=== PATIENT | male | born 1965 | race Caucasian/White ===

== ENCOUNTER 2023-06-29 20:54 | Outpatient (OUT) | payer OTHER, SELFPAY | END 2023-06-29 20:55 | disposition home or self-care (01) | LOC: SLEEP 20:55 | PROVIDERS: PCP Internal Medicine; Visit Provider Internal Medicine | DX: G47.33 Obstructive sleep apnea (adult) (pediatric) (principal) | CPT/HCPCS: 95811 ==

== ENCOUNTER 2024-08-03 06:42 | Outpatient (OUT) | payer OTHER, SELFPAY ==
--- OUTSIDE RECORDS SUMMARY | 2024-08-03 06:44 | XMS_ITS | CCD ---
Author Organization [facility] Informformerly [facility], [facility] Partnership [facility] Care Team Providers Care Specialty Sales Consultant Name Role Phone DR RUDI VELEZ Attending Unavailable ROSIE, DR GRIJALVA Consulting Unavailable ROSIE, DR GRIJALVA Admitting Unavailable LISA SANTIAGO Attending Unavailable Ruid Velez DO Primary Care Provider RUDI VELEZ Attending RUDI Costa Referring Unavailable RUDI VELEZ Primary Care Unavailable RUDI VELEZ Attending Unavailable RUDI VELEZ Referring Unavailable RUDI VELEZ Primary Care Unavailable RUDI VELEZ Referring Unavailable RUDI VELEZ Primary Care Unavailable Medications Current Medications Medication Drug Class(es) Dates Sig (Normalized) Sig (Original) amLODIPine 10 mg oral tablet (19 sources) Dihydropyridine Calcium Channel Amanda Start: 01-11-2023 End: 07-08-2024 take 1 tablet by mouth once daily amLODIPine (NORVASC) 10 mg tablet Indications: Essential (primary) hypertension TAKE 1 TABLET BY MOUTH DAILY 90 tablet 1 07/08/2024 Active atorvastatin 20 mg oral tablet (20 sources) HMG-CoA Reductase Inhibitor Start: 02-09-2023 End: 07-08-2024 take 1 tablet by mouth once daily in the morning atorvastatin (LIPITOR) 20 mg tablet Indications: Hyperlipidemia, unspecified TAKE 1 TABLET BY MOUTH EVERY MORNING 90 tablet 1 07/08/2024 Active chlorthalidone 25 mg oral tablet (19 sources) Thiazide-like Diuretic Start: 01-11-2023 End: 07-08-2024 take 1 tablet by mouth once daily chlorthalidone (HYGROTON) 25 mg tablet Indications: Essential (primary) hypertension TAKE 1 TABLET BY MOUTH DAILY 90 tablet 1 07/08/2024 Active losartan potassium 100 mg oral tablet (20 sources) Angiotensin 2 Receptor Amanda Start: 07-08-2024 take 1 tablet by mouth once daily losartan (COZAAR) 100 mg tablet Indications: Essential (primary) hypertension TAKE 1 TABLET BY MOUTH DAILY 90 tablet 1 07/08/2024 Active Start: 01-11-2023 End: 07-08-2024 take 1 tablet by mouth once daily losartan (COZAAR) 100 mg tablet Indications: Essential (primary) hypertension TAKE 1 TABLET BY MOUTH DAILY 90 tablet 04/08/2024 Active potassium chloride 20 meq extended release oral tablet (17 sources) Start: 05-26-2023 End: 02-10-2024 potassium chloride (K-TAB,KLOR-CON) 20 mEq CR tablet Indications: Essential hypertension take 1 tablet by mouth every morning 90 tablet 1 02/10/2024 Active vardenafil 20 mg oral tablet (20 sources) Phosphodiesterase 5 Inhibitor Start: 12-12-2023 End: 04-12-2024 take 1 tablet by mouth once daily in the morning vardenafiL (LEVITRA) 20 MG tablet Indications: Other male erectile dysfunction TAKE 1 TABLET BY MOUTH EVERY MORNING 6 tablet 1 04/12/2024 Active Start: 09-04-2023 take 1 tablet by khurram th once daily as needed vardenafiL (LEVITRA) 20 MG tablet Indications: Other male erectile dysfunction take 1 tablet by mouth every day as needed 6 tablet 2 09/04/2023 Active Start: 05-08-2023 End: 12-12-2023 take 1 tablet by mouth once daily in the morning vardenafiL (LEVITRA) 20 MG tablet Indications: Other male erectile dysfunction take 1 tablet by mouth every morning 6 tablet 12/12/2023 Active Completed/Discontinued Medications Medication Drug Class(es) Dates Sig (Normalized) Sig (Original) amoxicillin 875 mg / clavulanate 125 mg oral tablet (1 source) Penicillin-class Antibacterial Start: 08-14-2022 End: 05-25-2023 amoxicillin-pot clavulanate (AUGMENTIN) 875-125 mg per tablet Problems Active Problems Problem Classification Problem Date Documented Da te Episodic/Chronic Disorders of lipid metabolism (20 sources) Hyperlipidemia, unspecified; Translations: [Hyperlipidemia] Onset: 2022 Chronic Diverticulosis and diverticulitis (20 sources) Diverticula of intestine; Translations: [Diverticulosis of intestine, part unspecified, without perforation or abscess without bleeding] Onset: 03-01-2018 03-01-2018 Chronic Essential hypertension (20 sources) Essential hypertension; Translations: [Essential (primary) hypertension] Onset: 01-16-2018 05-25-2023 Chronic Immunizations and screening for infectious disease (1 source) Encounter for immunization; Translations: [Encounter for immunization] Onset: 07-12-2024 Episodic Joint disorders and dislocations; trauma-related (4 sources) Tear of lateral meniscus of knee; Translations: [Other tear of lateral meniscus, current injury, left knee, initial encounter] Onset: 01-02-2024 01-02-2024 Episodic Other male genital disorders (6 sources) Other male erectile dysfunction; Translations: [Impotence of organic origin] 10-04-2023 Chronic Other nutritional; endocrine; and metabolic disorders (1 source) Severe obesity; Translations: [Class 3 severe obesity due to excess calories with serious comorbidity and body mass index (BMI) of 40.0 to 44.9 in adult ([facility])] 07-12-2024 Chronic Other nutritional; endocrine; and metabolic disorders (1 source) Morbid (severe) obesity due to excess calories; Translations: [Morbid (severe) obesity due to excess calories] Onset: 07-12-2024 Chronic Other nutritional; endocrine; and metabolic disorders (1 source) Body mass index (BMI) 40.0-44.9, adult; Translations: [Body mass index (BMI) 40.0-44.9, adult] Onset: 07-12-2024 Chronic Other screening for suspected conditions (not mental disorders or infectious disease) (18 sources) Patient encounter status; Translations: [Encounter for screening for malignant neoplasm of prostate] Onset: 02-10-2018 05-25-2023 Episodic Residual codes; unclassified (3 sources) Obstructive sleep apnea syndrome; Translations: [Obstructive sleep apnea (adult) (pediatric)] 05-25-2023 Chronic Residual codes; unclassified (1 source) Obstructive sleep apnea (adult) (pediatric); Translations: [Obstructive sleep apnea (adult) (pediatric)] Onset: 01-02-2024 Chronic Spondylosis; intervertebral disc disorders; other back problems (16 sources) Cervical disc disorder; Translations: [Cervical disc disorder, unspecified, unspecified cervical region] Onset: 05-23-2011 2022 Chronic Unclassified (1 source) Obesity, class 3; Translations: [Obesity, class 3] Onset: 07-12-2024 Unclassified (1 source) Annual Exam Onset: 07-12-2024 Past or Other Problems Problem Classification Problem Date Documented Da te Episodic/Chronic Hemorrhoids (16 sources) External hemorrhoids; Translations: [Residual hemorrhoidal skin tags] Onset: 2022 2022 Episodic Mood disorders (16 sources) Mood disorders Onset: 05-25-2023 Resolved: 07-12-2024 05-25-2023 Unclassified (1 source) Acute tear of medial meniscus of left knee 07-12-2024 Results Test Name Value Interpretation Reference Range Facility COMPREHENSIVE METABOLIC PANE Thiago 07-12-2024 Albumin [Mass/Vol] 4.3 g/dL Normal 3.2-5.3 [facility] Comment on above: Performed By: #### Joni RIVERA 20843-9 #### [facility] ([id number]) [address], [address] [place] [address] ALP [Catalytic activity/Vol] 62 U/L Normal 39-130 [facility] Comment on above: Performed By: #### Joni RIVERA 03106-9 #### [facility] ([id number]) [address], [address] [place] [address] ALT [Catalytic activity/Vol] 25 U/L Normal 0-40 [facility] Comment on above: Performed By: #### Joni RIVERA, 79794-6 #### [facility] ([id number]) [address], [address] [place] [address] Anion gap [Moles/Vol] 9 mmol/L Normal 5-15 [facility] Comment on above: Performed By: #### Joni RIVERA, 78632-6 #### [facility] ([id number]) [address], [address] [place] [address] AST [Catalytic activity/Vol] 24 U/L Normal 0-41 [facility] Comment on above: Performed By: #### Joni RIVERA, 00063-7 #### [facility] ([id number]) [address], [address] [place] [address] Bilirubin [Mass/Vol] 0.6 mg/dL Normal 0.3-1.2 [facility] Comment on above: Performed By: #### Joni RIVERA, 30717-6 #### [facility] ([id number]) [address], [address] [place] [address] Calcium [Mass/Vol] 9.3 mg/dL Normal 8.5-10.5 [facility] Comment on above: Performed By: #### Joni RIVERA, 96598-0 #### [facility] ([id number]) [address], [address] [place] [address] Chloride [Moles/Vol] 100 mmol/L Normal 98-109 [facility] Comment on above: Performed By: #### Joni RIVERA, 99925-8 #### [facility] ([id number]) [address], [address] [place] [address] CO2 [Moles/Vol] 29 mmol/L Normal 22-32 [facility] Comment on above: Performed By: #### Joni RIVERA, 47929-7 #### [facility] ([id number]) [address], [address] [place] [address] Creatinine [Mass/Vol] 0.96 mg/dL Normal 0.60-1.30 [facility] Comment on above: Result Comment: METH OD TRACEABLE TO IDMS STANDARD Performed By: #### Joni RIVERA, 17253-9 #### [facility] ([id number]) [address] [address] [place] [address] eGFR (CKD-EPI) NON-RACE DEPENDENT >90 Normal >59 [facility] Comment on above: Result Comment: Reported eGFR is based on the CKD-EPI 2020 equation that does not use a race coefficient. Performed By: #### Joni RIVERA, 43347-6 #### [facility] ([id number]) [address], [address] [place] [address] Glucose [Mass/Vol] 92 mg/dL Normal 65-99 [facility] Comment on above: Performed By: #### Joni RIVERA, 70446-9 #### [facility] ([id number]) [address], [address] [place] [address] Potassium [Moles/Vol] 3.6 mmol/L Normal 3.5-5.0 [facility] Comment on above: Performed By: #### Joni RIVERA, 38023-6 #### [facility] ([id number]) [address], [address] [place] [address] Protein [Mass/Vol] 7.4 g/dL Normal 6.0-8.0 [facility] Comment on above: Performed By: #### Joni RIVERA, 14538-2 #### [facility] ([id number]) [address], [address] [place] [address] Sodium [Moles/Vol] 138 mmol/L Normal 134-146 [facility] Comment on above: Performed By: #### Joni RIVERA, 86798-7 #### [facility] ([id number]) [address], [address] [place] [address] Urea nitrogen [Mass/Vol] 15 mg/dL Normal 5-23 [facility] Comment on above: Performed By: #### Joni RIVERA, 51867-6 #### [facility] ([id number]) [address], [address] [place] [address] Lipid 1996 panelon 5 Cholesterol [Mass/Vol] 178 mg/dL Normal 150-200 [facility] Comment on above: Performed By: #### Joni RIVERA, 80203-8 #### [facility] ([id number]) [address], [address] [place] [address] Cholesterol in HDL [Mass/Vol] 43 mg/dL Normal >39 [facility] Comment on above: Result Comment: HDL <40 mg/dL - High Risk HDL > or = 40mg/dL- Desirable HDL >60 mg/dL - Negative Risk Performed By: #### oJni RIVERA, 74548-3 #### [facility] ([id number]) [address], [address] [place] [address] Cholesterol in LDL [Mass/Vol] 93 mg/dL Normal <130 [facility] Comment on above: Result Comment: LDL <100 mg/dL - Desirable LDL >160 mg/dL - High Risk Performed By: #### Joni RIVERA, 46119-5 #### [facility] ([id number]) [address] [place] [address] Cholesterol in VLDL [Mass/Vol] 42 mg/dL High 0-30 [facility] Comment on above: Performed By: #### Joni RIVERA, 10325-1 #### [facility] ([id number]) [address] [place] [address] CHOLESTEROL:HDL 4.1 Normal 1.0-5.0 [facility] Comment on above: Performed By: #### Joni RIVERA, 70385-8 #### [facility] ([id number]) [address] [place] [address] Triglyceride [Mass/Vol] 210 mg/dL High 27-150 [facility] Comment on above: Performed By: #### Joni RIVERA, 37359-6 #### [facility] ([id number]) [address] [place] [address] Comprehensive metabolic pane thiago 05-25-2023 Albumin [Mass/Vol] 4.3 g/dL 3.2 - 5.3 g/dL [facility] ALP [Catalytic activity/Vol] 58 U/L 39 - 130 U/L [facility] ALT No additional P-5'-P [Catalytic activity/Vol] 41 U/L High 0 - 40 U/L [facility] Anion gap [Moles/Vol] 11 mmol/L 5 - 15 mmol/L [facility] AST [Catalytic activity/Vol] 34 U/L 0 - 41 U/L [facility] Bilirubin [Mass/Vol] 0.6 mg/dL 0.3 - 1.2 mg/dL [facility] Calcium [Mass/Vol] 9.1 mg/dL 8.5 - 10. 5 mg/dL [facility] Chloride [Moles/Vol] 99 mmol/L 98 - 109 mmol/L [facility] CO2 [Moles/Vol] 28 mmol/L 22 - 32 mmol/L [facility] Creatinine [Mass/Vol] 0.94 mg/dL 0.60 - 1.30 mg/dL [facility] Comment on above: METHOD TRACEABLE TO [facility] STANDARD eGFR (CKD-EPI)non-race dependent - PINF [facility] Comment on above: Reported eGFR is based on the CKD-EPI 2020 equation that does not use a race coefficient. Glucose [Mass/Vol] 90 mg/dL 65 - 99 mg/dL [facility] Potassium [Moles/Vol] 3.3 mmol/L Low 3.5 - 5.0 mmol/L [facility] Protein [Mass/Vol] 7.1 g/dL 6.0 - 8.0 g/dL [facility] Sodium [Moles/Vol] 138 mmol/L 134 - 146 mmol/L [facility] Urea nitrogen [Mass/Vol] 20 mg/dL 5 - 23 mg/dL [facility] Lipid 1996 panelon Cholesterol [Mass/Vol] 209 mg/dL High 150 - 200 mg/dL [facility] Cholesterol in HDL [Mass/Vol] 48 mg/dL 39 - PINF mg/dL [facility] Comment on above: HDL <40 mg/dL - High Risk HDL > or = 40mg/dL- Desirable HDL >60 mg/dL - Negative Risk Cholesterol in LDL [Mass/Vol] 107 mg/dL NINF - 130 mg/dL [facility] Comment on above: LDL <100 mg/dL - Desirable LDL >160 mg/dL - High Risk Cholesterol in VLDL [Mass/Vol] 54 mg/dL High 0 - 30 mg/dL [facility] Cholesterol.total/C holesterol in HDL [Mass ratio] 4.4 {ratio} 1.0 - 5.0 [facility] Triglyceride [Mass/Vol] 270 mg/dL High 27 - 150 mg/dL [facility] No Panel Informationon 05-25 Interpretation and review of laboratory results Abnormal [facility] [employer] [facility] Prostate specific Ag [Mass/V ol]on 05-25-2023 [facility] Prostatic specific antigen s creenon 05-25-2023 Prostate specific Ag [Mass/Vol] 0.45 ng/mL 0.00 - 4.00 ng/mL [facility] Comment on above: The method used for this test is Jeff Megha DXI chemiluminescent immunoassay. Values obtained by different assay methods cannot be used interchangeably. LIPID PROFILEon 02-02-2022 CHOL-HDL RATIO NORM SEE BELOW Normal [facility] Comment on above: Result Comment: 3.3 - 4.4 LOW RISK 4.4 - 7.1 AVERAGE RISK 7.1 - 11.0 MODERATE RISK >11.0 HIGH RISK Performed By: #### L SAMANTHA, CMP #### [facility] [address] [place] [address] Dr. Emelia Tirado Cholesterol [Mass/Vol] 185 mg/dL Normal <=200 [facility] Comment on above: Performed By: #### L SAMANTHA, CMP #### [facility] [address] [place] [address] Dr. Emelia Tirado Cholesterol in HDL [Mass/Vol] 45 mg/dL Normal 40-60 [facility] Comment on above: Performed By: #### L IPID, CMP #### [facility] [address] [address] [address] Emelia Tirado Cholesterol in LDL [Mass/Vol] 94.4 mg/dL Normal [facility] Comment on above: Performed By: #### L IPID, CMP #### [facility] [address] [address] [address] mEelia Tirado Cholesterol.total/C holesterol in HDL [Mass ratio] 4.1 {ratio} Normal [facility] Comment on above: Performed By: #### L IPID, CMP #### [facility] [address] [place] [address] Dr. Emelia Tirado HDL NORMAL > or = 60 mg/dl - LO W CARDIOVASCULAR RISK <40 mg/dl - HIGH CARDIOVASCULAR RISK Normal [facility] Comment on above: Performed By: #### L IPID, CMP #### [facility] [address] [place] [address] Dr. Emelia Tirado LDL CALC NORMAL SEE BELOW Normal [facility] Comment on above: Result Comment: <100 mg/dl OPTIMAL 100 - 129 mg/dl NEAR OR ABOVE OPTIMAL 130 - 159 mg/dl BORDERLINE HIGH 160 - 189 mg/dl HIGH >190 mg/dl VERY HIGH Performed By: #### L IPID, CMP #### [facility] [address] [place] [address] Dr. Emelia Tirado Triglyceride [Mass/Vol] 228 mg/dL Critically high <=150 [facility] Comment on above: Performed By: #### L IPID, CMP #### [facility] [address] [address] [address] Emelia Tirado VLDL CALC 45.6 mg/dL Normal [facility] Comment on above: Performed By: #### L IPID, CMP #### [facility] [address] [place] [address] Dr. Emelia Tirado PROF 14(COMP METB)on 022 Albumin [Mass/Vol] 4.0 g/dL Normal 3.4-5.0 [facility] Comment on above: Performed By: #### L IPID, CMP #### [facility] [address] [place] [address] Dr. Emelia Tirado Albumin/Globulin [Mass ratio] 1.2 {ratio} Normal [facility] Comment on above: Performed By: #### L IPID, CMP #### [facility] [address] [address] [address] Emelia Tirado ALP [Catalytic activity/Vol] 72 U/L Normal 46-116 [facility] Comment on above: Performed By: #### L IPID, CMP #### [facility] [address] [place] [address] Dr. Emelia Tirado ALT [Catalytic activity/Vol] 32 U/L Normal 16-63 [facility] Comment on above: Performed By: #### L IPID, CMP #### [facility] [address] [place] [address] Dr. Emelia Tirado Anion gap [Moles/Vol] 11.1 mmol/L Normal [facility] Comment on above: Performed By: #### L IPID, CMP #### [facility] [address] [place] [address] Dr. Emelia Tirado AST [Catalytic activity/Vol] 23 U/L Normal 15-37 [facility] Comment on above: Performed By: #### L IPID, CMP #### [facility] [address] [place] [address] Dr. Emelia Tirado Bilirubin [Mass/Vol] 0.6 mg/dL Normal 0.2-1.0 [facility] Comment on above: Performed By: #### L IPID, CMP #### [facility] [address] [address] [address] Emelia Tirado Calcium [Mass/Vol] 9.0 mg/dL Normal 8.5-10.1 [facility] Comment on above: Performed By: #### L IPID, CMP #### [facility] [address] [place] [address] Dr. Emelia Tirado Chloride [Moles/Vol] 98 mmol/L Normal 98-107 [facility] Comment on above: Performed By: #### L IPID, CMP #### [facility] [address] [place] [address] Dr. Emelia Tirado CO2 [Moles/Vol] 32.1 mmol/L Critically high 21.0-32.0 [facility] Comment on above: Performed By: #### L IPID, CMP #### [facility] [address] [place] [address] Dr. Emelia Tirado Creatinine [Mass/Vol] 1.12 mg/dL Normal 0.70-1.30 [facility] Comment on above: Performed By: #### L IPID, CMP #### [facility] [address] [place] [address] Dr. Emelia Tirado EGFR-AF [place] >60 Normal >=60 [facility] Comment on above: Performed By: #### L IPID, CMP #### [facility] [address] [place] [address] Dr. Emelia Tirado EGFR-NON AF [place] >60 Normal >=60 [facility] Comment on above: Performed By: #### L IPID, CMP #### [facility] [address] [place] [address] Dr. Emelia Tirado Globulin (S) [Mass/Vol] 3.4 g/dL Normal [facility] Comment on above: Performed By: #### L IPID, CMP #### [facility] [address] [place] [address] Dr. Emelia Tirado Glucose [Mass/Vol] 96 mg/dL Normal 74-106 [facility] Comment on above: Performed By: #### L IPID, CMP #### [facility] [address] [address] [address] Emelia Tirado Potassium [Moles/Vol] 3.2 mmol/L Critically low 3.5-5.1 [facility] Comment on above: Performed By: #### L IPID, CMP #### [facility] [address] [place] [address] Dr. Emelia Tirado Protein [Mass/Vol] 7.4 g/dL Normal 6.4-8.2 [facility] Comment on above: Performed By: #### L IPID, CMP #### [facility] [address] [address] [address] Emelia Tirado Sodium [Moles/Vol] 138 mmol/L Normal 136-145 [facility] Comment on above: Performed By: #### L IPID, CMP #### [facility] [address] [address] [address] Emelia Tirado Urea nitrogen [Mass/Vol] 15.0 mg/dL Normal 7.0-18.0 [facility] Comment on above: Performed By: #### L IPID, CMP #### [facility] [address] [place] [address] Dr. Emelia Tirado Urea nitrogen/Creatinine [Mass ratio] 13.4 mg/mg Normal [facility] Comment on above: Performed By: #### L IPID, CMP #### [facility] [address] [place] [address] Dr. Emelia Tirado COMPREHENSIVE METABOLIC PANE [facility] 06-17-2021 Albumin [Mass/Vol] 4.3 g/dL Normal 3.6-5.1 [facility] Comment on above: Performed By: #### 1 023, 3570 #### [facility] [address] Manager Med Surg: Taz Cordero MD Albumin/Globulin [Mass ratio] 1.8 {ratio} Normal 1.0-2.5 [facility] Comment on above: Performed By: #### 1 023, 6370 #### [facility] [address], [address] [place], [place] [id number] Manager Med Surg: Taz Cordero MD ALP [Catalytic activity/Vol] 68 U/L Normal 35-144 [facility] Comment on above: Performed By: #### 1 023, 1870 #### [facility] [address], [address] [place], [place] [id number] Manager Med Surg: Taz Cordero MD ALT [Catalytic activity/Vol] 34 U/L Normal 9-46 [facility] Comment on above: Performed By: #### 1 0231, 7600 #### [facility] of [address], [address] [place] [address] Manager Med Surg: Taz Cordero MD AST [Catalytic activity/Vol] 25 U/L Normal 10-35 [facility] Comment on above: Performed By: #### 1 0231, 7600 #### [facility] of [address], [address] [place] [address] Manager Med Surg: Taz Cordero MD Bilirubin [Mass/Vol] 0.7 mg/dL Normal 0.2-1.2 [facility] Comment on above: Performed By: #### 1 0231, 7600 #### [facility] of [address] [address] Manager Med Surg: Taz Cordero MD BUN/CREATININE RATIO NOT APPLICABLE Normal 6-22 [facility] Comment on above: Performed By: #### 1 0231, 7600 #### [facility] of [address], [address] [place] [address] Manager Med Surg: Taz Cordero MD Calcium [Mass/Vol] 9.1 mg/dL Normal 8.6-10.3 [facility] Comment on above: Performed By: #### 1 0231, 7600 #### [facility] of [address], [address] [place] [address] Manager Med Surg: Taz Cordero MD Chloride [Moles/Vol] 103 mmol/L Normal 98-110 [facility] Comment on above: Performed By: #### 1 0231, 7600 #### [facility] of [address], [address] [place] [address] Manager Med Surg: Taz Cordero MD CO2 [Moles/Vol] 29 mmol/L Normal 20-32 [facility] Comment on above: Performed By: #### 1 0231, 7600 #### [facility] of [address], [address] [place] [address] Manager Med Surg: Taz Cordero MD Creatinine [Mass/Vol] 1.01 mg/dL Normal 0.70-1.33 [facility] Comment on above: Result Comment: For patients >49 years of age, the reference limit for Creatinine is approximately 13% higher for people identified as -Cameroonian. Performed By: #### 1 023, 7600 #### [facility] [address], [address] [place] [address] Manager Med Surg: Taz Cordero MD eGFR NON-AFR. [place] 83 mL/min/1.73m2 Normal > OR = 60 [facility] Comment on above: Performed By: #### 1 023, 7600 #### [facility] [place] [address] Manager Med Surg: Taz Cordero MD GFR/1.73 sq M.predicted among blacks MDRD (S/P/Bld) [Vol rate/Area] 97 mL/min/{1.73_m2} Normal > OR = 60 [facility] Comment on above: Performed By: #### 1 023, 7600 #### [facility] [address], [address] [place] [address] Manager Med Surg: Taz Cordero MD Globulin (S) [Mass/Vol] 2.4 g/dL Normal 1.9-3.7 [facility] Comment on above: Performed By: #### 1 023, 7600 #### [facility] [address], [address] [place] [address] Manager Med Surg: Taz Cordero MD Glucose [Mass/Vol] 82 mg/dL Normal 65-99 [facility] Comment on above: Result Comment: Fasting reference interval Performed By: #### 1 0231, 7600 #### [facility] [place] [address] Manager Med Surg: Taz Cordero MD Potassium [Moles/Vol] 3.8 mmol/L Normal 3.5-5.3 [facility] Comment on above: Performed By: #### 1 0231, 7600 #### [facility] [address], [address] [place] [address] Manager Med Surg: Taz Cordero MD Protein [Mass/Vol] 6.7 g/dL Normal 6.1-8.1 [facility] Comment on above: Performed By: #### 1 0231, 7600 #### [facility] [place] [address] Manager Med Surg: Taz Cordero MD Sodium [Moles/Vol] 139 mmol/L Normal 135-146 [facility] Comment on above: Performed By: #### 1 0231, 7600 #### [facility] [place] [address] Manager Med Surg: Taz Cordero MD Urea nitrogen [Mass/Vol] 16 mg/dL Normal 7-25 [facility] Comment on above: Performed By: #### 1 023, 7600 #### [facility] [place] [address] Manager Med Surg: Taz Cordero MD LIPID PANEL, [facility] 05-24 Cholesterol [Mass/Vol] 189 mg/dL Normal <200 [facility] Comment on above: Order Comment: FASTI NG:YES FASTING: YES Performed By: #### 1 0231, 7600 #### [facility] [place] [address] Manager Med Surg: Taz Cordero MD Cholesterol in HDL [Mass/Vol] 45 mg/dL Normal > OR = 40 [facility] Comment on above: Order Comment: FASTI NG:YES FASTING: YES Performed By: #### 1 0231, 7600 #### [facility] [place] [address] Manager Med Surg: Taz Cordero MD Cholesterol in LDL [Mass/Vol] 107 mg/dL High [facility] Comment on above: Order Comment: FASTI NG:YES FASTING: YES Result Comment: Refe rence range: <100 Desirable range <100 mg/dL for primary prevention; <70 mg/dL for patients with CHD or diabetic patients with > or = 2 CHD risk factors. LDL-C is now calculated using the Alexander-Serrano calculation, which is a validated novel method providing better accuracy than the Friedewald equation in the estimation of LDL-C. Alexander SS et al. JOHN. 2013;310(19): 4053-4969 (http://education.[employer]/faq/LEL824) Performed By: #### 1 023, 0 #### [facility] [address], [address] [place] [address] Manager Med Surg: Taz Cordero MD Cholesterol.total/C holesterol in HDL [Mass ratio] 4.2 {ratio} Normal <5.0 [facility] Comment on above: Order Comment: FASTI NG:YES FASTING: YES Performed By: #### 1 023, 0 #### [facility] [address], [address] [place] [address] Manager Med Surg: Taz Cordero MD NON HDL CHOLESTEROL 144 mg/dL (calc) High <130 [facility] Comment on above: Order Comment: FASTI NG:YES FASTING: YES Result Comment: For patients with diabetes plus 1 major ASCVD risk factor, treating to a non-HDL-C goal of <100 mg/dL (LDL-C of <70 mg/dL) is considered a therapeutic option. Performed By: #### 1 023, 0 #### [facility] [address], [address] [place] [address] Manager Med Surg: Taz Cordero MD Triglyceride [Mass/Vol] 243 mg/dL High <150 [facility] Comment on above: Order Comment: FASTI NG:YES FASTING: YES Result Comment: If a non-fasting specimen was collected, consider repeat triglyceride testing on a fasting specimen if clinically indicated. Pacheco et al. J. of Clin. Lipidol. 2015;9:129-169. Performed By: #### 1 230, 0 #### [facility] [address], [address] [place] [address] Manager Med Surg: Taz Cordero MD Vital Signs Date Time Vital Sign Value Performing Clinician Karri harvey 07-12-2024 15:22-0500 Body height 175.3 cm Rudi Yuhas DO Work Phone: [facility] [employer] [facility] 07-12-2024 15:22-0500 Body mass index (BMI) [Ratio] 41.05 kg/m2 Rudi Ganhas DO Work Phone: [facility] [employer] [facility] 07-12-2024 15:22-0500 Body weight 126.1 kg Rudi Ganhas DO Work Phone: [facility] [employer] [facility] 07-12-2024 15:22-0500 Diastolic blood pressure 82 mm[Hg] Rudi Ganhas DO Work Phone: [facility] [employer] [facility] 07-12-2024 15:22-0500 Heart rate 66 /min Rudi Ganhas DO Work Phone: [facility] 07-12-2024 15:22-0500 SaO2% (BldA) [Mass fraction] 99 % Rudi Orrs DO Work Phone: [facility] 07-12-2024 15:22-0500 Systolic blood pressure 118 mm[Hg] Rudi Orrs DO Work Phone: [facility] 01-02-2024 14:51-0400 Body height 175.3 cm Rudi Orrs DO Work Phone: [facility] 01-02-2024 14:51-0400 Body mass index (BMI) [Ratio] 39.75 kg/m2 Rudi Ganhas DO Work Phone: [facility] 01-02-2024 14:51-0400 Body temperature 97.7 [degF] Rudi Ganhas DO Work Phone: [facility] [employer] [facility] 01-02-2024 14:51-0400 Body weight 122.11 kg Rudi Ganhas DO Work Phone: [facility] 01-02-2024 14:51-0400 Diastolic blood pressure 70 mm[Hg] Rudi Ganhas DO Work Phone: [facility] 01-02-2024 14:51-0400 Heart rate 56 /min Rudi [facility]elez DO [facility] 01-02-2024 14:51-0400 SaO2% (BldA) [Mass fraction] 98 % Rudi [facility]elez DO [facility] 01-02-2024 14:51-0400 Systolic blood pressure 122 mm[Hg] Rudi Velez DO Work Phone: [facility] [employer] 05-25-2023 16:08-0500 Body height 175.3 cm Rudi [facility]elez DO [facility] 05-25-2023 16:08-0500 Body mass index (BMI) [Ratio] 38.44 kg/m2 Rudi Velez DO Work Phone: [facility] [employer] 05-25-2023 16:08-0500 Body temperature 96.6 [degF] Rudi Velez DO Work Phone: [facility] [employer] 05-25-2023 16:08-0500 Body weight 118.07 kg Rudi [facility]elez DO [facility] 05-25-2023 16:08-0500 Diastolic blood pressure 70 mm[Hg] Rudi [facility]elez DO [facility] 05-25-2023 16:08-0500 Heart rate 81 /min Rudi Velez DO Work Phone: [facility] [employer] 05-25-2023 16:08-0500 SaO2% (BldA) [Mass fraction] 96 % Rudi Velez DO Work Phone: [facility] [employer] 05-25-2023 16:08-0500 Systolic blood pressure 118 mm[Hg] Rudi Velez DO Work Phone: [facility] [employer] [facility] Encounters Encounter Date Encounter Type Care Provider Facility Start: 07-12-2024 End: 07-12-2024 ambulatory RUDI VELEZ [facility] Start: 07-12-2024 End: 07-12-2024 Office outpatient visit 25 minutes Rudi Velez DO Work Phone: [facility] Comment on above: Essential hypertensi on (Primary Dx); EMIL (obstructive sleep apnea); Hyperlipidemia, unspecified hyperlipidemia type; Class 3 severe obesity due to excess calories with serious comorbidity and body mass index (BMI) of 40.0 to 44.9 in adult ([facility]); Acute medial meniscus tear of left knee, subsequent encounter; Encounter for immunization Start: 07-12-2024 End: 07-12-2024 ambulatory [facility] Start: 07-08-2024 End: 07-08-2024 Refill Rudi Velez DO Work Phone: [facility] Comment on above: Essential (primary) hypertension; Hyperlipidemia, unspecified Start: 04-12-2024 End: 04-12-2024 Refill Rudi Velez DO Work Phone: [facility] Comment on above: Other male erectile dysfunction Start: 04-08-2024 End: 04-08-2024 Refill Rudi Velez DO Work Phone: [facility] Comment on above: Essential (primary) hypertension Start: 02-10-2024 End: 02-10-2024 Refill Rudi Velez DO Work Phone: [facility] Comment on above: Other male erectile dysfunction; Essential hypertension Start: 01-08-2024 End: 01-08-2024 Refill Rudi Velez DO Work Phone: [facility] Comment on above: Hyperlipidemia, unsp ecified; Essential (primary) hypertension Start: 01-02-2024 End: 01-02-2024 Office outpatient visit 25 minutes Rudi Velez DO Work Phone: [facility] - [facility] Comment on above: Essential hypertensi on (Primary Dx); EMIL (obstructive sleep apnea); Tear of lateral meniscus of left knee, current, initial encounter Start: 01-02-2024 End: 01-02-2024 ambulatory RUDI VELEZ [facility] Start: 12-12-2023 End: 12-12-2023 Refill Rudi Velez DO Work Phone: [facility] Comment on above: Other male erectile dysfunction Start: 11-10-2023 End: 11-10-2023 Refill Rudi Velez DO Work Phone: [facility] Comment on above: Other male erectile dysfunction Start: 11-07-2023 End: 11-23-2023 Telephone encounter Rudi Velez DO Work Phone: [facility] Start: 10-06-2023 End: 10-07-2023 Refill Rudi Velez DO Work Phone: [facility] Comment on above: Essential hypertensi on; Essential (primary) hypertension Start: 10-04-2023 End: 10-04-2023 Refill Rudi Velez DO Work Phone: [facility] Comment on above: Hyperlipidemia, unsp ecified; Other male erectile dysfunction Start: 09-26-2023 End: 09-26-2023 ambulatory LISA SANTIAGO Not Available Start: 09-03-2023 End: 09-04-2023 Refill Rudi Velez DO Work Phone: [facility] Comment on above: Other male erectile dysfunction Start: 08-08-2023 Refill Rudi Vleez D O Work Phone: [facility] Comment on above: Hyperlipidemia, unsp ecified Start: 07-11-2023 Refill Rudi Velez D O Work Phone: [facility] Comment on above: Essential (primary) hypertension Start: 05-25-2023 End: 05-25-2023 Encounter for general adult medical examination with abnormal findings Rudi Velez DO [facility] Work Phone: Start: 05-25-2023 End: 05-25-2023 Periodic preventive med est patient 40-64yrs Rudi Lilliam Velez DO Work Phone: [facility] Comment on above: Abnormal wellness ex am (Primary Dx); EMIL (obstructive sleep apnea); Encounter for screening for malignant neoplasm of prostate; Essential hypertension; Hyperlipidemia, unspecified hyperlipidemia type Start: 02-02-2022 End: 02-03-[address] RUDI VELEZ Facility:[facility]1 Procedures Date Procedure Procedure Detail Performing Clinician Start: 07-12-2024 Adult depression screening assessment Rudi Velez DO Work Phone: Start: 05-25-2023 Adult depression screening assessment Rudi Velez DO Work Phone: Plan of Treatment Date Care Activity Detail Author Start: 08-16-2032 DTaP,Tdap and Td Vaccines (2 - Td or Tdap) DTaP,Tdap and Td Vaccines (2 - Td or Tdap) [facility] Start: 07-12-2025 Adult BMI Screening Adult BMI Screen ing [facility] Start: 07-12-2025 Depression Screening Depression Scre ening [facility] Start: 07-12-2025 Tobacco Screening Tobacco Screening [facility] Start: 01-01-2025 Adult BMI Screening Adult BMI Screen ing [facility] Start: 01-01-2025 Tobacco Screening Tobacco Screening [facility] Start: 07-12-2024 End: 07-12-2024 Patient encounter procedure 07/12/2024 3:30 PM EST [facility] [address] [place] [address] Rudi Velez DO [address] [place] [address] [facility] Start: 07-12-2024 End: 07-12-2025 MR Knee WO contrast MR knee left without contrast Imaging Routine Acute medial meniscus tear of left knee, subsequent encounter Expected: 07/12/2024, Expires: 07/12/2025 [facility] Work Phone: Comment on above: Expected: 07/12/2024 , Expires: 07/12/2025 Start: 05-29-2024 End: 05-29-2024 Patient encounter procedure 05/29/2024 2:00 PM EST Office Visit [facility] [address] [place] [address] Rudi Velez, [address] [place] [address] [facility] Start: 05-25-2024 Adult BMI Screening Adult BMI Screen ing [facility] Start: 05-25-2024 Depression Screening Depression Scre ening [facility] Start: 05-25-2024 Tobacco Screening Tobacco Screening [facility] Start: 01-22-2024 COVID-19 Vaccine ( season) COVID-19 Vaccine ( season) [facility] Start: 01-22-2024 COVID-19 Vaccine ( season) COVID-19 Vaccine ( season) [facility] Start: 01-22-2024 Influenza vaccination Influenza Vacc ine [facility] Start: 01-02-2024 End: 01-02-2024 Patient encounter procedure 01/02/2024 3:00 PM EDT Office Visit [facility] - Family [facility] [address] [place] [address] Rudi Velez, [address] [place] [address] [facility] Start: 01-21-2023 COVID-19 Vaccine ( season) COVID-19 Vaccine ( season) [facility] Start: 01-21-2023 Influenza vaccination Influenza Vacc ine [facility] Start: 01-28-1984 Adult BMI Follow Up Plan Adult BMI Follow Up Plan [facility] End: 01-01-2025 Basic metabolic 2000 panel - Serum or Plasma Basic Metabolic Panel Lab Routine Essential hypertension 1 Occurrences starting 01/02/2024 until 01/01/2025 [facility] Work Phone: Comment on above: 1 Occurrences starti ng 01/02/2024 until 01/01/2025 End: 07-12-2025 Comprehensive metabolic 2000 panel - Serum or Plasma Comprehensive metabolic panel Lab Routine Hyperlipidemia, unspecified hyperlipidemia type 1 Occurrences starting 07/12/2024 until 07/12/2025 [facility] Comment on above: 1 Occurrences starti ng 07/12/2024 until 07/12/2025 End: 07-12-2025 Lipid 1996 panel - Serum or Plasma Lipid profile Lab Routine Hyperlipidemia, unspecified hyperlipidemia type 1 Occurrences starting 07/12/2024 until 07/12/2025 [facility] Comment on above: 1 Occurrences starti ng 07/12/2024 until 07/12/2025 Immunizations Immunization Date Immunization Notes Care Provider Fa cili 07-12-2024 influenza, seasonal, injectable, preservative free Rudi Velez DO Work Phone: [facility] 07-12-2024 Immunization, In Clinic,; Translations: [Drug or medicament (substance)] Rudi Velez DO Work Phone: [facility] 08-16-2022 tetanus toxoid, redu tanvir diphtheria toxoid, and acellular pertussis vaccine, adsorbed Rudi Velez DO Work Phone: [facility] 02-26-2021 influenza, seasonal, injectable Rudi Velez DO Work Phone: [facility] 02-26-2021 influenza virus vaccine, unspecified formulation Rudi Velez DO Work Phone: [facility] 03-06-2020 influenza, intraderm al, quadrivalent, preservative free, injectable Rudi Velez DO Work Phone: [facility] 02-05-2020 influenza, injectabl e, quadrivalent, preservative free Rudi Orrs DO Work Phone: [facility] 12-05-2018 zoster vaccine recombinant Rudi Orrs DO Work Phone: [facility] 06-08-2018 zoster vaccine recombinant Rudi Orrs DO Work Phone: [facility] 02-20-2018 zoster vaccine recombinant Rudi Orrs DO Work Phone: [facility] 02-21-2016 influenza, seasonal, injectable Rudi Orrs DO Work Phone: [facility] 03-31-2015 influenza, seasonal, injectable, preservative free Rudi Velez DO Work Phone: [facility] 04-15-2009 novel [id number], preservative-free, injectable Rudi Velez DO Work Phone: [facility] Payers Date Payer Category Payer Managed Care Other (unspecified) [employer] [id number] 2022 Private Health Insurance [facility] [employer] [id number] 2022-Present [phone] [address] [address] [place] [address] [id number] 2022 Unknown [id number] 1966 Unknown [id number] 1966 Unknown [id number] 1966 Unknown [id number] 1966 Unknown [id number] 1966 Unknown [id number] 1959 Unknown [id number] Social History Date Type Detail Facility Start: 08-16-2022 Tobacco smoking stat [facility] Never smoked tobacco [facility] Start: 08-16-2022 Tobacco use and exposure Smokeless tobacco non-user [facility] Start: 05-25-2023 End: 07-12-2024 Alcohol intake Current drinker of alcohol (finding) [facility] Start: 07-03-2020 End: 05-25-2023 Alcohol intake [facility] Start: 07-03-2020 End: 05-25-2023 Tobacco use panel [facility] Adolescent depressio n screening assessment 0 [facility] Start: 1965 Sex Assigned At Not on file P [facility] How hard is it for y ou to pay for the very basics like food, housing, medical care, and heating Not very hard [facility] Start: 12-26-2014 Sex Male (finding) [facility] Clinical Notes 05-25-2023 to 07-12-2024 Rudi Velez, - 07/12/2024 3:30 PM ESTRudi Velez, DO - 01/02/2024 3:00 PM EDTTelephone Encounter - Jessica Cohu - 11/07/2023 11:09 AM EDTRudi Velez, - 05/25/2023 3:30 PM EST Note Date & Type Note Facility 07-12-2024 History of Presen t illness Narrative IM PROGRESS NOTE Patient - Stacy Boles Age - 59 [facility] 1965 [id number] ASSESSMENT & PLAN 1. Essential hypertension (Primary) -goals of treatment were reviewed with the patient. -home and office readings are at goal-continue losartan 100 mg daily plus amlodipine 10 mg daily plus chlorthalidone 25 mg daily 2. EMIL (obstructive sleep apnea) -using his CPAP 99% of the time -unable to sleep without it -definitely is benefitting from ongoing use 3. Hyperlipidemia, unspecified hyperlipidemia type -currently taking atorvastatin 20 mg daily -repeat lipid panel to assess efficacy of current treatment - Comprehensive metabolic panel; Future - Lipid profile; Future 4. Class 3 severe obesity due to excess calories with serious comorbidity and body mass index (BMI) of 40.0 to 44.9 in adult ([facility]) -I reviewed his current weight and BMI -I advised him that he is in the severe obesity category -we discussed weight loss methods including structured diet such as lose it or weight watchers -may also benefit from addition of a G LP 1 agent 5. Acute medial meniscus tear of left knee, subsequent encounter -Luis test positive once again -continues to have symptoms, with more instability at this time -proceed with MRI of the knee, and further recommendations following results - MR knee left without contrast; Future 6. Encounter for immunization -flu vaccination given today - FLU VACCINE TS 2023-(6MOS UP)(PF) 45 MCG(15MCG X3)/0.5 ML IM SYRINGE - Immunization, In Clinic,; Inject into the appropriate muscle once for 1 dose. Sign this order to satisfy the OSBOP Positive ID requirements for immunization orders. Subjective CARDIOVASCULAR FOLLOW-UP This is a follow up of a pre-existing problem. Blood pressures are being checked outside the office. Frequency: occasional Readings have been normal. BP readings outside the office range from 120 - 129 mmHg systolic and 60 - 69 mmHg diastolic. The 10-year ASCVD risk score (Mei MAYNARD, et al., 2019) is: 8% Values used to calculate the score: Age: 59 years Sex: Male Is Non- : No Diabetic: No Tobacco smoker: No Systolic Blood Pressure: 118 mmHg Is BP treated: Yes HDL Cholesterol: 48 mg/dL Total Cholesterol: 209 mg/dL Patient reports following dosing instructions Physical activity: The patient does not participate in regular exercise at present. His knee has been bothering him. Dietary efforts show could use some improvement. Not restricting calories or portion sizes. CV symptoms review was negative for rapid or irregular heart rate, palpitations, syncope A review of systems was negative except for the following: General: weight gain Musculoskeletal: pain in knee - left. Dull ache sensation after walking or standing on his left knee. Does feel some instability when walking down stairs, or planting heavily on his left leg. Exam BP 118/82 (BP Site: Left Arm, BP Postition: Sitting) Pulse 66 Ht 175.3 cm (5' 9 ) Wt 126.1 kg (278 lb) SpO2 99% BMI 41.05 kg/m Physical Exam Vitals reviewed. Constitutional: General: He is not in acute distress. Appearance: He is obese. He is not toxic-appearing. HENT: Head: Normocephalic. Right Ear: External ear normal. Left Ear: External ear normal. Nose: No congestion or rhinorrhea. Mouth/Throat: Pharynx: No posterior oropharyngeal erythema. Eyes: General: No scleral icterus. Neck: Vascular: No carotid bruit. Cardiovascular: Rate and Rhythm: Normal rate. Pulses: Normal pulses. Heart sounds: No murmur heard. No gallop. Pulmonary: Effort: Pulmonary effort is normal. Breath sounds: No wheezing or rales. Abdominal: Palpations: Abdomen is soft. Musculoskeletal: General: Tenderness (Lateral left knee joint) present. No swelling. Right lower leg: No edema. Left lower leg: No edema. Comments: Left popliteal fossa without tenderness or pain. Left knee Luis with clicking in the medial joint space. Left knee drawer sign negative. No effusion noted. Lymphadenopathy: Cervical: No cervical adenopathy. Skin: General: Skin is warm and dry. Coloration: Skin is not jaundiced. Findings: No bruising. Neurological: General: No focal deficit present. Mental Status: He is alert and oriented to person, place, and time. Psychiatric: Mood and Affect: Mood normal. Behavior: Behavior normal. Meds Current Outpatient Medications: amLODIPine (NORVASC) 10 mg tablet, TAKE 1 TABLET BY MOUTH DAILY, Disp: 90 tablet, Rfl: 1 atorvastatin (LIPITOR) 20 mg tablet, TAKE 1 TABLET BY MOUTH EVERY MORNING, Disp: 90 tablet, Rfl: 1 chlorthalidone (HYGROTON) 25 mg tablet, TAKE 1 TABLET BY MOUTH DAILY, Disp: 90 tablet, Rfl: 1 losartan (COZAAR) 100 mg tablet, TAKE 1 TABLET BY MOUTH DAILY, Disp: 90 tablet, Rfl: 1 potassium chloride (K-TAB,KLOR-CON) 20 mEq CR tablet, take 1 tablet by mouth every morning, Disp: 90 tablet, Rfl: 1 vardenafiL (LEVITRA) 20 MG tablet, TAKE 1 TABLET BY MOUTH EVERY MORNING, Disp: 6 tablet, Rfl: 1 Immunization, In Clinic,, Inject into the appropriate muscle once for 1 dose. Sign this order to satisfy the OSBOP Positive ID requirements for immunization orders., Disp: , Rfl: Lab Results No visits with results within 1 Month(s) from this visit. Latest known visit with results is: Orders Only on 01/05/2024 Component Date Value Ref Range Status External Anion Gap 01/04/2024 9.0 Final External Blood Urea Nitrogen Bun 01/04/2024 23 Final External Calcium Ca 01/04/2024 9.6 Final External Chloride 01/04/2024 102 Final External Co2 / Carbon Dioxide 01/04/2024 29 Final External Creatinine 01/04/2024 1.40 Final External Gfr Non Amer 01/04/2024 59 Final External Glucose Fasting Or Rando* 01/04/2024 122 Final External Potassium K 01/04/2024 3.6 Final External Sodium Na 01/04/2024 140 Final Other Testing No results found. Rudi Velez DO., [facility] Office: [phone] documented in this encounter [facility] 01-02-2024 History of Presen t illness Narrative IM PROGRESS NOTE Patient - Stacy Boles Age - 58 y.o. - 1965 ASSESSMENT & PLAN 1. Essential hypertension -goals of treatment reviewed with the patient. -he currently is at goal in office and at home -no change to amlodipine 10 mg daily plus losartan 100 mg daily plus chlorthalidone 25 mg daily, with K-Tab 20 mEq daily -repeat BMP to assess previously noted hypokalemia - Basic Metabolic Panel; Future 2. EMIL (obstructive sleep apnea) -now on CPAP nightly and as needed -he is tolerating well, and feels better using it -no changes 3. Tear of lateral meniscus of left knee, current, initial encounter -this appears to be very mild, but does have S/S consistent with a tear -we discussed treatment options -will proceed with conservative therapy utilizing HEP involving strengthening of the quadriceps and other leg muscles -he was advised to wear a elastic knee brace when performing prolonged activity on his legs, or when on uneven surfaces -if symptoms would worsen, will need imaging of the left knee Subjective CARDIOVASCULAR FOLLOW-UP This is a follow up of a pre-existing problem. Blood pressures are being checked outside the office. Frequency: weekly Readings have been normal. BP readings outside the office range from 120 - 129 mmHg systolic and 60 - 69 mmHg diastolic. 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 Has not been as strict recently. CV symptoms review was negative for rapid or irregular heart rate, palpitations, syncope A review of systems was negative except for the following: General: weight gain Respiratory: Now taking and using a CPAP machine nightly, and even when he is napping. It feels comfortable and he says it really has helped him feel more rested and have more energy. He definitely derives benefit. Musculoskeletal: joint stiffness and intermittent aching in the left knee. Occurred after jumping over a drainage ditch about 1 year ago. Landed hard on his left knee. Following this the knee has felt stiff and like it is swollen, even though when he looks at it he does not see swelling. No problems when he is on level ground, but uneven ground causes it ache and feel unsteady although he has not fallen. He has never had problems with his knee prior to this. He has not been taking or doing anything specific for the knee at this time. Exam BP 122/70 (BP Site: Left Arm, BP Postition: Sitting) Pulse 56 Temp 36.5 C (97.7 F) (Tympanic) Ht 175.3 cm (5' 9 ) Wt 122.1 kg (269 lb 3.2 oz) SpO2 98% BMI 39.75 kg/m Physical Exam Vitals reviewed. Constitutional: General: He is not in acute distress. Appearance: He is obese. He is not toxic-appearing. HENT: Head: Normocephalic. Right Ear: External ear normal. Left Ear: External ear normal. Nose: No congestion or rhinorrhea. Mouth/Throat: Pharynx: No posterior oropharyngeal erythema. Eyes: General: No scleral icterus. Neck: Vascular: No carotid bruit. Cardiovascular: Rate and Rhythm: Normal rate. Pulses: Normal pulses. Heart sounds: No murmur heard. No gallop. Pulmonary: Effort: Pulmonary effort is normal. Breath sounds: No wheezing or rales. Abdominal: Palpations: Abdomen is soft. Musculoskeletal: General: Tenderness (Lateral left knee joint) present. No swelling. Right lower leg: No edema. Left lower leg: No edema. Comments: Mild fullness in the left popliteal fossa, without tenderness or pain. Left knee Luis with clicking in the lateral joint space. Left knee drawer sign negative. No effusion noted. Lymphadenopathy: Cervical: No cervical adenopathy. Skin: General: Skin is warm and dry. Coloration: Skin is not jaundiced. Findings: No bruising. Neurological: General: No focal deficit present. Mental Status: He is alert and oriented to person, place, and time. Psychiatric: Mood and Affect: Mood normal. Behavior: Behavior normal. Meds Current Outpatient Medications: amLODIPine (NORVASC) 10 mg tablet, TAKE 1 TABLET BY MOUTH EVERY DAY, Disp: 90 tablet, Rfl: 1 atorvastatin (LIPITOR) 20 mg tablet, Take 1 tablet (20 mg total) by mouth every morning., Disp: 90 tablet, Rfl: 0 chlorthalidone (HYGROTON) 25 mg tablet, TAKE 1 TABLET BY MOUTH EVERY DAY, Disp: 90 tablet, Rfl: 1 losartan (COZAAR) 100 mg tablet, Take 1 tablet (100 mg total) by mouth in the morning., Disp: 90 tablet, Rfl: 0 potassium chloride (K-TAB,KLOR-CON) 20 mEq CR tablet, Take 1 tablet (20 mEq total) by mouth in the morning., Disp: 90 tablet, Rfl: 0 vardenafiL (LEVITRA) 20 MG tablet, take 1 tablet by mouth every morning, Disp: 6 tablet, Rfl: 0 Lab Results No visits with results within 1 Month(s) from this visit. Latest known visit with results is: Hospital Outpatient Visit on 05/25/2023 Component Date Value Ref Range Status Prostatic specific antigen, screen 05/25/2023 0.45 0.00 - 4.00 ng/mL Final Sodium 05/25/2023 138 134 - 146 mmol/L Final Potassium, Bld 05/25/2023 3.3 (L) 3.5 - 5.0 mmol/L Final Chloride 05/25/2023 99 98 - 109 mmol/L Final CO2 05/25/2023 28 22 - 32 mmol/L Final Anion gap 05/25/2023 11 5 - 15 mmol/L Final BUN 05/25/2023 20 5 - 23 mg/dL Final Creatinine 05/25/2023 0.94 0.60 - 1.30 mg/dL Final Glucose 05/25/2023 90 65 - 99 mg/dL Final Calcium 05/25/2023 9.1 8.5 - 10.5 mg/dL Final Total Protein 05/25/2023 7.1 6.0 - 8.0 g/dL Final Albumin 05/25/2023 4.3 3.2 - 5.3 g/dL Final Alkaline Phosphatase 05/25/2023 58 39 - 130 U/L Final AST 05/25/2023 34 0 - 41 U/L Final ALT 05/25/2023 41 (H) 0 - 40 U/L Final Total bilirubin 05/25/2023 0.6 0.3 - 1.2 mg/dL Final eGFR (CKD-EPI)non-race dependent 05/25/2023 >90 >59 ml/min/1.73sq.m Final Cholesterol 05/25/2023 209 (H) 150 - 200 mg/dL Final Triglycerides 05/25/2023 270 (H) 27 - 150 mg/dL Final HDL Cholesterol 05/25/2023 48 >39 mg/dL Final VLDL 05/25/2023 54 (H) 0 - 30 mg/dL Final LDL (calc) 05/25/2023 107 <130 mg/dL Final Cholesterol:HDL Ratio 05/25/2023 4.4 1.0 - 5.0 Final Other Testing No results found. ECG: Rudi Velez DO., [facility]: [phone] documented in this encounter [facility] 11-07-2023 Miscellaneous Notes Formattin g of this note might be different from the original. ----- Message from Rudi Velez DO sent at 05/25/2023 7:06 PM EST ----- CV recheck Sent mychart msg LM on MV Sending letter documented in this encounter [facility] 11-07-2023 Telephone encount er Note ----- Message from Rudi Velez DO sent at 05/25/2023 7:06 PM EST ----- CV recheck [facility] 11-07-2023 Telephone encount er Note [facility]-07-2023 Telephone encount er Note LM on MV [facility] 11-07-2023 Telephone encount er Note [facility]ending [facility] 10-04-2023 Miscellaneous Notes Formattin g of this note might be different from the original. Transfer to new pharmacy has held up two refills for Livitra and Lipitor. Requesting new scripts to updated pharmacy documented [facility] this [facility] 10-04-2023 Telephone encount er Note Transfer to new pharmacy has held up two refills for Livitra and Lipitor. [facility] History of Presen t illness Narrative IM PROGRESS NOTE Patient - Stacy Boles Age - 58 y.o. - 1965 ASSESSMENT & PLAN Patient presented to office today for Annual Adult Wellness Visit. Education was provided on healthy nutrition, including a diet rich in fruits and vegetables, minimizing simple carbohydrates, salt, and saturated fats. Encouraged regular cardiovascular exercise such as walking at least 30 minutes daily, 5 times per week - goal. Emphasized preventive health measures reduce health risks and promote healthy living. Goal for pt. is to achieve healthy BMI of 25 or under to reduce risk of developing diabetes and cardiovascular diseases. 1. Abnormal wellness exam -health maintenance recommendations as appropriate for a 58-year-old male were reviewed and discussed with the patient. Is up-to-date on colon cancer screening. Will order prostate cancer screening. Continue to work on weight loss for helping blood pressure and potentially EMIL - Comprehensive metabolic panel; Future - Prostatic specific antigen screen; Future 2. EMIL (obstructive sleep apnea) -STOP-BANG score 6/7 today -discussed significance of the score with the patient -proceed with home sleep study through [facility] 3. Encounter for screening for malignant neoplasm of prostate -PSA to be drawn - Lipid profile; Future 4. Essential hypertension -goals of treatment reviewed with patient -home readings generally at goal -continue losartan, amlodipine and chlorthalidone at current dosing 5. Hyperlipidemia, unspecified hyperlipidemia type -currently on atorvastatin 20 mg daily -repeat lipid panel to assess efficacy of current treatment Subjective 58-year-old male presents for yearly wellness evaluation. Since last visit he has gained some weight. He thinks most of this is been recently through the holidays. -overall his activity levels have been the same. 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 No problems performing his job. -has had no problems taking or tolerating his medications. Not checking BP routinely at home. -he does report that his has been complaining of him snoring more over the past year. He also reports feeling more fatigued throughout the day, and falls asleep easily in the afternoon or evening. There has a family history of sleep apnea. A STOP-BANG score today was 6/7. A review of systems was negative except for the following: General: sleep disturbance and weight gain Genito-Urinary: Does urinate more frequently than in the past. No routine nocturia.. Exam BP 118/70 (BP Site: Left Arm, BP Postition: Sitting) Pulse 81 Temp (!) 35.9 C (96.6 F) (Temporal) Ht 175.3 cm (5' 9 ) Wt 118.1 kg (260 lb 4.8 oz) SpO2 96% BMI 38.44 kg/m Physical Exam Vitals reviewed. Constitutional: General: He is not in acute distress. Appearance: He is obese. He is not toxic-appearing. HENT: Head: Normocephalic. Right Ear: External ear normal. Left Ear: External ear normal. Nose: No congestion or rhinorrhea. Mouth/Throat: Pharynx: No posterior oropharyngeal erythema. Eyes: General: No scleral icterus. Conjunctiva/sclera: Conjunctivae normal. Neck: Vascular: No carotid bruit. Comments: Neck circumference 44 cm Cardiovascular: Rate and Rhythm: Normal rate. Pulses: Normal pulses. Heart sounds: No murmur heard. No gallop. Pulmonary: Effort: Pulmonary effort is normal. Breath sounds: No wheezing or rales. Abdominal: Palpations: Abdomen is soft. Musculoskeletal: Right lower leg: No edema. Left lower leg: No edema. Lymphadenopathy: Cervical: No cervical adenopathy. Skin: General: Skin is warm and dry. Coloration: Skin is not jaundiced. Findings: No bruising. Neurological: General: No focal deficit present. Mental Status: He is alert and oriented to person, place, and time. Psychiatric: Mood and Affect: Mood normal. Behavior: Behavior normal. Meds Current Outpatient Medications: amLODIPine (NORVASC) 10 mg tablet, TAKE 1 TABLET BY MOUTH EVERY DAY, Disp: 30 tablet, Rfl: 5 atorvastatin (LIPITOR) 20 mg tablet, TAKE 1 TABLET BY MOUTH EVERY DAY, Disp: 90 tablet, Rfl: 1 chlorthalidone (HYGROTON) 25 mg tablet, TAKE 1 TABLET BY MOUTH EVERY DAY, Disp: 30 tablet, Rfl: 5 losartan (COZAAR) 100 mg tablet, TAKE 1 TABLET BY MOUTH EVERY DAY, Disp: 30 tablet, Rfl: 5 vardenafiL (LEVITRA) 20 MG tablet, TAKE 1 TABLET BY MOUTH EVERY DAY NEEDED, Disp: 6 tablet, Rfl: 2 Lab Results No visits with results within 1 Month(s) from this visit. Latest known visit with results is: Orders Only on 02/11/2022 Component Date Value Ref Range Status External Cholesterol 02/02/2022 185 200 Final External Cholesterol:Hdl 02/02/2022 4.1 Final External Hdl Cholesterol 02/02/2022 45 40 - 60 Final External Ldl (Calc) 02/02/2022 94.4 Final External Triglycerides 02/02/2022 228 (A) 150 Final External Very Low Lipoprotein 02/02/2022 45.6 Final Other Testing No results found. Rudi Velez DO., [facility]: [phone] documented in this encounter [facility] Evaluation note Diagnosis Abnormal wellness exam- Primary EMIL (obstructive sleep apnea) Obstructive sleep apnea (adult) (pediatric) Encounter for screening for malignant neoplasm of prostate Essential hypertension Unspecified essential hypertension Hyperlipidemia, unspecified hyperlipidemia type [facility] Diagnosis Hyperlipidemia, unspecified Other male erectile dysfunction [facility] Diagnosis Essential hypertension Unspecified essential hypertension Essential (primary) hypertension Unspecified essential hypertension [facility] Diagnosis Other male erectile dysfunction [facility] Diagnosis Essential (primary) hypertension Unspecified essential hypertension [facility] Diagnosis Other male erectile dysfunction [facility] Diagnosis Hyperlipidemia, unspecified [facility] Diagnosis Essential hypertension- Primary Unspecified essential hypertension EMIL (obstructive sleep apnea) Obstructive sleep apnea (adult) (pediatric) Tear of lateral meniscus of left knee, current, initial encounter [facility] Diagnosis Hyperlipidemia, unspecified Essential (primary) hypertension Unspecified essential hypertension [facility] Diagnosis Other male erectile dysfunction Essential hypertension Unspecified essential hypertension [facility]* Diagnosis Essential (primary) hypertension Unspecified essential hypertension Hyperlipidemia, unspecified [facility] Diagnosis Essential (primary) hypertension Unspecified essential hypertension [facility] Diagnosis Essential hypertension- Primary Unspecified essential hypertension EMIL (obstructive sleep apnea) Obstructive sleep apnea (adult) (pediatric) Hyperlipidemia, unspecified hyperlipidemia type Class 3 severe obesity due to excess calories with serious comorbidity and body mass index (BMI) of 40.0 to 44.9 in adult ([facility]) Acute medial meniscus tear of left knee, subsequent encounter Encounter for immunization documented [facility] this [facility] filedocumented in this encounter [facility] filedocumented in this encounter [facility] filedocumented in this encounter [facility] filedocumented in this encounter [facility] filedocumented in this encounter [facility] filedocumented in this encounter [facility] Summary Purpose Family History No Family History Records FoundNo Family History Records FoundNo Family History Records FoundNo Family History Records FoundNo Family History Records Found Advance Directives No Advanced Directives Records FoundNo Advanced Directives Records FoundNo Advanced Directives Records FoundNo Advanced Directives Records FoundNo Advanced Directives Records Found Additional Source Comments (unrecognized sect ion and content) No Status Records FoundNo Status Records FoundNo Status Records FoundNo Status Records FoundNo Status Records Found INFORMATION SOURCE (unrecogn ized section and content) DATE CREATED AUTHOR 06/18/2021 [facility] DATE CREATED AUTHOR AUTHOR'S ORGANIZ ATION 02/20/2022 [facility] DATE CREATED AUTHOR AUTHOR'S ORGANIZ ATION 09/27/2023 [facility] EP[facility] DATE CREATED AUTHOR AUTHOR'S ORGANIZ ATION 07/14/2024 [facility] DATE CREATED AUTHOR AUTHOR'S ORGANIZ ATION 07/15/2024 [facility] Reason for Visit (unrecogniz ed section and content) Reason Comments Annual Exam Reason Onset Date Comments Med Refill 10/04/2023 Reason Onset Date Comments Med Refill 10/06/2023 Reason Comments Med Refill Reason Comments Hyperlipidemia Hypertension Reason Comments Annual Exam Care Teams (unrecognized sec tion and content) Specialty Sales Consultant Relationship Specialty Start Date End Date Rudi Velez DO [address] [place] [address] PCP - General Internal Medicine 02/27/18 Specialty Sales Consultant Relationship Specialty Start Date End Date Rudi Velez DO [address] [place] [address] PCP - General Internal Medicine 02/27/18 Specialty Sales Consultant Relationship Specialty Start Date End Date Rudi Velez DO [address] [place] [address] PCP - General Internal Medicine 02/27/18 Specialty Sales Consultant Relationship Specialty Start Date End Date Rudi Velez DO [address] [place] [address] PCP - General Internal Medicine 02/27/18 Specialty Sales Consultant Relationship Specialty Start Date End Date Rudi Velez DO [address] [place] [address] PCP - General Internal Medicine 02/27/18 Specialty Sales Consultant Relationship Specialty Start Date End Date Rudi Velez DO [address] [place] [address] PCP - General Internal Medicine 02/27/18 Specialty Sales Consultant Relationship Specialty Start Date End Date Rudi Velez DO [address] [place] [address] PCP - General Internal Medicine 02/27/18 Specialty Sales Consultant Relationship Specialty Start Date End Date Rudi Velez DO [address] [place] [address] PCP - General Internal Medicine 02/27/18 FOR RECORDS PERTAINING TO PATIENTS WHO ARE OR HAVE BEEN ENROLLED IN A CHEMICAL DEPENDENCY/SUBSTANCEABUSE PROGRAM, SOME INFORMATION MAY BE OMITTED. This clinical summary was aggregated from multiple sources. Caution should be exercised in using it in the provision of clinical care. This summary normalizes information from multiple sources, and as a consequence, information in this document may materially change the coding, format and clinical context of patient data. In addition, data may be omitted in some cases. CLINICAL DECISIONS SHOULD BE BASED ON THE PRIMARY CLINICAL RECORDS. [facility]. provides no warranty or guarantee of the accuracy or completeness of information in this document.
--- NOTE | 2024-08-03 06:45 | MR_ITS ---
[address] [address] Patient Name: STACY DUKES MRN: [id number] date: 1965 Sex: M Assigned Patient Location: MRI Current Patient Location: MRI Accession/Order Number: [id number] Exam Date: 08/03/2024 15:35 Report Date: 08/03/2024 15:44 At the request of: RUDI VELEZ Procedure: MR knee LT wo con MRI of the leftKnee without contrast TECHNIQUE: Multiplanar T1 and T2-weighted imaging of the knee obtained without contrast HISTORY: Left knee injury. Onset one half years ago. Continued pain. COMPARISON:None BONE MARROW: No infiltrative changes. BONE MARROW EDEMA: None FRACTURE: None BONE TUMOR: None BONY ALIGNMENT: Adequate DEGENERATION: No significant spurring or joint space narrowing. JOINT EFFUSION: Large joint effusion MUSCLES: Unremarkable SOFT TISSUES: Anterior subcutaneous edematous changes. POPLITEAL CYST: None ANTERIOR CRUCIATE LIGAMENT: Intact POSTERIOR CRUCIATE LIGAMENT: Intact LATERAL COMPARTMENT: LATERAL MENISCUS: Intact. LATERAL ARTICULAR CARTILAGE: Intact. No osteochondral defect. No subcuticular bone marrow edema. PROXIMAL TIBIOFIBULAR JOINT: Intact POSTERIOR LATERAL COMPARTMENT: Intact lateral collateral ligament complex. Intact biceps femoris tendon. Intact popliteus tendon. COMMON PERONEAL NERVE: Intact MEDIAL COMPARTMENT: MEDIAL MENISCUS: Transverse complex tear of the medial meniscus extends from the body to the posterior horn. Extrusion of the body of the meniscus identified. Small cyst inferior to the body of medial meniscus present. Likely related to a meniscal tear. MEDIAL ARTICULAR SURFACE: focal chondromalacia weightbearing portion medial femoral condyle and medial tibial plateau likely degenerative. POSTERIOR MEDIAL COMPARTMENT: Medial collateral ligament complex intact. The semimembranosus tendon intact. No ramp lesion of the posterior horn of medial meniscus present. PATELLOFEMORAL COMPARTMENT: PATELLOFEMORAL ARTICULAR CARTILAGE: focal chondromalacia in the middle facet likely degenerative. ANTERIOR LIGAMENTS: Patellar ligament and quadriceps tendon are intact. MR/MR knee LT wo con IMPRESSION: Complex transverse tear of the body and posterior horn of medial meniscus with extrusion of the body. Intact ACL. Intact medial meniscus. Large joint effusion. 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 Impression dictated by: Stacy Ma M.D.08/03/2024 3:44 PM Dictation Location: [place] [address] Electronically authenticated by: [id number] Y Date: 08/03/2024 15:44
== END 2024-08-03 06:43 | disposition home or self-care (01) ==
LOC: MRI 06:42
PROVIDERS: PCP Internal Medicine; Visit Provider Internal Medicine
DX: S83.242A Other tear of medial meniscus, current injury, left knee, initial encounter (principal); S83.232A Complex tear of medial meniscus, current injury, left knee, initial encounter; M25.462 Effusion, left knee
CPT/HCPCS: 73721

== ENCOUNTER 2025-02-09 21:53 | Emergency (ER) | payer OTHER, SELFPAY ==
--- OUTSIDE RECORDS SUMMARY | 2025-01-29 15:00 | XMS_ITS | Encounter Summary ---
Author Organization [facility] tem Address [id number] [address] [place] [address] Care Team Providers Care Director Case Name Role Phone Lawrence Simmons DO Primary Care Provider [phone] Reason for Visit * Reason Comments Hyperlipidemia Hypertension Encounter Details Date Type Department Care Team (Late st Contact Info) Description 01/29/2025 3:00 PM EDT Office Visit [facility] Internal Medicine - Family Medicine [address] [place] [phone] Lawrence Simmons DO [address] [place] [address] Essential hypertension (Primary Dx); EMIL (obstructive sleep apnea); Hyperlipidemia, unspecified hyperlipidemia type; Family history of colon cancer requiring screening colonoscopy Social History Tobacco Use Types Packs/Day Years Used Date Smoking Tobacco: Never Smokeless Tobacco: Never Alcohol Use Standard Drinks/Week Comments Yes 3 (1 standard drink = 0.6 oz pur e alcohol) Overall Financial Resource Strain (CARDIA) Answe r Date Recorded How hard is it for you to pa y for the very basics like food, housing, medical care, and heating? Not very hard 12/26/2023 PHQ-2 Answer Date Recorded Total Score 0 01/29/2025 PRAPARE - Transportation Answer Date Re corded In the past 12 months, has l ack of transportation kept you from medical appointments or from getting medications? No 09/2023 In the past 12 months, has l ack of transportation kept you from meetings, work, or from getting things needed for daily living? No 12/26/2023 Housing Instability Answer Date Recorde d Are you worried or concerned that in the next two months you may not have stable housing that you own, rent or stay in as a part of a household? No 12/26/2023 Childcare Answer Date Recorded Childcare Unknown 11/01/2018 Employment Answer Date Recorded Employment Unknown 11/01/2018 Hunger Screening Answer Date Recorded Within the past 12 months we worried whether our food would run out before we got money to buy more. Never True 01/29/2025 Within the past 12 months th e food we bought just didn't last and we didn't have money to get more. Never True 01/29/2025 Purpose - Life Answer Date Recorded Purpose and direction in life Unknown Sex and Gender Information Value Date Recorded Sex Assigned at Not on file Legal Sex Male 11:59 AM EDT Gender Identity Not on file Sexual Orientation Not on file documented as of this encounter Last Filed Vital Signs Vital Sign Reading Time Taken Comments Blood Pressure 126/78 01/29/2025 3:10 PM EDT Pulse 62 01/29/2025 3:10 PM EDT Temperature 36.2 C (97.2 F) 01/29/2025 3:10 PM EDT Respiratory Rate 18 01/29/2025 3:10 PM EDT Oxygen Saturation 98% 01/29/2025 3:10 PM EDT Inhaled Oxygen Concentration - - Weight 127.9 kg (282 lb) 01/29/2025 3:10 PM EDT Height 175.3 cm (5' 9.02 ) 01/29/2025 3:10 PM ED T Body Mass Index 41.62 01/29/2025 3:10 PM EDT documented in this encounter Progress Notes * Lawrence Simmons, DO - 01/29/2025 3:00 PM EDT IM PROGRESS NOTE Patient - Bebeto Boles Age - 60 y.o. - 1965 ASSESSMENT & PLAN 1. Essential hypertension (Primary) -goals of treatment reviewed with the patient -home and office readings are at goal -continue current regimen of losartan, chlorthalidone and amlodipine 2. EMIL (obstructive sleep apnea) -is compliant with his CPAP mask on a nightly basis -does feel he get good, restorative sleep with ongoing use 3. Hyperlipidemia, unspecified hyperlipidemia type -currently on atorvastatin 20 mg daily -review of previous lab work showed improving triglyceride level and LDL with the higher dose of statin -continue to monitor 4. Family history of colon cancer requiring screening colonoscopy -patient 7 years from last colonoscopy -with the family history, he is due for recheck colonoscopy -patient prefers to wait until the new year to proceed. - Colonoscopy; Future Subjective CARDIOVASCULAR FOLLOW-UP This is a follow up of a pre-existing problem. Blood pressures are being checked outside the office. Frequency: weekly Readings have been normal. BP readings outside the office range from 120 - 129 mmHg systolic and 70 - 79 mmHg diastolic. The 10-year ASCVD risk score (Mei MAYNARD, et al., 2019) is: 9% Values used to calculate the score: Age: 60 years Sex: Male Is Non- : No Diabetic: No Tobacco smoker: No Systolic Blood Pressure: 126 mmHg Is BP treated: Yes HDL Cholesterol: 43 mg/dL Total Cholesterol: 178 mg/dL Patient reports following dosing instructions Physical activity: The patient does not participate in regular exercise at present. Has been limited because of recent surgery to his left knee Dietary efforts show fairly healthy diet with limited sugars and fats. CV symptoms review was negative for rapid or irregular heart rate, palpitations, syncope A review of systems was negative except for the following: General: weight gain Gastrointestinal: Found out that his sister had dysplastic colon polyps. He wonders when he is due for recheck colonoscopy. Father was diagnosed with colon cancer as well. His last colonoscopy was [id number]. Exam BP 126/78 (BP Site: Left Arm, BP Postition: Sitting, BP CUFF SIZE: M (9-13 inches)) Pulse 62 Temp 36.2 ??C (97.2 ??F) (Tympanic) Resp 18 Ht 175.3 cm (5' 9.02 ) Wt 127.9 kg (282 lb) SpO2 98% BMI 41.62 kg/m?? Physical Exam Vitals reviewed. Constitutional: General: He [...] Abdominal: Palpations: Abdomen is soft. Musculoskeletal: General: No swelling or tenderness. Right lower leg: No edema. Left lower [...] TAKE 1 TABLET BY MOUTH DAILY, Disp: 30 tablet, Rfl: 0 atorvastatin (LIPITOR) 20 mg tablet, TAKE 1 TABLET BY MOUTH EVERY MORNING, Disp: 30 tablet, Rfl: 0 chlorthalidone (HYGROTON) 25 mg tablet, TAKE 1 TABLET BY MOUTH DAILY, Disp: 30 tablet, Rfl: 0 losartan (COZAAR) 100 mg tablet, TAKE 1 TABLET BY MOUTH DAILY, Disp: 30 tablet, Rfl: 0 potassium chloride (K-TAB,KLOR-CON) 20 mEq CR tablet, TAKE 1 TABLET BY MOUTH EVERY MORNING, Disp: 90 tablet, Rfl: 1 vardenafiL (LEVITRA) 20 MG tablet, TAKE 1 TABLET BY MOUTH EVERY MORNING, Disp: 6 tablet, Rfl: 1 Lab Results No visits with results within 1 Month(s) from this visit. Latest known visit with results is: Hospital Outpatient Visit on 07/12/2024 Component Date Value Ref Range Status Cholesterol 07/12/2024 178 150 - 200 mg/dL Final Triglycerides 07/12/2024 210 (H) 27 - 150 mg/dL Final HDL Cholesterol 07/12/2024 43 >39 mg/dL Final VLDL 07/12/2024 42 (H) 0 - 30 mg/dL Final LDL (calc) 07/12/2024 93 <130 mg/dL Final Cholesterol:HDL Ratio 07/12/2024 4.1 1.0 - 5.0 Final Sodium 07/12/2024 138 134 - 146 mmol/L Final Potassium, Bld 07/12/2024 3.6 3.5 - 5.0 mmol/L Final Chloride 07/12/2024 100 98 - 109 mmol/L Final CO2 07/12/2024 29 22 - 32 mmol/L Final Anion gap 07/12/2024 9 5 - 15 mmol/L Final BUN 07/12/2024 15 5 - 23 mg/dL Final Creatinine 07/12/2024 0.96 0.60 - 1.30 mg/dL Final Glucose 07/12/2024 92 65 - 99 mg/dL Final Calcium 07/12/2024 9.3 8.5 - 10.5 mg/dL Final Total Protein 07/12/2024 7.4 6.0 - 8.0 g/dL Final Albumin 07/12/2024 4.3 3.2 - 5.3 g/dL Final Alkaline Phosphatase 07/12/2024 62 39 - 130 U/L Final AST 07/12/2024 24 0 - 41 U/L Final ALT 07/12/2024 25 0 - 40 U/L Final Total bilirubin 07/12/2024 0.6 0.3 - 1.2 mg/dL Final eGFR (CKD-EPI)non-race dependent 07/12/2024 >90 >59 ml/min/1.73sq.m Final Other Testing No results found. Lawrence Simmons DO., [facility] Office: [phone] documented in this encounter Plan of Treatment Scheduled Orders Name Type Priority Associated Diagnoses Orde r Schedule Colonoscopy GI Routine Family history of colon cancer requiring screening colonoscopy Expected: 05/27/2025, Expires: 01/29/2026 documented as of this encounter Visit Diagnoses Diagnosis Essential hypertension- Primary Unspecified essential hypertension EMIL (obstructive sleep apnea) Obstructive sleep apnea (adult) (pediatric) Hyperlipidemia, unspecified hyperlipidemia type Family history of colon cancer requiring screening colonoscopy documented in this encounter Additional Health Concerns Assessment Noted Time PHQ-9 Depression Total Score: 0 01/30/20 25 3:10 PM EDT documented as of this encounter Care Teams Director Case Relationship Specialty Start Date End Date Lawrence Simmons DO [address] [place] [address] PCP - General Internal Medicine 02/27/18 documented as of this encounter
--- OUTSIDE RECORDS SUMMARY | 2025-02-09 22:02 | XMS_ITS | Clinical Summary ---
Author Organization [facility] Healthcare Address [address] [facility] [place] [address] Care Team Providers Care Floor Mechanic Name Role Phone Lawrence Simmons MD Primary Care Provider [phone] Allergies No known active allergies Medications amLODIPine (Norvasc) 10 MG tablet Take 10 mg by mouth in the morning. 07/08/2024 Active atorvastatin (Lipitor) 20 MG tablet Take 1 tablet by mouth in the morning. 07/08/2024 Active chlorthalidone (Hygroton) 25 MG tablet Take 25 mg by mouth in the morning. 07/08/2024 Active losartan (Cozaar) 100 MG tablet Take 100 mg by mouth in the morning. 07/08/2024 Active potassium chloride CR (K-Tab) 20 MEQ ER tablet Take 20 mEq by mouth in the morning. 08/11/2024 Active vardenafil (Levitra) 20 MG tablet Take 20 mg by mouth in the morning. 08/14/2024 Active Active Problems No known active problems Encounters Date Type Department Care Team Description 12/20/2024 2:30 PM EDT Office Visit [facility] [address] [facility] [address] [place] [address] Kin Castellano PA S/P left knee arthroscopy (Primary Dx) 12/20/2024 Bamboo flowsheet [facility] [address] [place] [phone] Kin Castellano PA 12/20/2024 Travel 12/14/2024 Travel 11/22/2024 1:15 PM EDT Office Visit [facility] [address] [place] [phone] Kin Castellano PA S/P left knee arthroscopy (Primary Dx) 11/22/2024 Bamboo flowsheet [facility] [address] [place] [address] Kin Castellano PA 11/22/2024 Travel 11/15/2024 Travel 11/15/2024 Telephone [facility] [address] [place] [address] Chet Epstein, EXTRUSION PRESS ADJUSTER from Last 3 Months Family History Medical History Relation Name Comments Colon cancer Father Hypertension Father Cancer Mother Diabetes Mother Hypertension Mother Relation Name Status Comments Father Alive Mother Social History Tobacco Use Types Packs/Day Years Used Date Smoking Tobacco: Never Smokeless Tobacco: Never Tobacco Cessation:Counseling Given: Not Answered Alcohol Use Standard Drinks/Week Comments Yes 0 (1 standard drink = 0.6 oz pur e alcohol) Sex and Gender Information Value Date Recorded Sex Assigned at Not on file Legal Sex Male 6:40 PM EDT Gender Identity Not on file Sexual Orientation Not on file Last Filed Vital Signs Vital Sign Reading Time Taken Comments Blood Pressure 132/86 09/25/2024 3:58 PM EDT Pulse 62 09/25/2024 3:58 PM EDT Temperature - - Respiratory Rate 16 09/26/2023 3:39 PM EDT Oxygen Saturation 96% 09/25/2024 3:58 PM EDT Inhaled Oxygen Concentration - - Weight 120 kg (265 lb) 10/22/2024 2:56 PM EDT Height 175.3 cm (5' 9 ) 10/22/2024 2:56 PM EDT Body Mass Index 39.13 10/22/2024 2:56 PM EDT Plan of Treatment Not on file Insurance [employer] Care Teams Floor Mechanic Relationship Specialty Start Date End Date Lawrence Simmons MD [address] [place] [address] PCP - General Internal Medicine 09/25/24
--- OUTSIDE RECORDS SUMMARY | 2025-02-09 22:02 | XMS_ITS | Encounter Summary ---
Author Organization [employer] tem Address [id number] [address] [place] [address] Care Team Providers Care Sample Maker Original Name Role Phone Lawrence Simmons Primary Care Provider [phone] Encounter Details Date Type Department Care Team (Late st Contact Info) Description 01/05/2024 Orders Only [facility] Internal Medicine - Family Medicine [address] [place] [phone] Richy Jay CMA Essential hypertension Social History Tobacco Use Types Packs/Day Years [...] PHQ-2 Answer Date Recorded Total Score 0 05/25/2023 PRAPARE - Transportation Answer Date Re corded [...] got money to buy more. Never True 12/26/2023 Within the past 12 months th e food we bought just didn't last and we didn't have money to get more. Never True 12/26/2023 Purpose - Life Answer Date Recorded Purpose and direction in life Unknown Sex and Gender Information Value Date Recorded Sex Assigned at Not on file Legal Sex Male 11:59 AM EDT Gender Identity Not on file Sexual Orientation Not on file documented as of this encounter Plan of Treatment Not on file documented as of this encounter Procedures Procedure Name Priority Date/Time Associated Diagnosis Comments BASIC METABOLIC PANEL Routine 01/05/2024 9:20 AM EDT BASIC METABOLIC PANEL Routine 01/04/2024 Essential hypertension documented in this encounter Results * Basic Metabolic Panel (01/05/2024 9:20 AM EDT) Lawrence Simmons DO LAB BLOOD ORDERABLES Final Resul t * Basic Metabolic Panel (01/04/2024) External Anion Gap 9.0 MANUALLY TRANSCRIBED RESULTS External Blood Urea Nitrogen Bun 23 MANUALLY TRANSCRIBED RESULTS External Calcium Ca 9.6 MANUALLY TRANSCRIBED RESULTS External Chloride 102 MANUALLY TRANSCRIBED RESULTS External Co2 / Carbon Dioxide 29 MANUALLY TRANSCRIBED RESULTS External Creatinine 1.40 MANUALLY TRANSCRIBED RESULTS External Gfr Non Amer 59 MANUALLY TRANSCRIBED RESULTS External Glucose Fasting Or Random (Fbs) 122 MANUALLY TRANSCRIBED RESULTS External Potassium K 3.6 MANUALLY TRANSCRIBED RESULTS External Sodium Na 140 MANUALLY TRANSCRIBED RESULTS 01/04/2024 Lawrence Simmons DO LAB BLOOD ORDERABLES Final Resul t MANUALLY TRANSCRIBED RESULTS documented in this encounter Visit Diagnoses Diagnosis Essential hypertension Unspecified essential hypertension documented in this encounter Additional Health Concerns Assessment Noted Time PHQ-9 Depression Total Score: 0 05/25/19 24 4:15 PM EST documented as of this encounter Care Teams Sample Maker Original Relationship Specialty Start Date End Date Lawrence Simmons DO [address] [place] [address] PCP - General Internal Medicine 02/27/18 documented as of this encounter
--- OUTSIDE RECORDS SUMMARY | 2025-02-09 22:02 | XMS_ITS | Encounter Summary ---
Author Organization [employer] Address [id number] [address] [place] [address] Care Team Providers Care Sales And Service Advisor Name Role Phone Lawrence Simmons Primary Care Provider [phone] Encounter Details Date Type Department Care Team (Late st Contact Info) Description 01/19/2022 Orders Only [facility] Internal Medicine - Family Medicine [address] [place] [phone] External, Scanning Provider Social History Tobacco Use Types Packs/Day Years Used Date Smoking Tobacco: Never Smokeless Tobacco: Never Alcohol Use Standard Drinks/Week Comments Yes 3 (1 standard drink = 0.6 oz pur e alcohol) Childcare Answer Date Recorded Childcare Unknown 11/01/2018 Employment Answer Date Recorded Employment Unknown 11/01/2018 Purpose - Life Answer Date Recorded Purpose [...] Procedure Name Priority Date/Time Associated Diagnosis Comments LIPID PROFILE Routine 06/16/2021 documented in this encounter Results * (ABNORMAL) Lipid profile (06/16/2021) External Cholesterol 189 < - 200 MANUALLY TRANSCRIBED RESULTS External Cholesterol:Hdl 4.2 < - 5.0 MANUALLY TRANSCRIBED RESULTS External Hdl Cholesterol 45 >40 MANUALLY TRANSCRIBED RESULTS External Ldl (Calc) 107(A) < - 100 MANUALLY TRANSCRIBED RESULTS External Triglycerides 243(A) < - 150 MANUALLY TRANSCRIBED RESULTS 06/16/2021 us Scanning Provider External LAB BLOOD ORDERABLES Final Result MANUALLY TRANSCRIBED RESULTS documented in this encounter Visit Diagnoses Not on filedocumented in this encounter Care Teams Sales And Service Advisor Relationship Specialty Start Date End Date Lawrence Simmons DO [facility] [address] [place] [id number] PCP - General Internal Medicine 02/27/18 documented as of this encounter
--- OUTSIDE RECORDS SUMMARY | 2025-02-09 22:02 | XMS_ITS | Encounter Summary ---
Author Organization [facility] Address [id number] [address] [place] [address] Care Team Providers Care Photoengraving Helper Name Role Phone Lawrence Simmons DO Primary Care Provider [phone] Encounter Details Date Type Department Care Team (Late st Contact Info) Description 02/24/2023 Documentation [facility] Internal Medicine - Family Medicine [address] [place] [phone] Dory Pritchett CMA Social History Tobacco Use Types Packs/Day Years Used Date Smoking Tobacco: Never Smokeless Tobacco: Never Alcohol Use Standard Drinks/Week Comments Yes 3 (1 standard drink = 0.6 oz pur e alcohol) PHQ-2 Answer Date Recorded Total Score 0 08/16/2022 Childcare Answer Date Recorded Childcare Unknown 11/01/2018 [...] on file documented as of this encounter Visit Diagnoses Not on filedocumented in this encounter Additional Health Concerns Assessment Noted Time PHQ-9 Depression Total Score: 0 08/17/19 23 4:14 PM EDT documented as of this encounter Care Teams Photoengraving Helper Relationship Specialty Start Date End Date Lawrence Simmons DO [address] [place] [address] PCP - General Internal Medicine 02/27/18 documented as of this encounter
--- OUTSIDE RECORDS SUMMARY | 2025-02-09 22:02 | XMS_ITS | Encounter Summary ---
Author Organization [facility] Address [facility]-[id number] [address] [place] [address] Care Team Providers Care Tourist Adviser Name Role Phone Lawrence Simmons DO Primary Care Provider [phone] Encounter Details Date Type Department Care Team (Late st Contact Info) Description 06/08/2023 Orders Only [facility] Internal Medicine - Family Medicine [address] [place] [phone] Lawrence Simmons DO [address] [place] [address] EMIL (obstructive sleep apnea) (Primary Dx) Social History Tobacco Use Types Packs/Day Years Used Date Smoking Tobacco: Never Smokeless Tobacco: Never Alcohol Use Standard Drinks/Week Comments Yes 3 (1 standard drink = 0.6 oz pur e alcohol) PHQ-2 Answer Date Recorded Total Score 0 05/25/2023 Childcare Answer Date Recorded Childcare Unknown 11/01/2018 Employment Answer Date Recorded Employment Unknown 11/01/2018 Hunger Screening Answer Date Recorded Within the past 12 months we worried whether our food would run out before we got money to buy more. Never True 05/25/2023 Within the past 12 months th e food we bought just didn't last and we didn't have money to get more. Never True 05/25/2023 Purpose - Life Answer Date Recorded Purpose and direction in life Unknown Sex and Gender Information Value Date Recorded Sex Assigned at Not on file Legal Sex Male 11:59 AM EDT Gender Identity Not on file Sexual Orientation Not on file documented as of this encounter Plan of Treatment Not on file documented as of this encounter Visit Diagnoses Diagnosis EMIL (obstructive sleep apnea)- Primary Obstructive sleep apnea (adult) (pediatric) documented in this encounter Additional Health Concerns Assessment Noted Time PHQ-9 Depression Total Score: 0 05/25/19 24 4:15 PM EST documented as of this encounter Care Teams Tourist Adviser Relationship Specialty Start Date End Date Lawrence Simmons DO [address] [place] [address] PCP - General Internal Medicine 02/27/18 documented as of this encounter
--- OUTSIDE RECORDS SUMMARY | 2025-02-09 22:02 | XMS_ITS | Encounter Summary ---
Author Organization [facility] Address [id number] [address] [place] [address] Care Team Providers Care Deputy Juvenile Officer Name Role Phone Lawrence Simmons DO Primary Care Provider [phone] Encounter Details Date Type Department Care Team (Late st Contact Info) Description 06/06/2023 Orders Only [facility] Internal Medicine - Family Medicine [address] [place] [phone] Lawrence Simmons DO [address] [place] [address] Social History Tobacco Use Types Packs/Day Years [...] on file documented as of this encounter Progress Notes * Lawrence Simmons DO - 06/06/2023 2:04 PM EST His home sleep test is consistent with severe obstructive sleep apnea. I recommend a CPAP titration test in the sleep lab to find the best treatment settings for him. I can set this up if he is willing. Normally is done at the [facility] * Devi Arteaga CMA - 06/06/2023 2:04 PM EST Spoke with the patient and he said go ahead and send the order over to the [facility] and hegin do that next. * Lawrence Simmons DO - 06/06/2023 2:04 PM EST Home sleep study AHI 40 O2 desaturation 43 min down to 76% * Lawrence Simmons DO - 06/06/2023 2:04 PM EST CPAP titration ordered at [facility] * Lawrence Simmons DO - 06/06/2023 2:04 PM EST CPAP titration ordered [facility] documented in this encounter Plan of Treatment Not on file documented as of this encounter Procedures Procedure Name Priority Date/Time Associated Diagnosis Comments HOME SLEEP STUDY Routine 06/29/2023 documented in this encounter Results * Home sleep study (06/29/2023) Lawrence Simmons DO SLEEP CENTER ORDERABLES Final Re sult MANUALLY TRANSCRIBED RESULTS documented in this encounter Visit Diagnoses Not on filedocumented in this encounter Additional Health Concerns Assessment Noted Time PHQ-9 Depression Total Score: 0 05/25/19 24 4:15 PM EST documented as of this encounter Care Teams Deputy Juvenile Officer Relationship Specialty Start Date End Date Lawrence Simmons DO [address] [place] [address] PCP - General Internal Medicine 02/27/18 documented as of this encounter
--- OUTSIDE RECORDS SUMMARY | 2025-02-09 22:03 | XMS_ITS | Encounter Summary ---
Author Organization [facility] Address [address] [place] [address] Care Team Providers Care Home Lending Officer Name Role Phone Lawrence Simmons MD Primary Care Provider [phone] Encounter Details Date Type Department Care Team (Late st Contact Info) Description 08/08/2024 Orders Only [facility] [address] [facility] [address] [place] [phone] Lawrence Simmons MD [address] [place], [place] [phone] Social History Tobacco Use Types Packs/Day Years Used Date Smoking Tobacco: Never Assessed Sex and Gender Information Value Date Recorded Sex Assigned at Not on file Legal Sex Male 6:40 PM EDT Gender Identity Not on file Sexual Orientation Not on file documented as of this encounter Plan of Treatment Not on file documented as of this encounter Procedures Procedure Name Priority Date/Time Associated Diagnosis Comments MR KNEE LEFT WO IV CONTRAST Routine 08/08/2024 8:34 AM EDT documented in this encounter Results * MR knee left wo IV contrast (08/08/2024 8:34 AM EDT) Anatomical Region Laterality Modality Lower Extremities, Knee Left Magnetic Resonance Lawrence Simmons MD IMG MRI PROCEDURES Final Result documented in this encounter Visit Diagnoses Not on filedocumented in this encounter Care Teams Home Lending Officer Relationship Specialty Start Date End Date Lawrence Simmons MD [address] [place] [address] PCP - General Internal Medicine 09/25/24 documented as of this encounter
--- OUTSIDE RECORDS SUMMARY | 2025-02-09 22:03 | XMS_ITS | Encounter Summary ---
Author Organization [employer] tem Address [facility] [id number] [address] [place] [address] Care Team Providers Care Inspector And Sorter Name Role Phone Lawrence Simmons DO Primary Care Provider [phone] Reason for Referral * Consultation (Routine) - Authorized Specialty Diagnoses / Procedures Referred By Contact Referred To Contact Orthopaedic Surgery / MED-SURG/ORTHOPEDICS Diagnoses Acute medial meniscus tear of left knee, subsequent encounter Lawrence Simmons DO [address] [place] [address] Phone: tel: fax: Domenic Middleton Jr., [address] [facility] [address] [place] [address] Phone: tel: fax: Referral ID Status Reason Start Date Expiration Date Visits Requested Visits Authorized [id number] Authorized Specialty Services Required 08/07/2024 08/07/2025 4 4 Encounter Details Date Type Department Care Team (Late st Contact Info) Description 08/07/2024 Orders Only [facility] - Family Medicine [address] [place] [id number] Lawrence Simmons DO [address] [place] [address] Acute medial meniscus tear of left knee, subsequent encounter (Primary Dx) Social History Tobacco Use Types [...] PHQ-2 Answer Date Recorded Total Score 0 07/12/2024 PRAPARE - Transportation Answer Date Re corded [...] got money to buy more. Never True 07/12/2024 Within the past 12 months th e food we bought just didn't last and we didn't have money to get more. Never True 07/12/2024 Purpose - Life Answer Date Recorded Purpose and direction in life Unknown Sex and Gender Information Value Date Recorded Sex Assigned at Not on file Legal Sex Male 11:59 AM EDT Gender Identity Not on file Sexual Orientation Not on file documented as of this encounter Plan of Treatment Scheduled Referrals Name Type Priority Associated Diagnoses Order Schedule Ambulatory referral to Orthopedic Surgery ([facility]) Outpatient Referral Routine Acute medial meniscus tear of left knee, subsequent encounter 1 Occurrences starting 08/07/2024 until 08/07/2025 documented as of this encounter Visit Diagnoses Diagnosis Acute medial meniscus tear of left knee, subsequent encounter- Primary documented in this encounter Additional Health Concerns Assessment Noted Time PHQ-9 Depression Total Score: 0 07/12/19 25 3:22 PM EST documented as of this encounter Care Teams Inspector And Sorter Relationship Specialty Start Date End Date Lawrence Simmons DO [address] [place] [address] PCP - General Internal Medicine 02/27/18 documented as of this encounter
--- OUTSIDE RECORDS SUMMARY | 2025-02-09 22:03 | XMS_ITS | Clinical Summary ---
Author Organization [facility] tem Address [facility] [id number] [address] [place] [address] Care Team Providers Care Bolt Sawyer Name Role Phone ElviaLawrence clayton Primary Care Provider [phone] Allergies No known active allergies Medications potassium chloride (K-TAB,KLOR-CON) 20 mEq CR tabletIndications :Essential hypertension TAKE 1 TABLET BY MOUTH EVERY MORNING 90 tablet 1 5 Active vardenafiL (LEVITRA) 20 MG tabletIndications :Other male erectile dysfunction TAKE 1 TABLET BY MOUTH EVERY MORNING 6 tablet 1 5 Active losartan (COZAAR) 100 mg tabletIndications :Essential (primary) hypertension TAKE 1 TABLET BY MOUTH DAILY 30 tablet 5 Active chlorthalidone (HYGROTON) 25 mg tabletIndications :Essential (primary) hypertension TAKE 1 TABLET BY MOUTH DAILY 30 tablet 5 Active amLODIPine (NORVASC) 10 mg tabletIndications :Essential (primary) hypertension TAKE 1 TABLET BY MOUTH DAILY 30 tablet 5 Active atorvastatin (LIPITOR) 20 mg tabletIndications :Hyperlipidemia, unspecified TAKE 1 TABLET BY MOUTH EVERY MORNING 30 tablet 5 Active Active Problems Problem Noted Date Diagnosed Date External hemorrhoids 2022 Hyperlipidemia 2022 Diverticulosis of intestine without bleeding 02/2018 Diverticula of intestine 03/01/2018 Colon cancer screening 02/10/2018 Essential hypertension 01/16/2018 Cervical disc disorder 05/23/2011 Encounters Date Type Department Care Team Description 01/29/2025 3:00 PM EDT Office Visit [facility] - Family Medicine [address] [place] [address] Lawrence Simmons, Essential hypertension (Primary Dx); EMIL (obstructive sleep apnea); Hyperlipidemia, unspecified hyperlipidemia type; Family history of colon cancer requiring screening colonoscopy 01/29/2025 Travel 01/08/2025 Refill [facility] [address] [place] [address] Lawrence Simmons, Essential (primary) hypertension; Hyperlipidemia, unspecified from Last 3 Months Immunizations Immunization Administration Dates Next Due H1N1 Inj Preservative Free 04/15/2009 Influenza (IM) Preservative Free 07/12/2024,01/2015 Influenza, Im Trivalent Preservative 02/26/2021, 02/21/2016 Influenza, Injectable, quadrivalent (PF) 020 Influenza, Intradermal (Pf) 03/06/2020 Tdap 08/16/2022 Zoster Vaccine Recombinant 12/05/2018,06/08/2018 ,02/20/2018 Family History Medical History Relation Name Comments Colon cancer Father Heart disease Father Hypertension Father Hypertension Maternal Grandfather Diabetes Maternal Grandmother Diabetes Mother Heart failure Mother Hypertension Paternal Grandfather Colon polyps Sister Diabetes Sister Relation Name Status Comments Father Maternal Grandfather Maternal Grandmother Mother Paternal Grandfather Sister Social History Tobacco Use Types Packs/Day Years Used Date Smoking Tobacco: Never Smokeless Tobacco: Never Tobacco Cessation:Counseling Given: Not Answered Alcohol Use Standard Drinks/Week Comments Yes 3 [...] Mass Index 41.62 01/29/2025 3:10 PM EDT Plan of Treatment Health Maintenance Due Date Last Done Comments Adult BMI Follow Up Plan 01/28/1984 COVID-19 Vaccine (2024-2 6 season) 2025 12/05/2021, 04/12/2021, 09/01/2020, Additional history exists Influenza Vaccine 01/21/2025 07/12/2024, , 03/06/2020, Additional history exists Adult BMI Screening 01/29/2026 01/29/2025 Depression Screening 01/29/2026 01/29/2025 Tobacco Screening 01/29/2026 01/29/2025 DTaP,Tdap and Td Vaccines (2 - Td or Tdap) 08/16/2032 08/16/2022 Zoster (Shingles) Vaccine Completed 2018, 06/08/2018, 02/20/2018 Medical Devices Not on file Insurance Care Teams Bolt Sawyer Relationship Specialty Start Date End Date Lawrence Simmons DO [address] [place] [address] PCP - General Internal Medicine 02/27/18
--- OUTSIDE RECORDS SUMMARY | 2025-02-09 22:03 | XMS_ITS | Encounter Summary ---
Author Organization [facility] [employer] s tem Address [id number] [address] [place] [address] Care Team Providers Care Yarn Weigher Name Role Phone Lawrence Simmons DO Primary Care Provider [phone] Encounter Details Date Type Department Care Team (Late st Contact Info) Description 05/27/2023 Orders Only [facility] - Family Medicine [address] [place] [id number] Lawrence Simmons DO [address] [place] [address] Social History Tobacco Use Types Packs/Day Years [...] documented as of this encounter Care Teams Yarn Weigher Relationship Specialty Start Date End Date Lawrence Simmons DO [address] [place] [address] PCP - General Internal Medicine 02/27/18 documented as of this encounter
--- OUTSIDE RECORDS SUMMARY | 2025-02-09 22:03 | XMS_ITS | Encounter Summary ---
Author Organization [employer] s tem Address [facility] [id number] [address] [place] [address] Care Team Providers Care Oral Hygienist Name Role Phone Lawrence Simmosn Primary Care Provider [phone] Encounter Details Date Type Department Care Team (Latest Contact Info) Description 01/29/2025 Travel Social History Tobacco Use Types Packs/Day Years [...] documented as of this encounter Care Teams Oral Hygienist Relationship Specialty Start Date End Date Lawrence Simmons DO [address] [place] [address] PCP - General Internal Medicine 02/27/18 documented as of this encounter
--- OUTSIDE RECORDS SUMMARY | 2025-02-09 22:03 | XMS_ITS | CCD ---
Author Organization [facility] CliniSymt Care Team Providers Care Senior Clinician Name Role Phone DR RUDI VELEZ Attending Unavailable YUHAS, DR GRIJALVA Consulting Unavailable ROSIE, DR GRIJALVA Admitting Unavailable Rudi Velez DO Primary Care Provider RUDI VELEZ Referring Unavailable RUDI VELEZ Primary Care Unavailable Rudi Velez DO Primary Care Provider Rudi Velez MD Primary Care Provider [phone] RUDI VELEZ Primary Care Unavailable BRENDA MIDDLETON Attending Unavailable BRENDA MIDDLETON Admitting Unavailable Surendra Silva Unavailable BRENDA MIDDLETON Attending Unavailable BRENDA MIDDLETON Admitting Unavailable RUDI VELEZ Primary Care Unavailable LISA SANTIAGO Attending Unavailable JR. SAULO, BRENDA Quinones Attending Unavaila RUDI Donald Referring Unavailable JR. SAULO, BRENDA Quinones Referring Unavaila DAV Osman Attending Unavailable KAREN CASTELLANO Attending Unavailable KAREN CASTELLANO Attending Unavailable RUDI VELEZ Attending Unavailable RUDI VELEZ Referring Unavailable RUDI VELEZ Primary Care Unavailable RUDI VELEZ Attending Unavailable RUDI VELEZ Referring Unavailable RUDI VELEZ Primary Care Unavailable Allergies Allergy Classification Reported Allergen(s) Allergy Type Date of Onset Reaction(s) Facility (1 source) No Known Medication Allergies; Translations: [No Known Medication Allergies] Propensity to adverse reactions to drug (disorder) [facility] Repository Medications Current Medications Medication Drug Class(es) Dates Sig (Normalized) Sig (Original) acetaminophen 325 mg / HYDROcodone bitartrate 5 mg oral tablet (1 source) Opioid Agonist Start: 11-08-2024 End: 11-11-2024 take 1 tablet by mouth every six hours for pain HYDROcodone-acetam inophen (Bruner) 5-325 MG tablet Indications: Acute medial meniscus tear, left, initial encounter Take 1 tablet by mouth every 6 (six) hours if needed for severe pain for up to 3 days 12 tablet 11/08/2024 11/11/2024 Active amLODIPine 10 mg oral tablet (20 sources) Dihydropyridine Calcium Channel Amanda Start: 01-11-2023 End: 01-08-2025 take 1 tablet by mouth once daily amLODIPine (NORVASC) 10 mg tablet Indications: Essential (primary) hypertension TAKE 1 TABLET BY MOUTH DAILY 30 tablet 01/08/2025 Active atorvastatin 20 mg oral tablet (20 sources) HMG-CoA Reductase Inhibitor Start: 02-09-2023 End: 01-08-2025 take 1 tablet by mouth once daily in the morning atorvastatin (LIPITOR) 20 mg tablet Indications: Hyperlipidemia, unspecified TAKE 1 TABLET BY MOUTH EVERY MORNING 30 tablet 01/08/2025 Active chlorthalidone 25 mg oral tablet (20 sources) Thiazide-like Diuretic Start: 01-11-2023 End: 01-08-2025 take 1 tablet by mouth once daily chlorthalidone (HYGROTON) 25 mg tablet Indications: Essential (primary) hypertension TAKE 1 TABLET BY MOUTH DAILY 30 tablet 01/08/2025 Active losartan potassium 100 mg oral tablet (20 sources) Angiotensin 2 Receptor Amanda Start: 01-11-2023 End: 01-08-2025 take 1 tablet by mouth once daily losartan (COZAAR) 100 mg tablet Indications: Essential (primary) hypertension TAKE 1 TABLET BY MOUTH DAILY 30 tablet 01/08/2025 Active potassium chloride 20 meq extended release oral tablet (20 sources) Start: 05-26-2023 End: 08-11-2024 potassium chloride (K-TAB,KLOR-CON) 20 mEq CR tablet Indications: Essential hypertension TAKE 1 TABLET BY MOUTH EVERY MORNING 90 tablet 1 08/11/2024 Active vardenafil 20 mg oral tablet (20 sources) Phosphodiesterase 5 Inhibitor Start: 12-12-2023 End: 08-14-2024 take 1 tablet by mouth once daily in the morning vardenafiL (LEVITRA) 20 MG tablet Indications: Other male erectile dysfunction TAKE 1 TABLET BY MOUTH EVERY MORNING 6 tablet 1 08/14/2024 Active Start: 09-04-2023 take 1 tablet by khurram once daily as needed vardenafiL (LEVITRA) 20 [...] Active Problems Problem Classification Problem Date Documented Date Episodic/Chronic Disorders of lipid metabolism (20 sources) Hyperlipidemia, unspecified; Translations: [Hyperlipidemia] Onset: 2022 Chronic Diverticulosis and diverticulitis (20 sources) Diverticula of intestine; Translations: [Diverticulosis of intestine, part unspecified, without perforation or abscess without bleeding] Onset: 03-01-2018 03-01-2018 Chronic Essential hypertension (20 sources) Essential hypertension; Translations: [Essential (primary) hypertension] Onset: 01-16-2018 05-25-2023 Chronic Other lower respiratory disease (2 sources) Hypoxia; Translations: [Hypoxemia] 09-26-2024 Episodic Other lower respiratory disease (2 sources) Snoring; Translations: [Snoring] 09-26-2024 Episodic Other male genital disorders (7 sources) Other male erectile dysfunction; Translations: [Impotence of organic origin] 10-04-2023 Chronic Other non-traumatic joint disorders (3 sources) Pain in left knee; Translations: [Pain in joint, lower leg] Onset: 11-08-2024 09-25-2024 Episodic Other nutritional; endocrine; and metabolic disorders (1 source) Severe obesity; Translations: [Class 3 severe obesity due to excess calories with serious comorbidity and body mass index (BMI) of 40.0 to 44.9 in adult ([facility])] 07-12-2024 Chronic Other nutritional; endocrine; and metabolic disorders (1 source) Morbid (severe) obesity due to excess calories; Translations: [Morbid (severe) obesity due to excess calories] Onset: 07-12-2024 Chronic Other nutritional; endocrine; and metabolic disorders (1 source) Body mass index (BMI) 40.0-44.9, adult; Translations: [Body mass index (BMI) 40.0-44.9, adult] Onset: 07-12-2024 Chronic Residual codes; unclassified (6 sources) Obstructive sleep apnea syndrome; Translations: [Obstructive sleep apnea (adult) (pediatric)] 05-25-2023 Chronic Residual codes; unclassified (2 sources) Hypersomnia; Translations: [Hypersomnia, unspecified] 09-26-2024 Chronic Residual codes; unclassified (1 source) Obstructive sleep apnea (adult) (pediatric); Translations: [Obstructive sleep apnea (adult) (pediatric)] Onset: 07-12-2024 Chronic Residual codes; unclassified (2 sources) Sleep deprivation; Translations: [Sleep deprivation] 09-26-2024 Episodic Residual codes; unclassified (4 sources) History of arthroscopy of knee joint; Translations: [Other specified postprocedural states] 11-21-2024 Episodic Residual codes; unclassified (1 source) Family history of cancer of colon; Translations: [Family history of malignant neoplasm of digestive organs] 01-29-2025 Episodic Spondylosis; intervertebral disc disorders; other back problems (20 sources) Cervical disc disorder; Translations: [Cervical disc disorder, unspecified, unspecified cervical region] Onset: 05-23-2011 2022 Chronic Unclassified (1 source) Obesity, class 3; Translations: [Obesity, class 3] Onset: 07-12-2024 Unclassified (1 source) Annual Exam Onset: 07-12-2024 Past or Other Problems Problem Classification Problem Date Documented Date Episodic/Chronic Hemorrhoids (20 sources) External hemorrhoids; Translations: [Residual hemorrhoidal skin tags] Onset: 2022 2022 Episodic Immunizations and screening for infectious disease (1 source) Encounter for immunization; Translations: [Encounter for immunization] Onset: 07-12-2024 Episodic Joint disorders and dislocations; trauma-related (7 sources) Tear of lateral meniscus of knee; Translations: [Other tear of lateral meniscus, current injury, left knee, initial encounter] Onset: 07-12-2024 01-02-2024 Episodic Mood disorders (20 sources) Mood disorders Onset: 05-25-2023 Resolved: 01-29-2025 05-25-2023 Other screening for suspected conditions (not mental disorders or infectious disease) (20 sources) Patient encounter status; Translations: [Encounter for screening for malignant neoplasm of prostate] Onset: 02-10-2018 05-25-2023 Episodic Unclassified (1 source) Acute tear of medial meniscus of left knee 07-12-2024 Unclassified (2 sources) Preprocedural examination done 10-22-2024 Results Test Name Value Interpretation Reference Range Facility Coding Summaryon 12-18-2024 Coding Summary HTMLBase 64 JwsubabxFVb0uKx+PGhlY WQ+SL1FFNPqV15tkYJctM 2qH5QSLYqGHjtlJVUFJXb NEvSxthCaAO7baLJqUCRo IC8+YN2zVXAzMwfzgHTei 9W7jGE4Y50kki8jLSbmnQ C1KEXxXgPlfwqcp2incLx 6IDcuNmluOyBt IMAfdI13BHA2vW89Fp11u KHeiKYdk6kgpKj2LwGrXC XrXYS2cFxoIWdcg3LoZCL yI35qsBRyh3R8 ACBbtDalqQVcPxRemPF6m O8eXXwiegvui5zelkadEz j7zk46zRQzp7G1rJO7O2X atuQ7AJDngPNn KzqgtFSNvA3ohevqa7ucz rwyAvJqSFDnNFp7OXu8OB GxwVebXiVfWT31EUV1PIP ynwYoW7AdADWy iIfrPkK2t6W3Wz1DX5SJV iyaD3AAFZRBXSyniWX+PC 92ps18V9TqIrwkPvr8BWB yAVI8jSQ4yM9g CYHzSKdpe4F0zVZ4Q3Apb oAabw1eq8btMLEnWEfbF4 0npKBzl8U3HJUedMX3PIW dvElfIxDbcO15 Oyc+BVIqxFkac8IyRfhtr 5dux0fuxDr7OiidFCToiy HgsBcwNGZ5c6YtMb8bNGM scWF0uUP4lR7k BoFxSxL8ZZfvO579TkFkr IHzYqiuK07nV5XtxBN+PH WoBgp0QNJudMlhIH9mU3D hZGRpbmctbGVm xUuaMM3bWHBswyojMDUtm J6fTNChY9y8UaArNqX8YO vzB8DmQPOjmpeeDy76sP6 cIyHeAmD8IPak G4PoqkQ0QIZejURiQTrvR MP9U03hz9V0AWHgGJStAX R5hIK4uH1cwWmecpwqhVZ mdDsgdmVydGlj NVbtLWuzA016FEDjwAekK kNvZGluZyBEYXRlOiAgMD cvMjkvMjAyNTwvdGQ+PHR xHCC3fKolIKOv yJXjETftQt7fbSjitPmsN F7vGCMreiuqKEZpyN7gFT YkzHRciYcdHP5vTOInkwa om606DhUiEJK6 PYVtyJChS2EmoN9tCuNlM MIkTVMaI0OfcVEpVSmkH4 17THbxKzK8HTWkwkZqE3S sLWFsaWduOiB0 m1D8Fx8Qt4BxhuhkM3Aei XVrUpTbHeniFMo4H7JkCr wvdHI+OW26GBHxWM02RVi 3TRY5jAfhWWvb LTYyP9WqxK0kQhBfHKRrZ GRkOyc+PHRhYmxlIHdpZH RoPScxMDAlJyBzdHlsZT0 uCy1kAPYaLCKy wZanbBQvJqMwc5coLNJwD JxsAR6ilPjeP9WoePF2VV Gnc9p3Xz22F57mY1XuoYY +GDLpqWA1kNK1 jC0aSeHoXqK0QShnD901D fUhsCVyTmjup2oef2giuW i4MlA6ACDmotGzqPqaOFB 2a7PdVx08D46b IHdpZHRoPSIxNSUiIHZhb Bimoy9npW8dHl3+PGNvbC H0rRY4aE2fApTsDqS8NDr tI090EuVmjYAs Oukwr2zng7wwpVg7FhDeQ CAetvCfaDvsFBN6c7NdDs 61K5WwdGchm1OiQvb4aw0 8gYQtq4S6mHX5 E5FhTCFpxzffoTSjtEfoE T3kHYYkvzqeKYHnuL7zPM NtH1f1GsBpXdY4BDwhN2C ibhJ3XMNpwXGi TLXunXILaB8rtquai1wem gpjHdGxYGHiRDy2PWt5WI CnjBskHaWiJAN1WhE4GJP 7tHAhqP5wxAmp rghhnG4eQom+RQZ7vBQil KUOPX0vHcqvsQR+PHRkIH Z0rAiqPZqcPPDfsQ1rFVX aK3v5IpJhYmA7 CReyO2AfsfZ6MRAoxZFvK RIxcKLTqW6lvnswu3cjmi wnVoSpPYCeZMq2AZu3YEY saWduOiBsZWZ0 CoA0EVN8wNNyqR4wcYwej ownpV5vEdi+QmlydGggRG Q5IKg0P7LeDag5NAHglTs mGP8qySGaRBpb Cr7ojRlacRtfMW8wOZQem phra117YzOiw2waTCDreJ NzKKyjHDT0P31jg2N2PCE eVOSpLWL5kIB9 gT7jkTjstgjplADsfUsgn zMvaFavJRtwVRjdJ989QV OwyYboWlJrFBh9N6YvKpt 4VHWmqJljKN4u wFWxUXzzBq9llSdcpJllH H9wWFUurchoa165BqBxt4 puRFDgiZQfIOanIRA4L48 po3K9WDIuQRHq LKS1kIU1wO6gyPfwsgxaw GVmdDsgdmVydGljYWwtYW neD080OPSqrMbkHaGjrGy 4O6CvSgz3HYZk yEwfOV3egAPeQGbuNu2uw UvepRcvSU2sFVBqeypvs7 71MgDsj1ybPBObwOGzNGf rNNG4I43es1V2 EPDnOBMpDOV3aUW7yA9vp GlnbjogbGVmdDsgdmVydG doLIibWZbkT395PSYmyJa nPlBhdGllbnQg RZxzPLw6E6HcVibgwFV+P T01IAReDI18lLRepVDao2 yeqIh2CgHjNKBbTTG8xBb eKDckw8OuQRQy S85rbCEgr3C5DYUrfJocy XDoMmXnqZX6oA9wDGnbtg tti7puxtzbJqyae2dreo0 9pZ27R12fBTdn ZHRoPSIzMCUiIHZhbGlnb q1taZ9xEr2+AEQixAV6rA H9cT4kQDRxMpA9GBnpR47 9InRvcCIvPjxj l1jlf5yyxYv3EfS1QUWqp cZmbGhnMPZ9w3YvIp28F9 9sIHdpZHRoPSIyMCUiIHZ ybDncnz8qxI3j Ii8+DXKlpES5mNL8wZ4hO sRlIzU1FVaaH519WoWtnI BaUsdkN90tD7UdtRT+PHR oWti4HXKfoDno PQ4myCQiOLilGk6eUVL6V sGeItNdUYnfJ0AnBLTust podycxsRX5LKXoHFRucD4 0Qk2xjZaaVCRe tMYXzA4nanajr5yxwvzhV gHzIOSdJZo3VLx0ILRsnQ rlLxSuFZH9KoB0YZM7kZL ecF2mdKniscta sR5wZ3JxNNEdsuboRy21a K8rUvAfOcQ9BZcyVot+U1 FDG9hGLNJIMKJyJBpSLqX SRVkgTUlDSEFF TDwvdGQ+MEZkDXO3aIcdH UdtPQXwbE1eOWPxY1k8Nv DyDtD6LQcsS1NiDVGabah vLe87rN0vArHp MrC5SOkiL6CkcjO2KIVom HMzHNltWYW1I68cd7W0HA GuCVLwYEL3xNW7pC9thIo nbjogbGVmdDsg fpUzpZxmABhgSMvrM156J NSbjJfcCgY8MxJ0BiO4Li C1G6EgJxq1WGHdoQvzCY9 fbQSdVYrrHs9u dAmrtRjrAO0iOURyszxyV ZQpbV0yPXSabEBodUgpCX 4hSSGhcjhxv393FbEfWKN 1EZFdwBTuM0So eE3dHlZvJRLlESMxW7Mxd OLcTGiiE551HSsyHpV5XE DfrfJsP8LzMCKbmMzvNcO 2z0V6Ll28VIFM ZWFyczwvdGQ+ESDyVQS7x UthQMtnWZAgoZ9bEMWbZ2 p7BkCkEaK0BBqlF0TlOEX rlotuIg83iF2o TiAfVeB7HUnfS2EtsqX4T WEbrOCxUOrvTEE6T77an6 G4YZNpLECaLZO4aTI7rR2 hbGlnbjogbGVm dDsgdmVydGljYWwtYWxpZ 330UBDugRvaYk6PQIA0R4 HqCzr7DZGzhTeaMZ1lpMP qNQhfUa5auYhr sRwrVB4jBKUhcpfeEWAxn E9nBUXprSWqzTiaKS2dMO Elvjrye893BgLhVWN7VJG ncOWpG7VxhA3e LsRjFXAiGWAwH2YrpVQwC VljB602PJuzMiO3FGPlxu TvO2MuNMNjgDdkKbC6z4H 0Cx9WUBzgU7Hz Z9XclPolbPM+RC31rz21Y 5KvDwocWcn3UZArZVL1vS B7jA2fKDQjUOjld4D2yBQ 9R1UkuhNibl8u j1uiASTdEGtwR77dgDQnt 2E8VGRczRU0TSHgnGflKn FypK86Bhu+ZVLptVvrv8E cSyoqn6rwm6lf vZs4XnFuGNRzrpLbeNnlZ IK3p7PvLw85I90lRGadEV RoPSIzMCUiIHZhbGlnbj0 uvA4aDg2+PGNv zXK8tBP4zG7hTwYfTmP7Q YvvW690AkMmtFNnZdnhd2 jnn0eajGx8ZmSaBMQskbZ uwJfoUCA1f6Iw Hq53O7XdrXfys8XuEsa4x e72kKOag4D5oLC8M3DuZA TlculfnIFmiNosTD5rZON xnqlhTYCxsB1d YDGaT3r8ZlOqArG9QHdnM 2TivfP2EQTbbAOxQSOzwP RNfJ0ihvvzl0dywpmxHcO yAUDjEYi2JCe3 AYGkiKbqBoVsFUH0TbD6J TV3xALisH2brBfejbwtvT 9wOyc+RWx0k1nudQExKG4 kvSK2ZF00HT11 bITgz6V4sPN8W6FrFTRyn woqjtuwzOB7KBZqXEGmeN 86Zx2ejFnlBj8eLEPfNJC 8EJFwnBYhZ6En vV5lFeAgKIMwXZIoV2Iov XKaPImvW212PWqaMmZ7UC JykvOgZ3QmYUSdfUsxWzD 7u9J4Kv6ATQ08 FA19UE34zMHiq2S7nKT3F 9VoGDEdfpqpdadvvYE6ZO OlOJBuoZ21Cu2jsVheQu3 qCJGyICD7ZOGi rBNuW2WfaO8wLeLuKRUbW JHwQ5YxcBRqZQljS552IR mkSfW5DPSnbiUrX4PpPHX juPkvMaM8j1Z6 Pw3GBx82LH31YO52ySLxf 0S4qVZ8G1JoPZVpbqenql hmyPN8JGRrCQLtqT62Pb8 krEhuPe9iSZBy UVY6EWAcjXFdI3LnjK1qQ mAgIZWrNVGvY0MjwSOoEN lnV987RKvlIqI0ZOPafoY oJ9LwYZQrgFzg BmZ0p9P5Me1FDBajeke0V 3RkPjwvdHI+RL17BBCoIE 67sJQljSVcw5kfxNu6XoI mJEMlREB8rOxy PSd (more content not included)... [facility] Coding Queryon 11-14-[address] Middleton, It looks like this patient had a partial medial meniscectomy on the left knee, but the body of the note states right throughout. Can you please addend the op note to state which is correct, left or right. Thank you, Sandra Koenig HIM Coding [Electronically Signed on: 12/17/2024 13:54 EDT] BRENDA MIDDLETON DO [Verified on: 12/17/2024 13:54 EDT] BRENDA MIDDLETON DO [Transcribed on: 11/14/2024 11:49 EDT] [facility] Consent Formson 11-12-2024 Consent Forms [id number] [facility] Telemetry Stripson Telemetry Strips [id number] 0OTGTIFF [facility] Anesthesia Noteon 11-09-2024 Anesthesia Note Patient: STACY BOLES Age: 59 years Sex: MALE : 1965 Associated Diagnoses: None Author: Surendra Silva DO Postoperative Information Post Operative Note: Post Anesthesia Care Unit. Physical Examination Vital Signs 11/09/2024 15:49 EDT Temperature Temporal 35.8 DegC LOW Heart Rate Monitored 62 bpm Respiratory Rate 18 br/min Systolic Blood Pressure 125 mmHg HI Diastolic Blood Pressure 80 mmHg SpO2 98 % Oxygen Therapy Room air Pain assessment: Self-reports no pain. General: Alert and oriented. Respiratory: Respirations are non-labored. Cardiovascular: Normal rate, Regular rhythm. Review / Management Condition: Stable. Assessment Anesthetic outcome No anesthetic complications noted. Plan Transfer/ Discharge: Patient can be discharged from PACU when criteria met. Condition good. [Electronically Signed on: 11/09/2024 16:06 EDT] Surendra Silva DO [Verified on: 11/09/2024 16:06 EDT] Surendra Silva DO [facility] Anesthesia Note Patient: STACY BOLES Age: 59 years Sex: MALE : 1965 Associated Diagnoses: None Author: Surendra Silva DO Preoperative Information Anesthesia history: Patient history: No difficult intubation, No malignant hyperthermia. Family history: No malignant hyperthermia, No prior anesthesia problems. Review of Systems Constitutional: Negative. Eye Ear/Nose/Mouth/Throat Respiratory: No shortness of breath, No cough. Cardiovascular: No chest pain. Gastrointestinal: No heartburn. Endocrine: Negative. Musculoskeletal: Joint pain. Neurologic: Alert and oriented X4. Health Status Allergies: Allergic Reactions (All) No Known Medication Allergies Current medications: Home Medications (6) Active amLODIPine 10 mg oral tablet , Oral, Daily aspirin 81 mg oral delayed release tablet 81 mg = 1 tab(s), Oral, Daily atorvastatin 20 mg oral tablet 20 mg = 1 tab(s), Oral, MWF chlorthalidone 25 mg oral tablet 25 mg = 1 tab(s), Oral, Daily losartan 100 mg oral tablet 100 mg = 1 tab(s), Oral, Daily Potassium Chloride (Eqv-K-Tab) 20 mEq oral tablet, extended release 20 mEq = 1 tab(s), Oral, Daily Problem list: All Problems Hx of sleep apnea / SNOMED CT 136754069 / Confirmed Hypercholesterolemia / SNOMED CT 89371097 / Confirmed HTN (hypertension) / SNOMED CT [id number] / Confirmed Histories Family History: No family history items have been selected or recorded. Procedure history: Fusion procedure ([id number]). Comments: 10/23/2024 9:27 EDT - Jennifer Peñaloza RN Cervical C4, C5, C6 Colonoscopy ([id number]). Social History Electronic Cigarette/Vaping Assessment Electronic Cigarette Use: Never. Alcohol Assessment Use: Current. Beer, 1-2 times per week Tobacco Assessment Never tobacco user Tobacco Use:. Substance Abuse Assessment Substance use: Never. . Social & Psychosocial Habits Alcohol 10/23/2024 Alcohol Use: Current Type: Beer Frequency: 1-2 times per week Substance Use 10/23/2024 Substance use: Never Tobacco 10/23/2024 Smoking tobacco use: Never tobacco user Electronic Cigarette/Vaping 10/23/2024 Electronic Cigarette Use: Never . Physical Examination Vital Signs (last 24 hrs) Last Charted Temp Temporal 36.4 DegC (NOV 09:) Heart Rate Peripheral L 57 bpm (NOV 09 12:) Resp Rate 18 br/min (NOV 09:) SBP H 127 mmHg (NOV 09:) DBP 77 mmHg (NOV 09:) General: Alert and oriented, No acute distress. Airway: Mallampati classification: II (soft palate, fauces, uvula visible). Temporomandibular joint mobility: Good. Mouth: Teeth ( [place] ). Neck: Full range of motion. Respiratory: Lungs are clear to auscultation, Respirations are non-labored. Cardiovascular: Normal rate, Regular rhythm. Neurologic: Alert, Oriented. Review / Management Laboratory Results Plan [employer] [place] [employer] (ASA) physical status classification: Class III. Anesthetic Preoperative Plan Anesthesia: General. . Anesthetic plan, risks, benefits, and alternatives discussed with the patient and/or family. Risks discussed: nausea, vomiting, sore throat, serious complications. Patient verbalized understanding. Family/Guardian present. Informed consent was given. Consent was signed by the patient. [Electronically Signed on: 11/09/2024 14:53 EDT] Surendra Silva DO [Verified on: 11/09/2024 14:53 EDT] Surendra Silva DO Normal [facility] Inpatient Patient Summaryon 11-09-2024 Inpatient [place] [address] Patient Discharge Instructions Name: STACY BOLES : 1965 Patient Address: [address] [place] [address] Primary Care Provider: Name: RUDI VELEZ After you are discharged if you find you have any questions, please, call [phone] ext [phone] to speak to a nurse. Discharge Diagnosis: Acute pain of left knee Prescription Information: If you have been given a prescription for narcotics, seek immediate medical attention if you have any difficulty breathing or any sudden status changes such as confusion and sleepiness. If you or anyone you know is experiencing suicidal thoughts, mental health, alcohol and/or drug addiction problems; contact the [facility] 13/12 Crisis Hotline -Text 4HOVU nz 019597. If you received any narcotics, sedation, or any other medication that causes drowsiness for the next 24 hours, unless otherwise directed: ? Do not drive a car. ? Do not operate machinery such as power tools, lawn mowers, drills, sewing machines, or stoves ? Avoid alcoholic beverages and drugs for allergies, nerves, or sleep ? Do not make important personal or business decisions or sign any legal documents [facility] would like to thank you for allowing us to assist you with your healthcare needs. The following includes patient education materials and information regarding your injury/illness. STACY BOLES has been given the following list of follow-up instructions, prescriptions, and patient education materials: Follow-up Instructions With: Address: When: Karen Castellano [address] [place] [address], [address] [place] [address] Business (1) 11/22/2024 1:15 PM With: Address: When: RUDI VELEZ [address], [address] [address] Business (1) Medications During the course of your visit, your medication list was updated with the most current information. The details of those changes are reflected below: Medications to Continue That Have Not Changed Other Medications amLODIPine (amLODIPine 10 mg oral tablet) Oral (given by mouth) every day. aspirin (aspirin 81 mg oral delayed release tablet) 1 tab(s) Oral (given by mouth) every day. atorvastatin (atorvastatin 20 mg oral tablet) 1 tab(s) Oral (given by mouth) Tuesday, Tuesday and Tuesday. chlorthalidone (chlorthalidone 25 mg oral tablet) 1 tab(s) Oral (given by mouth) every day. losartan (losartan 100 mg oral tablet) 1 tab(s) Oral (given by mouth) every day. potassium chloride (Potassium Chloride (Eqv-K-Tab) 20 mEq oral tablet, extended release) 1 tab(s) Oral (given by mouth) every day. It is important to always keep an active list of medications available so that you can share with other providers and manage your medications appropriately. As an additional courtesy, we are also providing you with your final active medications list that you can keep with you. amLODIPine (amLODIPine 10 mg oral tablet) Oral (given by mouth) every day. aspirin (aspirin 81 mg oral delayed release tablet) 1 tab(s) Oral (given by mouth) every day. atorvastatin (atorvastatin 20 mg oral tablet) 1 tab(s) Oral (given by mouth) Tuesday, Tuesday and Tuesday. chlorthalidone (chlorthalidone 25 mg oral tablet) 1 tab(s) Oral (given by mouth) every day. losartan (losartan 100 mg oral tablet) 1 tab(s) Oral (given by mouth) every day. potassium chloride (Potassium Chloride (Eqv-K-Tab) 20 mEq oral tablet, extended release) 1 tab(s) Oral (given by mouth) every day. Take only the medications listed above. Contact your doctor prior to taking any medications not on this list. Diet & Activity Patient Activity Level: As Tolerated Patient Diet: Regular Patient Activity Restrictions: Discontinue Alcohol Use, No driving, No heavy lifting, Stop Smoking Comment: Patient education materials, if any, will display below Arthroscopic Surgery Discharge Instructions 1.) Keep ice on your knee after surgery. You may use the ice bag provided to you by the hospital or one from home. The ice should be applied at least 3 times a day for 20 minute intervals. 2.) Keep your knee elevated above the level of your hear. You may prop your leg up on pillows as long as the knee is higher than your heart. 3.) Move your knee. Please, do not be afraid to move the knee joint. It will be stiff and sore in the beginning, but this will slowly improve with healing time 4.) Wiggle your toes and exercise your ankle. These muscle pumps with help to take the swelling out of your knee and enhance circulation to the leg. Wiggle your toes and exercise your ankle for ten minutes every hour that you are awake. 5.) You may remove all bandages from your knee after 3 days. There may be some blood and drainage on the bandages, this is to be expected. You may clean the puncture sites with hydrogen peroxide (more content not included)... Normal [facility]R Intraoperative Recordon 11-09-2024 MAGR Intraoperative Record MAGR Intra-Op Record Summary Primary Physician: BRENDA MIDDLETON DO Finalized Date/Time: 11/09/24 15:31:48 Pt. Name: NIRMALMONASTACY ROBERTSON./Sex: 1965 MALE Med Rec #: [id number] Physician: BRENDA MIDDLETON DO Financial #: [id number] Pt. Type: D Room/Bed: / Admit/Disch: 11/09/24 12:11:14 - Institution: Case Times MAGR Entry 1 Patient In Room Time 11/09/24 14:35:00 Out Room Time 11/09/24 15:19:00 Anesthesia Start Time 11/09/24 14:35:00 Stop Time 11/09/24 15:19:00 Surgery Start Time 11/09/24 14:58:00 Stop Time 11/09/24 15:16:00 Last Modified By: Nichole Velazquez RN 11/09/24 15:25:46 Case Attendance MAGR Entry 1 Entry 2 Entry 3 Case Attendee BRENDA MIDDLETON Debra RN Mueller, David DO Role Performed Surgeon - Primary Dishwashing Machine Operator Anesthesiologist of Record Time In 11/09/24 14:42:00 11/09/24 14:35:00 11/09/24 14:35:00 Time Out 11/09/24 15:13:00 11/09/24 15:19:00 11/09/24 15:19:00 Procedure Arthroscopy Knee Arthroscopy Knee Arthroscopy Knee Last Modified By: Nichole Velazquez RN, Debra RN Myers, Debra RN 11/09/24 15:26:25 11/09/24 15:26:25 11/09/24 15:26:25 Entry 4 Case Attendee Opal Alvarez SOFT SHOE DANCER Role Performed Scrub Personnel Time In 11/09/24 14:35:00 Time Out 11/09/24 15:19:00 Procedure Arthroscopy Knee Last Modified By: Nichole Velazquez RN 11/09/24 15:26:25 Surgical Procedures MAGR Pre-Care Text: A.20 Verifies operative procedure, surgical site, and laterality Im.150 Develops individualized plan of care Entry 1 Procedure Arthroscopy Knee Primary Procedure Yes Primary Surgeon BRENDA MIDDLETON DO Surgeon Comment LEFT KNEE ARTHROSCOPY left patella chondroplasty, lateral excision facet patella, partial left, and medial menisectomy Start 11/09/24 14:58:00 Stop 11/09/24 15:16:00 Anesthesia Type General Surgical Service Orthopedics Wound Class Clean Technique Details Closure Technique Primary Entire procedure No was performed via laparoscope or robotic assistance Last Modified By: Nichole Velazquez RN 11/09/24 15:29:02 Post-Care Text: O.730 The patient's care is consistent with the individualized perioperative plan of care General Case Data MAGR Pre-Care Text: A.350.1 Classifies surgical wound Entry 1 Case Information OR MAGR OR 05 Case Level Level 4 Wound Class Clean Specialty Orthopedics ASA Class 3 Diagnosis Preop Diagnosis INTERNAL DERANGEMENT Postop Same As Preop Yes LEFT KNEE Postop Diagnosis INTERNAL DERANGEMENT LEFT KNEE Blunt or No Is the procedure No penetrating injury considered occured prior to Emergent/Urgent? the start of the procedure: Last Modified By: Nichole Velazquez RN 11/09/24 14:58:15 Post-Care Text: O.760 Patient receives consistent and comparable care regardless of the setting Time Out MAGR Entry 1 Procedure(s) Arthroscopy Knee Time Out Checklist Verifications Team Introductions Yes Confirmed Identity, Yes Completed Procedure, Incision Site, and Consent(s) Presence of Yes Site Verification, Yes Necessary Site Marking, Site Procedural Marking Equipment, Devices, Alternative, and/or and Implants Site Marking Verified Exception in Accordance with Facility Policy Anesthesia Review Antibiotic Received Yes All Anesthesia Yes Within an Concerns Addressed Appropriate Time Interval Prior to Surgical Incision Surgeon Review Anticipated Blood Yes Expected Case Yes Loss Risk Addressed Duration Addressed Critical and Yes Non-Routine Steps to be Performed Addressed Nurse Review Equipment Yes Fire Risk Yes Checks/Concerns Assessment Addressed Completed and Interventions Performed Diagnostic and Yes Sterilization n/a Radiological Test Concerns Addressed Results Displayed are Appropriate and Labeled Other Concerns n/a Addressed Time Out Surendra Silva DO, Time Out Time 11/09/24 14:57:00 Participants Nichole Velazquez RN, Opal Alvarez SO[employer] SHOE DANCER, BRENDA MIDDLETON DO Last Modified By: Nichole Velazquez RN 11/09/24 15:14:22 Patient Positioning MAGR Pre-Care Text: A.280 Identifies baseline musculoskeletal status Im.40 Positions the patient Im.80 Applies safety devices Entry 1 Procedure Arthroscopy Knee Body Position Supine Left Arm Position Extended on padded arm Right Arm Position Extended on padded arm board board Left Leg Position Dangling Right Leg Position Dangling Press Points Checked Yes Outcome Met (O.80) Yes Last Modified By: Nichole Velazquez RN 11/09/24 14:47:25 Post-Care Text: E.290 Evaluates musculoskeletal status O.80 Patient is free from signs and symptoms of injury related to positioning Skin Prep MAGR Pre-Care Text: A.30 Verifies allergies Im.270 Performs skin preparation Im.270.1 Implements protective measures to prevent skin and tissue injury due to chemical sources Entry 1 Skin Prep Syntegrity Prep Agents (Im.270) 2% Chlorhexidine Prep By Mendoza (more content not included)... [facility] MAGR PACU Recordon MAGR PACU Record MAGR PACU Record Summary Primary Physician: BRENDA MIDDLETON DO Finalized Date/Time: 11/09/24 16:01:35 Pt. Name: STACY BOLES/Sex: 1965 MALE Med Rec #: [id number] Physician: BRENDA MIDDLETON DO Financial #: [id number] Pt. Type: D Room/Bed: / Admit/Disch: 11/09/24 12:11:14 - Institution: PACU Case Times MAGR Entry 1 In PACU I 11/09/24 15:21:00 Discharge from PACU 11/09/24 15:47:00 I Last Modified By: Carola Dozier RN 11/09/24 16:01:32 Finalized By: Carola Dozier RN Document Signatures Signed By: Carola Dozier RN 11/09/24 16:01 [facility]-09-2024 MAGR Postoperative Record MAGR Phase II Record Summary Primary Physician: BRENDA MIDDLETON DO Finalized Date/Time: 11/09/24 16:50:38 Pt. Name: STACY BOLES/Sex: 1965 MALE Med Rec #: [id number] Physician: BRENDA MIDDLETON DO Financial #: [id number] Pt. Type: D Room/Bed: 206/1 Admit/Disch: 11/09/24 12:11:14 - Institution: Phase II Case Times MAGR Pre-Care Text: Patient is free from s/s of injury. Patient remains free from compromised physical state related to surgery or anesthesia. Patient comfort maintained. Patient/family verbalize understanding of discharge instructions. Entry 1 In PACU II 11/09/24 15:49:00 Discharge from PACU 11/09/24 16:45:00 II Last Modified By: Carola Dozier RN 11/09/24 16:50:34 Post-Care Text: The patient remains free from s/s of injury. Patient's vital signs stable, circulation maintained, return to preop mental and physical status, opsite/dressing intact, minimal or absent nausea and vomiting, tolerates po intake. Patient verbalizes adequate pain control. Patient/family express understanding of discharge instructions. Finalized By: Carola Dozier RN Document Signatures Signed By: Carola Dozier RN 11/09/24 16:50 [facility] Preoperative Recordon 0 11-09-2024 [facility] Preoperative Record MAGR Pre-Op Record Summary Primary Physician: BRENDA MIDDLETON DO Finalized Date/Time: 11/09/24 14:46:33 Pt. Name: STACY BOLES /Sex: 1965 MALE Med Rec #: [id number] Physician: BRENDA MIDDLETON DO Financial #: [id number] Pt. Type: D Room/Bed: / Admit/Disch: 11/09/24 12:11:14 - Institution: Pre-Op Case Times MAGR Pre-Care Text: Patient will be optimally prepared for surgery. Patient is free from s/s of injury. Provide information to patient/family related to plan of care. Verify patient allergies. Confirm identity and verify consent before the operative or invasive procedure. Entry 1 Patient Arrival Time 11/09/24 12:29:00 Preop Departure 11/09/24 14:33:00 Last Modified By: Jennifer Peñaloza RN 11/09/24 14:46:32 Post-Care Text: Patient is prepared mentally and physically and is ready for surgery. The patient remains free from s/s of injury. Patient/family express understanding of plan of care and participate in decisions affecting his or her perioperrative plan of care. Allergies documented appropriately. Patient identifiers and consent correct. General Comments: Pt arrives to w ambulatory. PT denies cp, sob, cough or flu like symptoms. PT denies pacemaker/defibillato r, pt has sleep apnea Finalized By: Jennifer Peñaloza RN Document Signatures Signed By: Jennifer Peñaloza RN 11/09/24 14:46 [facility] Patient Handouton 11-09-2024 Patient Handout Arthroscopic Surgery Discharge Instructions 1.) Keep ice on your knee after surgery. You may use the ice bag provided to you by the hospital or one from home. The ice should be applied at least 3 times a day for 20 minute intervals. 2.) Keep your knee elevated above the level of your hear. You may prop your leg up on pillows as long as the knee is higher than your heart. 3.) Move your knee. Please, do not be afraid to move the knee joint. It will be stiff and sore in the beginning, but this will slowly improve with healing time 4.) Wiggle your toes and exercise your ankle. These muscle pumps with help to take the swelling out of your knee and enhance circulation to the leg. Wiggle your toes and exercise your ankle for ten minutes every hour that you are awake. 5.) You may remove all bandages from your knee after 3 days. There may be some blood and drainage on the bandages, this is to be expected. You may clean the puncture sites with hydrogen peroxide and a cotton swab three times a day. Keep band aids over the puncture sites until scabbed over. 6.) If don't already have them, you will be issued a walker or crutches to aid in ambulation. These will allow you to move about without overloading your knee. The doctor would like you to: Add weight to your knee as tolerated. Let the level of pain be your guide 7.) Do not immerse your knee under water until the puncture sites have completely healed. You may shower and pat the knee dry after you remove the bandages starting in 3 days. 8.) Keep your follow up appoinment. 9.) If you notice foul odor, excessive drainage, calf pain, shortness of breath or increased swelling or pain call the office or proceed to the nearest Hospital Emergency Room. 10.) Be kind to yourself and do your exercises. Get planety of rest. Healing takes time. 11.) If you have been supplied with a brace, keep it in place at all times. 12.) For the next 24 hours do not drink any alcoholic beverages, drive a motore vehicle, operate machinery or powertools, make important decisions or sign important papers. 13.) You may feel dizzy, lightheaded or sleepy following surgery. Make sure you have someone with you for the rest of today. [facility] Progress Note - Nurseon 10-21 Progress Note - Nurse Spoke with pt and informed him to be at hospital at 1230 and NPO after MN, he verbalizes understanding. [Electronically Signed on: 11/08/2024 11:41 EDT] Ginny Nieves RN [Verified on: 11/08/2024 11:41 EDT] Ginny Nieves RN [facility] Coding Summaryon 10-26-2024 Coding Summary HTMLBase 64 RivituzzVDh1jDx+PGhlY WQ+YL8DUKVnI16ghEQuvN 6qZ3TFIAfYIjfcCWVIINx FFySdmzWpES6leKOuJYZw IC8+LK3dVTYpQsamlGGeu 8H5yDQ4H87snv2tBSnhwW Y5TSMjScBgibocf0ktyGy 6IDcuNmluOyBt OVBudG52PWU7cJ28Iy69n LTezBFfm0gvpPe2XjBeAC DdICW3kMjiIRawr5XtRIX iP08hdKRhx0F1 DWXzbZeecPCkSgRneET6y F1lJVehulkdr0wxkqnwMn q2hh07wTOal1A6eEP5F3M yfmQ1MPGoiZNx MzfncLAQiB8nvzqbc7pje jguDzJjOEJxFYk3QBp4KV YcbGpaCxUpUS17AXG8RUM phpReH1BoVNDn wRyzVsL2k5B4Kp0XN8VQH gjcR9GGLPYUBHtkiYF+PC 13ix19N7YjPjyhYep9NDG qSRK6fTU1oL2c THYiYEosp2P6tWK6N5Peb hKhqq1qc1ijIWSoXTvmX0 4flHIwp4C2QFLfxWX3DQX iySzjZyCcmD77 Oyc+XTNfdJzgz2LeZzzxo 5mea1otsKr8TsfaHHVtfl LkqIyyHXB3c6ArMg1hWBJ rjCI8nYP0sA2b SoPyQlA3PIarQ161XwPtr JEvAkedJ61aO6LntYE+PH ToXmu3HGShjCpcYA3sQ6W hZGRpbmctbGVm jQgqEL3oGYNfuznuWQVlf R3tIAZkK0c0TmApSlB9OS ziC7AaPJLxuaeaMx71jB3 gDbWuKvD5JLpm E6TegxT5LLZbpZQhIUjrG KU6O70ju6I9UQAzZWUcKV I6rVN3mR2vgTjmjqzcqFX mdDsgdmVydGlj IZxwOHcuU237AISzgIxlG kNvZGluZyBEYXRlOiAgMD YvMDYvMjAyNTwvdGQ+PHR oWGI8uTzqKNYy yIStBUllHp5jfAbywYjkT N2wDGSfpxrgMFUntE8dMR FgyNAtjLyzCA2sWRTrruy rq208CeLwGIL1 SCTorEHiG6YwyY5fLlIhI USoPRObA3HyjYNrMGrnH6 97JIpyYsD3UWVxhnLjI9D sLWFsaWduOiB0 y8C3Pb2Ec9GnaqqnG7Grq JZzPoHpJbwfTVp6L7QvCb wvdHI+YT31QRAhGL14OJl 4GZZ8tDqeQViu EIKuX9VegX6sYtXhQEToD GRkOyc+PHRhYmxlIHdpZH RoPScxMDAlJyBzdHlsZT0 sXx9eGNDiRIEk sXdrsGYvLxSbc0ekQXEuS OtbLD1dmDfaJ1RahRH1VU Tbq8a3Ls64N60fD1ZhgEL +NRTiyWU1tPI0 gB0lYpYiSmA8GQfoY864O qLbyZQjRfuwp8bqs4vdaS h6TgK3MBDkthOqnTrbOZU 4t9VwJi13R97v IHdpZHRoPSIxNSUiIHZhb Gvpmp1zuY4pQp7+PGNvbC E1vOU9jI6nUnLyTiT9IZn iQ748NfXeyEEz Eukhi4mru3dndBq3PdOqB KDqckNwsDceIYD4s9RxSh 77L2YndGvdy3LoZqj8ux4 3eYBvn7V8uOT5 O3VqCNStleudbLIylBtcN L0gIEOfwdbuKKDlvJ4zSM LeA2t3GlOwQtD6OAnpH5E qhoV0SDZqlGZa BJDklBJXfD0fkfexe7msn mmpYpMwNWIkLPg8QLd7NW CemUrlUxYoYYD0OrR3TRW 3uYFglY8feNhe fkwlpW8yVuo+WIG9cUJbl MJZWR4fIqsvuJN+PHRkIH K4pEblVLatVLPeuN1iIUM vB0r6AsYpSpE4 SEbyL6NzpqG5PDUbdHLpI ATwdBCRlM4tozxlw6orss lxSeVdFRKpMDa6XMx3DIV saWduOiBsZWZ0 SrH7HPG9lIVhiF1qrIxlc vrymD8hVlh+QmlydGggRG M3ZVm0A7NdWbp1CURluDu bHI5ibUDjFNqq Uk0qkEsrbEkgOA0oIYMvr kcwh559VaWax3xdJRNohY DsLTesZBV9P69ff0G4TWA aQUQeIQS3sOS7 vI7yaTzlvhusaJTwtRvjr qWsyJokDFtjJXpjC516DW JnwKqxKfUfIMl0Z9TyCha 6EBCfdGbwWX7q oWZuTScoRc9gxUaydUdvW T3nOQCojdlfl789OpCnt9 cjQKVcaVSzBNlmCKD4J80 ir8P6UPWqAEUr FJN5sSO4mN9lyHykuovwi GVmdDsgdmVydGljYWwtYW aeE414OSEwlHdjQzTrjRc 6I9NsErz3EIKg sVfuMN2nlKZrOZavXj6cj TlkdUvrZB8gGTWnvmbiv6 65QkDvf8yaGXOqyHCoBJn nKWL5S43mb9U1 UEJdUKUbHOV6pWI6dW2zl GlnbjogbGVmdDsgdmVydG wkSKowEKjwF407NFSndKv nPlBhdGllbnQg UOhnSOx6V8BiRkfahIN+P B21FPTyKX20cYQwmRRdf7 iiyXq3GjLcEUSmVAX7iBi yQVaft8ThZIFs E74afVDpm4M1EGMweMhxj KSsYwJdpQD5uG4nTPwgfn dkk2bzxkmnHovbx1mjtf8 0wU44S14cQCyq ZHRoPSIzMCUiIHZhbGlnb g9loZ7gTt5+VHQndPR9fN G1vM4bASReHhO9GWwmR20 9InRvcCIvPjxj b2ave8psjYh1RrC7GOXxc sVxeQgaRZD6h6GkWa95Q8 9sIHdpZHRoPSIyMCUiIHZ ixYbqeh4yfN7e Ii8+EWBazII6jHX3rI1iA cBqHiX2NGuwI018MfWrzN DfPlblJ55pT2ErqYL+PHR vIdn1DZAdvAfp BK2jvDQkWXmsMt2zBTX8I fQaJdEdTNyzZ2SjJCWifn ewinyzdME3XJCzNBRylD0 8Ji3pvUduRSOl fIUGzF8xgzaga8tejkjwH aStIUQcHTs2INp4QZLdcC jzGzXeTGM2GiI0IMZ0dTW jfT8gmFjziwuf oU3zZ7QwFRHprgwjWs50y G8aYfFaKgP3LAslAkn+U1 HFP3mXPGEXXDVbIIrZXbI SRVkgTUlDSEFF TDwvdGQ+KVQfMPA3zVvdW CdwJIJpcW3kKUAmF2m3Sb TvOuA9QGmqN0RmGOKuszn vBf50cY3lErUl NbS9POavS8YjvaH3FFOri YEiPRdhMBO5Q28uw4T7SF XiGIKuLZD5mMK2eD0wtEq nbjogbGVmdDsg yqLxySdzUHzcQHvmS259Y AZnuCfiYkS9QiT1YzX2Zp J1Y6GvFpy6MBCcfKxoYH9 xsMGuCHapBu0t jTsfvUxuZV2vEJCjwnxuD JLzjK4mDTQukCNvmPahQH 1cOHIhnbdex248VbUcAWP 9NBWrsHUzR8Ps xI1aHuMuODTfMCWwH2Edq LMzCVxlK679SHeeTcW5UK UizaDdU2CmNBXniDtwGoQ 7k4E6Wy13EVDN ZWFyczwvdGQ+ZHAzGYG5b QcyKPdgHHRmyA5rWLFbW6 m3DyZoDyJ2GIdnU1YvHGZ scbzrVk90jM8d DiGyTuJ9DVtiP6IwlvL5N RLtwVKxQXatLPZ6C73hf9 F8ODPvLNHsASR3xUT7zH5 hbGlnbjogbGVm dDsgdmVydGljYWwtYWxpZ 035EMXkdWpxKt1ECTS3A2 EkVzk7SRZyuTulDJ3ynZE eUObdUy1foNnq pYnvWX2aJTJsixudPOYyz Z0vGEOmdLVlxRkvLQ4jET Wbsfvos938SgQaTGC7LXR ycIJaJ4TafO1k ArDrCSHzZYNnC4AuwNGoB PrcZ828IMdkSfM2OKYkmz PgU4OkLHJirLvuTsX8r7N 3Il0KZHyvzDW+ RR02tm18U1JnZkqeIeb1C VXlBSH3eCF9qB1mXJIqJK bsg6X6uRZ8R2MywqChts3 xq0ovPXUyXXsv B54nvPPzq0A2ZZKokDN4L RUxbSzcHoBokT57Qwi+PG OntLuny0BwEdkro2ibm5m toVj6QlClKOSa deSehDsaGMP2t5GgSv61H 29sIHdpZHRoPSIzMCUiIH MqhKptxa2rmI7mXs4+PGN wfES1gCR5fI4x TyLnMcI9QYdmO191IkEto FCuYgjaf1xun7rjuPw2Dx ZuYSMnhnLgqIzfNRE2r7S uOk75X0TqeSdu h3TbDll1wc74dSNyc3J3l ST6B6OuLMCccfixdYDqaP xaUI2kILIerjfiCDUytY8 aXNBhA9h0JeDj JoT5NVnsM4QksmV3SHIlk UXpEYBkfBAWxI8rqfjij0 qehzmbWyJgJGEgRCm3FPn 0LWFsaWduOiBs VUL6QyP9SGS8mTMdbV6en CyftefbcA4rVlf+UGh5c2 cuqXHhMC7wcDM2PF08TX3 4fEGgz1C4vHU8 D4GgPUJtkvmxlktskBV1G BBvPRKnvB55Lq9jnTvgKv 2mFQYbGQP2CZPesHFaY4G ijS5sUqMaEVUb RUOzE3DwyIUpTLpoJ024F DdqRuV9IMUeivYqZ1CfEY DlgVzmUgN0d1L7Pr7QMI1 4JY43WD28wBKj v5N9dTU0T7WwSBQvausrr frrxLC7VUXfFECcoN24Dm 3doJwrRz9gSYSmMBX7NYQ stDVxY9AnhZ8e CjKjYQAtPHNjY8TttTZoN AgqB122AXqkTzW8UOFxay YkE1EuAUMvkMqiLbH8y8W 8Jj3VFi91XH16 WF23zJBrf4G9sZK8L5EoO YNefwhgmwkmlGM8QGScOG IeyY30Zl4fcOwyFc6zHQC pMXK1ANXtpGMp Y8FxiD6eAlWaGQSeDYWnA 1IvrQFvMIuyU293TTrwSo S4FDVeghTtS4FhMHXfeGc fNbX9x9F1Vj1R QDmzdja6D5XnNrugfQS+P V52CVKgKF71fVUtnJObk5 tjxMu9ExTwUXMxPFG1pRu aQMguq9SyLOTt Y29 (more content not included)... [facility] Progress Note - Nurseon Progress Note - Nurse Dr Rodriguez reviews pt chart and no new orders were received. [Electronically Signed on: 10/24/2024 13:25 EDT] Ginny Nieves RN [Verified on: 10/24/2024 13:25 EDT] Ginny Nieves RN [facility] .Auto Diff 1on 10-23-2024 [place] % 9 % Normal 06-03 [facility] Comment on above: Performed By: #### 1 [id number], [id number], [id number] ####[facility] (DEFAULT)[address] [place] [address] 67520 Baso Abs# 0.0 x10 Normal 0.0-0.2 [facility] Comment on above: Performed By: #### 1 [id number], [id number], [id number] ####[facility] (DEFAULT)[address] [place] [address] 25005 Basophils/100 WBC (Bld) 0.4 % Normal 0.2-2.0 [facility] Comment on above: Performed By: #### 1 [id number], [id number], [id number] ####[facility] (DEFAULT)[address] [place] [address] 87145 Eos Abs# 0.3 x10 Normal 0.0-0.4 [facility] Comment on above: Performed By: #### 1 [id number], [id number], [id number] ####[facility] (DEFAULT)[address] [place] [address] 71740 Eosinophils/100 WBC (Bld) 3.6 % Normal 0.9-4.0 [facility] Comment on above: Performed By: #### 1 [id number], [id number], [id number] ####[facility] (DEFAULT)[address] [place] [address] 74492 Lymph Abs# 2.5 x10 Normal 1.3-2.9 [facility] Comment on above: Performed By: #### 1 [id number], [id number], [id number] ####[facility] (DEFAULT)[address] [place] [address] 14235 Lymphocytes/100 WBC (Bld) 29 % Normal 14-48 [facility] Comment on above: Performed By: #### 1 [id number], [id number], [id number] ####[facility] (DEFAULT)[address] [place] [address] 40652 Centre Abs# 0.7 x10 Normal 0.0-0.8 [facility] Comment on above: Performed By: #### 1 [id number], [id number], [id number] ####[facility] (DEFAULT)[address] [place] [address] 76226 Neut Abs# 5.0 x10 Normal 1.5-9.2 [facility] Comment on above: Performed By: #### 1 [id number], [id number], [id number] ####[facility] (DEFAULT)[address] [place] [address] Neutrophils/100 WBC (Bld) 58 % Normal 44-88 [facility] Comment on above: Performed By: #### 1 [id number], [id number], [id number] ####[facility] (DEFAULT)[address] [place] [address] Standardon 10-23-2024 eGFR Non AA >60 Invalid Interpretation Code [facility] Comment on above: Performed By: #### 1 [id number], [id number], [id number] ####[facility] (DEFAULT)[address] [place] [address] 45548 eGFR AA >60 Invalid Interpretation Code [facility] Comment on above: Performed By: #### 1 [id number], [id number], [id number] ####[facility] (DEFAULT)[address] [place] [address] 76787 Anion gap [Moles/Vol] 15.5 mmol/L Normal 5.0-19.0 [facility] Comment on above: Performed By: #### 1 [id number], [id number], [id number] ####[facility] (DEFAULT)[address] [place] [address] 10767 Calcium [Mass/Vol] 9.5 mg/dL Normal 8.9-10.3 [facility] Comment on above: Performed By: #### 1 [id number], [id number], [id number] ####[facility] (DEFAULT)[address] [place] [address] 53039 Chloride [Moles/Vol] 98 mmol/L Low 101-111 [facility] Comment on above: Performed By: #### 1 [id number], 1406206, [id number] ####[facility] (DEFAULT)[address] [place] [address] CO2 [Moles/Vol] 26 mmol/L Normal 21-32 [facility] Comment on above: Performed By: #### 1 [id number], [id number], [id number] ####[facility] (DEFAULT)[address] [place] [address] 56417 Creatinine [Mass/Vol] 0.93 mg/dL Normal 0.90-1.30 [facility] Comment on above: Performed By: #### 1 [id number], 8485344, [id number] ####[facility] (DEFAULT)[address] [place] [address] 07543 Glucose [Mass/Vol] 102.0 mg/dL Normal 74.0-118.0 [facility] Comment on above: Performed By: #### 1 [id number], 8413786, [id number] ####[facility] (DEFAULT)[address] [place] [address] 74063 Osmolality 272 mOsm/L Invalid Interpretation Code [facility] Comment on above: Performed By: #### 1 [id number], [id number], [id number] ####[facility] (DEFAULT)[address] [place] [address] 25949 Potassium [Moles/Vol] 3.5 mmol/L Low 3.6-5.1 [facility] Comment on above: Performed By: #### 1 [id number], 0638844, [id number] ####[facility] (DEFAULT)[address] [place] [address] 02604 Sodium [Moles/Vol] 136.0 mmol/L Normal 136.0-144.0 [facility] Comment on above: Performed By: #### 1 [id number], [id number], [id number] ####[facility] (DEFAULT)[address] [place] [address] 47434 Urea nitrogen [Mass/Vol] 13 mg/dL Normal 8-26 [facility] Comment on above: Performed By: #### 1 [id number], [id number], [id number] ####[facility] (DEFAULT)[address] [place] [address] 14375 Urea nitrogen/Creatinin e [Mass ratio] 13.9 mg/mg Normal 4.6-16.2 [facility] Comment on above: Performed By: #### 1 [id number], 1366435, [id number] ####[facility] (DEFAULT)[address] [place] [address] CBC w/ Auto Diffon 5 Erythrocyte distribution width (RBC) [Ratio] 14.2 % Normal 11.5-15.0 [facility] Comment on above: Performed By: #### 1 [id number], 7061611, [id number] ####[facility] (DEFAULT)[address] [place] [address] Hematocrit (Bld) [Volume fraction] 41.5 % Normal 34.8-51.9 [facility] Comment on above: Performed By: #### 1 [id number], [id number], [id number] ####[facility] (DEFAULT)[address] [place] [address] Hemoglobin (Bld) [Mass/Vol] 14.6 g/dL Normal 11.8-17.7 [facility] Comment on above: Performed By: #### 1 [id number], [id number], [id number] ####[facility] (DEFAULT)[address] [place] [address] Man Diff? Auto Invalid Interpretation Code [facility] Comment on above: Performed By: #### 1 [id number], [id number], [id number] ####[facility] (DEFAULT)[address] [place] [address] MCH (RBC) [Entitic mass] 30 pg Normal 24-34 [facility] Comment on above: Performed By: #### 1 [id number], [id number], [id number] ####[facility] (DEFAULT)[address] [place] [address] MCHC (RBC) [Mass/Vol] 35 g/dL Normal 26-37 [facility] Comment on above: Performed By: #### 1 [id number], [id number], [id number] ####[facility] (DEFAULT)[address] [place] [address] MCV (RBC) [Entitic vol] 84 fL Normal 81-100 [facility] Comment on above: Performed By: #### 1 [id number], [id number], [id number] ####[facility] (DEFAULT)[address] [place] [address] Platelet 288 x10 Normal 138-427 [facility] Comment on above: Performed By: #### 1 [id number], [id number], [id number] ####[facility] (DEFAULT)[address] [place] [address] Platelet mean volume (Bld) [Entitic vol] 7.6 fL Normal 6.3-10.2 [facility] Comment on above: Performed By: #### 1 [id number], [id number], [id number] ####[facility] (DEFAULT)[address] [place] [address] RBC 4.93 x10 Normal 3.70-5.30 [facility] Comment on above: Performed By: #### 1 [id number], [id number], [id number] ####[facility] (DEFAULT)[address] [place] [address] WBC 8.6 x10 Normal 3.5-10.5 [facility] Comment on above: Performed By: #### 1 [id number], [id number], [id number] ####[facility] (DEFAULT)[address] [place] [address] XR Knee - left 1 or 2 Viewso n 09-26-2024 Imaging Result: X-rays AP and lateral of left knee show mild degenerative changes with mild flattening of the articular surfaces to the medial joint line with decreased joint space height to the medial joint line. Lateral joint line appeared to be well preserved there was subchondral sclerosis noted at the medial joint line and patellofemoral joint. There is no evidence of fracture or dislocation. Bony structures visualized appeared to be adequately ossified. [facility] Rad[facility] Study observation (narrative) [facility] COMPREHENSIVE METABOLIC PANE [place] 07-12-2024 Albumin [Mass/Vol] 4.3 g/dL Normal 3.2-5.3 [facility] Comment on above: Performed By: #### C , [id number] #### [facility] ([id number]) [address], [address] [place] [address] ALP [Catalytic activity/Vol] 62 U/L Normal 39-130 [facility] Comment on above: Performed By: #### Joni RIVERA, 75705-2 #### [facility] ([id number]) [address] [place] [address] ALT [Catalytic activity/Vol] 25 U/L Normal 0-40 [facility] Comment on above: Performed By: #### Joni RIVERA, 51507-9 #### [facility] ([id number]) [address] [place] [address] Anion gap [Moles/Vol] 9 mmol/L Normal 5-15 [facility] Comment on above: Performed By: #### Joni RIVERA, 28067-9 #### [facility] ([id number]) [address], [address] [place] [address] AST [Catalytic activity/Vol] 24 U/L Normal 0-41 [facility] Comment on above: Performed By: #### Joni RIVERA, 03805-9 #### [facility] ([id number]) [address] [place] [address] Bilirubin [Mass/Vol] 0.6 mg/dL Normal 0.3-1.2 [facility] Comment on above: Performed By: #### Joni RIVERA, 22927-2 #### [facility] ([id number]) [address] [place] [address] Calcium [Mass/Vol] 9.3 mg/dL Normal 8.5-10.5 [facility] Comment on above: Performed By: #### Joni RIVERA, 89695-7 #### [facility] ([id number]) [address], [address] [place] [address] Chloride [Moles/Vol] 100 mmol/L Normal 98-109 [facility] Comment on above: Performed By: #### Joni RIVERA, 69456-2 #### [facility] ([id number]) [address], [address] [place] [address] CO2 [Moles/Vol] 29 mmol/L Normal 22-32 [facility] Comment on above: Performed By: #### Joni RIVERA, 74488-8 #### [facility] ([id number]) [address] [place] [address] Creatinine [Mass/Vol] 0.96 mg/dL Normal 0.60-1.30 [facility] Comment on above: Result Comment: METH OD TRACEABLE TO IDMS STANDARD Performed By: #### Joni RIVERA, 94392-8 #### [facility] ([id number]) [address] [place] [address] eGFR (CKD-EPI) NON-RACE DEPENDENT >90 Normal >59 [facility] Comment on above: Result Comment: Reported eGFR is based on the CKD-EPI 2020 equation that does not use a race coefficient. Performed By: #### Joni RIVERA, 99232-0 #### [facility] ([id number]) [address] [place] [address] Glucose [Mass/Vol] 92 mg/dL Normal 65-99 [facility] Comment on above: Performed By: #### Joni RIVERA, 66899-2 #### [facility] ([id number]) [address] [place] [address] Potassium [Moles/Vol] 3.6 mmol/L Normal 3.5-5.0 [facility] Comment on above: Performed By: #### Joni RIVERA, 62469-5 #### [facility] ([id number]) [address], [address] [place] [address] Protein [Mass/Vol] 7.4 g/dL Normal 6.0-8.0 [facility] Comment on above: Performed By: #### Joni RIVERA, 31319-5 #### [facility] ([id number]) [address], [address] [place] [address] Sodium [Moles/Vol] 138 mmol/L Normal 134-146 [facility] Comment on above: Performed By: #### Joni RIVERA, 91288-5 #### [facility] ([id number]) [address] [place] [address] Urea nitrogen [Mass/Vol] 15 mg/dL Normal 5-23 [facility] Comment on above: Performed By: #### Joni RIVERA, 72578-2 #### [facility] ([id number]) [address] [place] [address] Lipid 1996 panelon 5 Cholesterol [Mass/Vol] 178 mg/dL Normal 150-200 [facility] Comment on above: Performed By: #### Joni RIVERA, 46086-0 #### [facility] ([id number]) [address] [place] [address] Cholesterol in HDL [Mass/Vol] 43 mg/dL Normal >39 [facility] Comment on above: Result Comment: HDL <40 mg/dL - High Risk HDL > or = 40mg/dL- Desirable HDL >60 mg/dL - Negative Risk Performed By: #### Joni RIVERA, 66032-9 #### [facility] ([id number]) [address] [place] [address] Cholesterol in LDL [Mass/Vol] 93 mg/dL Normal <130 [facility] Comment on above: Result Comment: LDL <100 mg/dL - Desirable LDL >160 mg/dL - High Risk Performed By: #### Joni RIVERA, 58749-2 #### [facility] ([id number]) [address] [place] [address] Cholesterol in VLDL [Mass/Vol] 42 mg/dL High 0-30 [facility] Comment on above: Performed By: #### Joni RIVERA, 77315-7 #### [facility] ([id number]) [address] [place] [address] CHOLESTEROL:HDL 4.1 Normal 1.0-5.0 [facility] Comment on above: Performed By: #### Joni RIVERA, 33696-9 #### [facility] ([id number]) [address] [place] [address] Triglyceride [Mass/Vol] 210 mg/dL High 27-150 [facility] Comment on above: Performed By: #### Joni RIVERA, 92939-8 #### [facility] ([id number]) [address] [place] [address] Comprehensive metabolic pane thiago 05-25-2023 Albumin [Mass/Vol] 4.3 g/dL 3.2 - 5.3 g/dL [facility] ALP [Catalytic activity/Vol] 58 U/L 39 - 130 U/L [facility] ALT No additional P-5'-P [Catalytic activity/Vol] 41 U/L High 0 - 40 U/L [facility] Anion gap [Moles/Vol] 11 mmol/L 5 - 15 mmol/L [facility] AST [Catalytic activity/Vol] 34 U/L 0 - 41 U/L [facility] Bilirubin [Mass/Vol] 0.6 mg/dL 0.3 - 1.2 mg/dL [facility] Calcium [Mass/Vol] 9.1 mg/dL 8.5 - 10. 5 mg/dL [facility] Chloride [Moles/Vol] 99 mmol/L 98 - 109 mmol/L [facility] CO2 [Moles/Vol] 28 mmol/L 22 - 32 mmol/L [facility] Creatinine [Mass/Vol] 0.94 mg/dL 0.60 - 1.30 mg/dL [facility] Comment on above: METHOD TRACEABLE TO [facility] STANDARD eGFR (CKD-EPI)non-race dependent - PINF [facility] Comment on above: Reported eGFR is based on the CKD-EPI 2020 equation that does not use a race coefficient. Glucose [Mass/Vol] 90 mg/dL 65 - 99 mg/dL [facility] Potassium [Moles/Vol] 3.3 mmol/L Low 3.5 - 5.0 mmol/L [facility] Protein [Mass/Vol] 7.1 g/dL 6.0 - 8.0 g/dL [facility] Sodium [Moles/Vol] 138 mmol/L 134 - 146 mmol/L [facility] Urea nitrogen [Mass/Vol] 20 mg/dL 5 - 23 mg/dL [facility] Lipid 1996 panelon 4 Cholesterol [Mass/Vol] 209 mg/dL High 150 - 200 mg/dL [facility] Cholesterol in HDL [Mass/Vol] 48 mg/dL 39 - PINF mg/dL [facility] Comment on above: HDL <40 mg/dL - High Risk HDL > or = 40mg/dL- Desirable HDL >60 mg/dL - Negative Risk Cholesterol in LDL [Mass/Vol] 107 mg/dL NINF - 130 mg/dL [facility] Comment on above: LDL <100 mg/dL - Desirable LDL >160 mg/dL - High Risk Cholesterol in VLDL [Mass/Vol] 54 mg/dL High 0 - 30 mg/dL [facility] Cholesterol.total/ Cholesterol in HDL [Mass ratio] 4.4 {ratio} 1.0 - 5.0 [facility] Triglyceride [Mass/Vol] 270 mg/dL High 27 - 150 mg/dL [facility] No Panel Informationon 05-25 Interpretation and review of laboratory results Abnormal [facility] Prostate specific Ag [Mass/V ol]on 05-25-2023 [facility] Prostatic specific antigen s creenon 05-25-2023 Prostate specific Ag [Mass/Vol] 0.45 ng/mL 0.00 - 4.00 ng/mL [facility] Comment on above: The method used for this test is Coghead DXI chemiluminescent immunoassay. Values obtained by different assay methods cannot be used interchangeably. LIPID PROFILEon 02-02-2022 CHOL-HDL RATIO NORM SEE BELOW Normal [facility] Comment on above: Result Comment: 3.3 - 4.4 LOW RISK 4.4 - 7.1 AVERAGE RISK 7.1 - 11.0 MODERATE RISK >11.0 HIGH RISK Performed By: #### L IPID, CMP #### [facility] [address] [place] [address] Dr. Emelia Tirado Cholesterol [Mass/Vol] 185 mg/dL Normal <=200 [facility] Comment on above: Performed By: #### L IPID, CMP #### [facility] [address] [place] [address] Dr. Emelia Tirado Cholesterol in HDL [Mass/Vol] 45 mg/dL Normal 40-60 [facility] Comment on above: Performed By: #### L IPID, CMP #### [facility] [address] [address] [address] Emelia Tirado Cholesterol in LDL [Mass/Vol] 94.4 mg/dL Normal [facility] Comment on above: Performed By: #### L IPID, CMP #### [facility] [address] [place] [address] Dr. Emelia Tirado Cholesterol.total/ Cholesterol in HDL [Mass ratio] 4.1 {ratio} Normal [facility] Comment on above: Performed By: #### L IPID, CMP #### [facility] [address] [place] [address] Dr. Emelia Tirado HDL NORMAL > or = 60 mg/dl - LO W CARDIOVASCULAR RISK <40 mg/dl - HIGH CARDIOVASCULAR RISK Normal [facility] Comment on above: Performed By: #### L IPID, CMP #### [facility] [address] [address] [address] Emelia Tirado LDL CALC NORMAL SEE BELOW Normal [facility] Comment on above: Result Comment: <100 mg/dl OPTIMAL 100 - 129 mg/dl NEAR OR ABOVE OPTIMAL 130 - 159 mg/dl BORDERLINE HIGH 160 - 189 mg/dl HIGH >190 mg/dl VERY HIGH Performed By: #### L IPID, CMP #### [facility] [address] [address] [address] Emelia Tirado Triglyceride [Mass/Vol] 228 mg/dL Critically high <=150 [facility] Comment on above: Performed By: #### L IPID, CMP #### [facility] [address] [address] [address] Emelia Tirado VLDL CALC 45.6 mg/dL Normal [facility] Comment on above: Performed By: #### L IPID, CMP #### [facility] [address] [address] [address] Emelia Tirado PROF 14(COMP METB)on 022 Albumin [Mass/Vol] 4.0 g/dL Normal 3.4-5.0 [facility] Comment on above: Performed By: #### L IPID, CMP #### [facility] [address] [address] [address] Emelia Tirado Albumin/Globulin [Mass ratio] 1.2 {ratio} Normal [facility] Comment on above: Performed By: #### L IPID, CMP #### [facility] [address] [address] [address] Emelia Tirado ALP [Catalytic activity/Vol] 72 U/L Normal 46-116 [facility] Comment on above: Performed By: #### L IPID, CMP #### [facility] [address] [address] [address] Emelia Tirado ALT [Catalytic activity/Vol] 32 U/L Normal 16-63 [facility] Comment on above: Performed By: #### L IPID, CMP #### [facility] [address] [address] [address] Emelia Tirado Anion gap [Moles/Vol] 11.1 mmol/L Normal [facility] Comment on above: Performed By: #### L IPID, CMP #### [facility] [address] [address] [address] Emelia Tirado AST [Catalytic activity/Vol] 23 U/L Normal 15-37 [facility] Comment on above: Performed By: #### L IPID, CMP #### [facility] [address] [address] [address] Emelia Tirado Bilirubin [Mass/Vol] 0.6 mg/dL Normal 0.2-1.0 [facility] Comment on above: Performed By: #### L IPID, CMP #### [facility] [address] [place] [address] Dr. Emelia Tirado Calcium [Mass/Vol] 9.0 mg/dL Normal 8.5-10.1 [facility] Comment on above: Performed By: #### L IPID, CMP #### [facility] [address] [address] [address] Emelia Tirado Chloride [Moles/Vol] 98 mmol/L Normal 98-107 [facility] Comment on above: Performed By: #### L IPID, CMP #### [facility] [address] [address] [address] Emelia Tirado CO2 [Moles/Vol] 32.1 mmol/L Critically high 21.0-32.0 [facility] Comment on above: Performed By: #### L IPID, CMP #### [facility] [address] [address] [address] Emelia Tirado Creatinine [Mass/Vol] 1.12 mg/dL Normal 0.70-1.30 [facility] Comment on above: Performed By: #### L IPID, CMP #### [facility] [address] [place] [address] Dr. Emelia Tirado EGFR-AF GREEK >60 Normal >=60 [facility] Comment on above: Performed By: #### L IPID, CMP #### [facility] [address] [address] [address] Emelia Tirado EGFR-NON AF GREEK >60 Normal >=60 [facility] Comment on above: Performed By: #### L IPID, CMP #### [facility] [address] [address] [address] Emelia Tirado Globulin (S) [Mass/Vol] 3.4 g/dL Normal [facility] Comment on above: Performed By: #### L IPID, CMP #### [facility] [address] [address] [address] Emelia Tirado Glucose [Mass/Vol] 96 mg/dL Normal 74-106 [facility] Comment on above: Performed By: #### L IPID, CMP #### [facility] [address] [place] [address] Dr. Emelia Tirado Potassium [Moles/Vol] 3.2 mmol/L Critically low 3.5-5.1 [facility] Comment on above: Performed By: #### L IPID, CMP #### [facility] [address] [place] [address] Dr. Emelia Tirado Protein [Mass/Vol] 7.4 g/dL Normal 6.4-8.2 [facility] Comment on above: Performed By: #### L IPID, CMP #### [facility] [address] [address] [address] Emelia Tirado Sodium [Moles/Vol] 138 mmol/L Normal 136-145 [facility] Comment on above: Performed By: #### L IPID, CMP #### [facility] [address] [address] [address] Emelia Tirado Urea nitrogen [Mass/Vol] 15.0 mg/dL Normal 7.0-18.0 [facility] Comment on above: Performed By: #### L IPID, CMP #### [facility] [address] [place] [address] Dr. Emelia Tirado Urea nitrogen/Creatinin e [Mass ratio] 13.4 mg/mg Normal [facility] Comment on above: Performed By: #### L IPID, CMP #### [facility] [address] [address] [address] Emelia Tirado [facility] 06-17-2021 Albumin [Mass/Vol] 4.3 g/dL Normal 3.6-5.1 [facility] Comment on above: Performed By: #### 1 0231, 7600 #### [facility] of [address], [address] [place] [address] Enrollment Eligibility Representative: Taz Cordero MD Albumin/Globulin [Mass ratio] 1.8 {ratio} Normal 1.0-2.5 [facility] Comment on above: Performed By: #### 1 0231, 7600 #### [facility] [place] [address] Enrollment Eligibility Representative: Taz Cordero MD ALP [Catalytic activity/Vol] 68 U/L Normal 35-144 [facility] Comment on above: Performed By: #### 1 0231, 7600 #### [facility] of [place] [address] Enrollment Eligibility Representative: Taz Cordero MD ALT [Catalytic activity/Vol] 34 U/L Normal 9-46 [facility] Comment on above: Performed By: #### 1 0231, 7600 #### [facility] of [address], [address] [place] [address] Enrollment Eligibility Representative: Taz Cordero MD AST [Catalytic activity/Vol] 25 U/L Normal 10-35 [facility] Comment on above: Performed By: #### 1 0231, 7600 #### [facility] of [place] [address] Enrollment Eligibility Representative: Taz Cordero MD Bilirubin [Mass/Vol] 0.7 mg/dL Normal 0.2-1.2 [facility] Comment on above: Performed By: #### 1 0231, 7600 #### [facility] of [address], [address] [place], [place] [address] Enrollment Eligibility Representative: Taz Cordero MD BUN/CREATININE RATIO NOT APPLICABLE Normal 6-22 [facility] Comment on above: Performed By: #### 1 0231, 7600 #### [facility] [address], [address] [place] [address] Enrollment Eligibility Representative: Taz Cordero MD Calcium [Mass/Vol] 9.1 mg/dL Normal 8.6-10.3 [facility] Comment on above: Performed By: #### 1 023, 7600 #### [facility] [address], [address] [place] [address] Enrollment Eligibility Representative: Taz Cordero MD Chloride [Moles/Vol] 103 mmol/L Normal 98-110 [facility] Comment on above: Performed By: #### 1 023, 7600 #### [facility] [address], [address] [place] [address] Enrollment Eligibility Representative: Taz Cordero MD CO2 [Moles/Vol] 29 mmol/L Normal 20-32 [facility] Comment on above: Performed By: #### 1 023, 7600 #### [facility] [place] [address] Enrollment Eligibility Representative: Taz Cordero MD Creatinine [Mass/Vol] 1.01 mg/dL Normal 0.70-1.33 [facility] Comment on above: Result Comment: For patients >49 years of age, the reference limit for Creatinine is approximately 13% higher for people identified as -Northern Irish. Performed By: #### 1 023, 7600 #### [facility] [address], [address] [place] [address] Enrollment Eligibility Representative: Taz Cordero MD eGFR NON-AFR. GREEK 83 mL/min/1.73m2 Normal > OR = 60 [facility] Comment on above: Performed By: #### 1 023, 7600 #### [facility] [address], [address] [place] [address] Enrollment Eligibility Representative: Taz Cordero MD GFR/1.73 sq M.predicted among blacks MDRD (S/P/Bld) [Vol rate/Area] 97 mL/min/{1.73_m2} Normal > OR = 60 [facility] Comment on above: Performed By: #### 1 023, 7600 #### [facility] [place] [address] Enrollment Eligibility Representative: Taz Cordero MD Globulin (S) [Mass/Vol] 2.4 g/dL Normal 1.9-3.7 [facility] Comment on above: Performed By: #### 1 023, 7600 #### [facility] [place] [address] Enrollment Eligibility Representative: Taz Cordero MD Glucose [Mass/Vol] 82 mg/dL Normal 65-99 [facility] Comment on above: Result Comment: Fasting reference interval Performed By: #### 1 230, 0 #### [facility] [place] [address] Enrollment Eligibility Representative: Taz Cordero MD Potassium [Moles/Vol] 3.8 mmol/L Normal 3.5-5.3 [facility] Comment on above: Performed By: #### 1 023, 7600 #### [facility] [place] [address] Enrollment Eligibility Representative: Taz Cordero MD Protein [Mass/Vol] 6.7 g/dL Normal 6.1-8.1 [facility] Comment on above: Performed By: #### 1 230, 7600 #### [facility] of [place] [address] Enrollment Eligibility Representative: Taz Cordero MD Sodium [Moles/Vol] 139 mmol/L Normal 135-146 [facility] Comment on above: Performed By: #### 1 023, 7600 #### [facility] of [place] [address] Enrollment Eligibility Representative: Taz Cordero MD Urea nitrogen [Mass/Vol] 16 mg/dL Normal 7-25 [facility] Comment on above: Performed By: #### 1 023, 0 #### [facility] [address], [address] [place] [address] Enrollment Eligibility Representative: Taz Cordero MD LIPID PANEL, [facility] 05-24 Cholesterol [Mass/Vol] 189 mg/dL Normal <200 [facility] Comment on above: Order Comment: FASTI NG:YES FASTING: YES Performed By: #### 1 0231, 7600 #### [facility] [address], [address] [place] [address] Enrollment Eligibility Representative: Taz Cordero MD Cholesterol in HDL [Mass/Vol] 45 mg/dL Normal > OR = 40 [facility] Comment on above: Order Comment: FASTI NG:YES FASTING: YES Performed By: #### 1 0231, 7600 #### [facility] [address], [address] [place] [address] Enrollment Eligibility Representative: Taz Codrero MD Cholesterol in LDL [Mass/Vol] 107 mg/dL High [facility] Comment on above: Order Comment: FASTI NG:YES FASTING: YES Result Comment: Refe rence range: <100 Desirable range <100 mg/dL for primary prevention; <70 mg/dL for patients with CHD or diabetic patients with > or = 2 CHD risk factors. LDL-C is now calculated using the Katerina calculation, which is a validated novel method providing better accuracy than the Friedewald equation in the estimation of LDL-C. Alexander CHAVEZ et al. JOHN. 2013;310(19): 8033-7563 (http://education.Communicado.Animeeple/faq/GDQ200) Performed By: #### 1 0231, 0 #### [facility] [address], [address] [place] [address] Enrollment Eligibility Representative: Taz Cordero MD Cholesterol.total/ Cholesterol in HDL [Mass ratio] 4.2 {ratio} Normal <5.0 [facility] Comment on above: Order Comment: FASTI NG:YES FASTING: YES Performed By: #### 1 0231, 7600 #### [facility] [address], [address] [place] [address] Enrollment Eligibility Representative: Taz Cordero MD NON HDL CHOLESTEROL 144 mg/dL (calc) High <130 [facility] Comment on above: Order Comment: FASTI NG:YES FASTING: YES Result Comment: For patients with diabetes plus 1 major ASCVD risk factor, treating to a non-HDL-C goal of <100 mg/dL (LDL-C of <70 mg/dL) is considered a therapeutic option. Performed By: #### 1 0231, 7600 #### [facility] [address], [address] [place] [address] Enrollment Eligibility Representative: Taz Cordero MD Triglyceride [Mass/Vol] 243 mg/dL High <150 [facility] Comment on above: Order Comment: FASTI NG:YES FASTING: YES Result Comment: If a non-fasting specimen was collected, consider repeat triglyceride testing on a fasting specimen if clinically indicated. Pacheco et al. J. of Clin. Lipidol. 2015;9:129-169. Performed By: #### 1 0231, 0 #### [facility] [address], [address] [place] [address] Enrollment Eligibility Representative: Taz Cordero MD Vital Signs Date Time Vital Sign Value Performing Clinician Facility 01-29-2025 [id number] Body height 175.3 cm Rudi Velez DO Work Phone: [facility] 01-29-2025 15:10-0400 Body mass index (BMI) [Ratio] 41.62 kg/m2 Rudi Velez DO Work Phone: [facility] 01-29-2025 15:10-0400 Body temperature 97.2 [degF] Rudi Velez DO Work Phone: [facility] 01-29-2025 15:10-0400 Body weight 127.91 kg Rudi Velez DO Work Phone: [facility] 01-29-2025 15:10-0400 Diastolic blood pressure 78 mm[Hg] Rudi Velez DO Work Phone: [facility] 01-29-2025 15:10-0400 Heart rate 62 /min Rudi Velez DO Work Phone: [facility] 01-29-2025 15:10-0400 Respiratory rate 18 /min Rudi Velez DO Work Phone: [facility] 01-29-2025 15:10-0400 SaO2% (BldA) [Mass fraction] 98 % Rudi Velez DO Work Phone: [facility] 01-29-2025 15:10-0400 Systolic blood pressure 126 mm[Hg] Rudi Velez DO Work Phone: [facility] 10-22-2024 14:56-0400 Body height 175.3 cm Dav Nelson [employer] Work Phone: [facility] 10-22-2024 14:56-0400 Body mass index (BMI) [Ratio] 39.13 kg/m2 Dav Nelson [employer] Work Phone: [facility] 10-22-2024 14:56-0400 Body weight 120.2 kg Dav Nelson [employer] Work Phone: [facility] 09-25-2024 15:58-0400 Body height 175.3 cm Lisa Marilee DO Work Phone: [facility] 09-25-2024 15:58-0400 Body mass index (BMI) [Ratio] 39.13 kg/m2 Lisa Marilee DO Work Phone: [facility] 09-25-2024 15:58-0400 Body weight 120.2 kg Lisa Marilee DO Work Phone: [facility] 09-25-2024 15:58-0400 Diastolic blood pressure 86 mm[Hg] Lisa Mrailee DO Work Phone: [facility] 09-25-2024 15:58-0400 Heart rate 62 /min Lisa Marilee DO Work Phone: [facility] 09-25-2024 15:58-0400 SaO2% (BldA) [Mass fraction] 96 % Lisa Marilee DO Work Phone: [facility] 09-25-2024 15:58-0400 Systolic blood pressure 132 mm[Hg] Lisa Santiago DO Work Phone: [facility] 07-12-2024 15:22-0500 Body height 175.3 cm Rudi Velez DO Work Phone: [facility] 07-12-2024 15:22-0500 Body mass index (BMI) [Ratio] 41.05 kg/m2 Rudi Orrs DO Work Phone: [facility] 07-12-2024 15:22-0500 Body weight 126.1 kg Rudi Velez DO Work Phone: [facility] 07-12-2024 15:22-0500 Diastolic blood pressure 82 mm[Hg] Rudi Velez DO Work Phone: [facility] 07-12-2024 15:22-0500 Heart rate 66 /min Rudi Velez DO Work Phone: [facility] 07-12-2024 15:22-0500 SaO2% (BldA) [Mass fraction] 99 % Rudi Velez DO Work Phone: [facility] 07-12-2024 15:22-0500 Systolic blood pressure 118 mm[Hg] Rudi Velez DO Work Phone: [facility] 01-02-2024 14:51-0400 Body height 175.3 cm Rudi Orrs DO Work Phone: [facility] 01-02-2024 14:51-0400 Body mass index (BMI) [Ratio] 39.75 kg/m2 Rudi Orrs DO Work Phone: [facility] 01-02-2024 14:51-0400 Body temperature 97.7 [degF] Rudi Velez DO Work Phone: [facility] 01-02-2024 14:51-0400 Body weight 122.11 kg Rudi Orrs DO Work Phone: [facility] [employer] 01-02-2024 14:51-0400 Diastolic blood pressure 70 mm[Hg] Rudi Ganhas DO Work Phone: [facility] [employer] 01-02-2024 14:51-0400 Heart rate 56 /min Rudi Ganhas DO Work Phone: [facility] 01-02-2024 14:51-0400 SaO2% (BldA) [Mass fraction] 98 % Rudi Orrs DO Work Phone: [facility] 01-02-2024 14:51-0400 Systolic blood pressure 122 mm[Hg] Rudi Orrs DO Work Phone: [facility] [employer] [facility] 05-25-2023 16:08-0500 Body height 175.3 cm Rudi Orrs DO Work Phone: [facility] [employer] [facility] 05-25-2023 16:08-0500 Body mass index (BMI) [Ratio] 38.44 kg/m2 Rudi Orrs DO Work Phone: [facility] 05-25-2023 16:08-0500 Body temperature 96.6 [degF] Rudi Orrs DO Work Phone: [facility] [employer] [facility] 05-25-2023 16:08-0500 Body weight 118.07 kg Rudi Orrs DO Work Phone: [facility] [employer] [facility] 05-25-2023 16:08-0500 Diastolic blood pressure 70 mm[Hg] Rudi Ganhas DO Work Phone: [facility] 05-25-2023 16:08-0500 Heart rate 81 /min Rudi Ganhas DO Work Phone: [facility] [employer] [facility] 05-25-2023 16:08-0500 SaO2% (BldA) [Mass fraction] 96 % Rudi Ganhas DO Work Phone: [facility] [employer] [facility] 05-25-2023 16:08-0500 Systolic blood pressure 118 mm[Hg] Rudi Ganmatilde DO Work Phone: [facility] Encounters Encounter Date Encounter Type Care Provider Facility Start: 01-29-2025 End: 01-29-2025 ambulatory [facility] Start: 01-29-2025 End: 01-29-2025 Office outpatient visit 25 minutes Rudi Vyas Rosie FLORES Work Phone: [facility] Comment on above: Essential hypertensi on (Primary Dx); EMIL (obstructive sleep apnea); Hyperlipidemia, unspecified hyperlipidemia type; Family history of colon cancer requiring screening colonoscopy Start: 01-08-2025 End: 01-08-2025 Refill Rudi Vyas Rosie FLORES Work Phone: [facility] Comment on above: Essential (primary) hypertension; Hyperlipidemia, unspecified Start: 12-20-2024 End: 12-20-2024 Postop follow up visit related to original px Karen VILLARREAL Work Phone: [facility] Comment on above: S/P left knee arthro scopy (Primary Dx) Start: 12-20-2024 End: 12-20-2024 ambulatory KAREN CASTELLANO Not Available Start: 12-20-2024 End: 12-20-2024 Bamboo flowsheet Karen VILLARREAL Work Phone: [facility] Start: 12-20-2024 End: 12-20-2024 Bamboo flowsheet Karen VILLARREAL Work Phone: [facility] Start: 11-22-2024 End: 11-22-2024 Bamboo flowsheet Karen VILLARREAL Work Phone: [facility] Start: 11-22-2024 End: 11-22-2024 Bamboo flowsheet Karen VILLARREAL Work Phone: [facility] Start: 11-22-2024 End: 11-22-2024 Postop follow up visit related to original px Karen VILLARREAL Work Phone: [facility] Comment on above: S/P left knee arthro scopy (Primary Dx) Start: 11-22-2024 End: 11-22-2024 ambulatory KAREN CASTELLANO Not Available Start: 11-15-2024 End: 11-15-2024 Telephone encounter Dav Nelson SKY DIVER Work Phone: [facility] Start: 11-09-2024 End: 11-09-2024 ambulatory Surendra Silva Facility:[facility] Start: 11-08-2024 End: 11-08-2024 Refill Dav Nelson [employer] Work Phone: [facility] Comment on above: Acute medial meniscu s tear, left, initial encounter (Primary Dx) Start: 10-23-2024 ambulatory [facility] Facility:[facility] Start: 10-22-2024 End: 10-22-2024 Patient encounter procedure Dav Nelson NP Work Phone: [facility] Comment on above: Pre-op exam (Primary Dx) Start: 10-22-2024 End: 10-22-2024 Preprocedural examination done Dav Nelson NP Work Phone: [facility] Start: 10-22-2024 End: 10-22-2024 ambulatory DAV NELSON Not Available Start: 10-22-2024 End: 10-22-2024 Bamboo flowsheet Dav Nelson SK[employer]IVER Work Phone: [facility] Start: 10-22-2024 End: 10-22-2024 Bamboo flowsheet Dav Nelson SK[employer]IVER Work Phone: [facility] Start: 09-26-2024 End: 09-26-2024 Office outpatient visit 25 minutes Jr. Brenda iMddleton DO Work Phone: [facility] Comment on above: Acute pain of left k nee (Primary Dx); Acute medial meniscus tear, left, initial encounter Start: 09-26-2024 End: 09-26-2024 ambulatory BRENDA SUMMERS Not Available Start: 09-25-2024 End: 09-25-2024 Office outpatient visit 25 minutes Lisa Snatiago DO Work Phone: [facility] Comment on above: EMIL (obstructive sle ep apnea) (Primary Dx); Hypoxia; Sleep deprivation; Hypersomnia; Snoring Start: 09-25-2024 End: 09-25-2024 ambulatory LISA SANTIAGO Not Available Start: 09-25-2024 End: 09-25-2024 Bamboo flowsheet Lisa Santiago DO Work Phone: [facility] Start: 09-25-2024 End: 09-25-2024 Bamboo flowsheet Lisa Santiago DO Work Phone: [facility] Start: 08-14-2024 End: 08-14-2024 Refill Rudi Vyas Rosie DO Work Phone: [facility] Comment on above: Other male erectile dysfunction Start: 08-11-2024 End: 08-11-2024 Refill Rudi Velez DO Work Phone: [facility] Comment on above: Essential hypertensi on Start: 07-12-2024 End: 07-12-2024 ambulatory [facility] Start: 07-12-2024 End: 07-12-2024 Office outpatient visit 25 minutes Rudi Lilliam Velez DO Work Phone: [facility] Comment on above: Essential hypertensi on (Primary Dx); EMIL (obstructive sleep apnea); Hyperlipidemia, unspecified hyperlipidemia type; Class 3 severe obesity due to excess calories with serious comorbidity and body mass index (BMI) of 40.0 to 44.9 in adult ([facility]); Acute medial meniscus tear of left knee, subsequent encounter; Encounter for immunization Start: 07-12-2024 End: 07-12-2024 ambulatory [facility] Start: 07-08-2024 End: 07-08-2024 Refill Rudi Velez DO Work Phone: [facility] Comment on above: Essential (primary) hypertension; Hyperlipidemia, unspecified Start: 04-12-2024 End: 04-12-2024 Refill Rudi Orrs DO Work Phone: [facility] Comment on above: Other male erectile dysfunction Start: 04-08-2024 End: 04-08-2024 Refill Rudi Orrs DO Work Phone: [facility] Comment on above: Essential (primary) hypertension Start: 02-10-2024 End: 02-10-2024 Refill Rudi Ganhas DO Work Phone: [facility] Comment on above: Other male erectile dysfunction; Essential hypertension Start: 01-08-2024 End: 01-08-2024 Refill Rudi Orrs DO Work Phone: [facility] Comment on above: Hyperlipidemia, unsp ecified; Essential (primary) hypertension Start: 01-02-2024 End: 01-02-2024 Office outpatient visit 25 minutes Rudi Orrs DO Work Phone: [facility] Comment on above: Essential hypertensi on (Primary Dx); EMIL (obstructive sleep apnea); Tear of lateral meniscus of left knee, current, initial encounter Start: 12-12-2023 End: 12-12-2023 Refill Rudi Orrs DO Work Phone: [facility] Comment on above: Other male erectile dysfunction Start: 11-10-2023 End: 11-10-2023 Refill Rudi Ganhas DO Work Phone: [facility] Comment on above: Other male erectile dysfunction Start: 11-07-2023 End: 11-23-2023 Telephone encounter Rudi Orrs DO Work Phone: [facility] Start: 10-06-2023 End: 10-07-2023 Refill Rudi Ganhas DO Work Phone: [facility] Medicine Family Medicine Comment on above: Essential hypertensi on; Essential (primary) hypertension Start: 10-04-2023 End: 10-04-2023 Refill Rudi Velez DO Work Phone: [facility] - Family Medicine Comment on above: Hyperlipidemia, unsp ecified; Other male erectile dysfunction Start: 09-03-2023 End: 09-04-2023 Refill Rudi Velez DO Work Phone: [facility] Comment on above: Other male erectile dysfunction Start: 08-08-2023 Refill Rudi Velez D O Work Phone: [facility] Comment on above: Hyperlipidemia, unsp ecified Start: 07-11-2023 Refill Rudi Collier O Work Phone: [facility] Internal Medicine Family [facility] Comment on above: Essential (primary) hypertension Start: 05-25-2023 End: 05-25-2023 Encounter for general adult medical examination with abnormal findings Rudi Velez DO Work Phone: [facility] Work Phone: Start: 05-25-2023 End: 05-25-2023 Periodic preventive med est patient 40-64yrs Rudi Velez DO Work Phone: [facility] Internal [facility] Comment on above: Abnormal wellness ex am (Primary Dx); EMIL (obstructive sleep apnea); Encounter for screening for malignant neoplasm of prostate; Essential hypertension; Hyperlipidemia, unspecified hyperlipidemia type Start: 02-02-2022 End: 02-03-[address] RUDI VELEZ Facility:[facility] Procedures Date Procedure Procedure Detail Performing Clinician Start: 01-29-2025 Adult depression scr eening assessment Rudi Velez DO Work Phone: Start: 09-26-2024 Radiologic examinati on knee 1/2 views Jr. Brenda Middleton DO Work Phone: Start: 07-12-2024 Adult depression scr eening assessment Rudi Velez DO Work Phone: Start: 05-25-2023 Adult depression scr eening assessment Rudi Velez DO Work Phone: Plan of Treatment Date Care Activity Detail Author Start: 08-16-2032 DTaP,Tdap and Td Vaccines (2 - Td or Tdap) DTaP,Tdap and Td Vaccines (2 - Td [facility] Tdap) [facility] Start: 01-29-2026 Adult BMI Screening [facility] Screen ing [facility] Start: 01-29-2026 Depression Screening [facility] Scre [facility]ing [facility] Start: 01-29-2026 Tobacco Screening [facility]ening [facility] Start: 09-23-2025 End: 09-23-2025 Patient encounter procedure 09/23/2025 3:45 PM EDT Office Visit [facility] [address] [place] [id number] Lisa Santiago DO [address] [place], [place] [id number] [facility] Start: 07-12-2025 Adult BMI Screening [facility] Start: 07-12-2025 Depression Screening [facility] Scre [facility]ing [facility] Start: 07-12-2025 Tobacco Screening [facility]ening [facility] Start: 05-27-2025 End: 01-29-2026 Colonoscopy Colonoscopy GI Routine Family history of colon cancer requiring screening colonoscopy Expected: 05/27/2025, Expires: 01/29/2026 [facility] Phone: Comment on above: Expected: 05/27/2025 , Expires: 01/29/2026 Start: 01-29-2025 End: 01-29-2025 Patient encounter procedure 01/29/2025 3:00 PM EDT Office Visit [facility] [address] [place] [address] Rudi Velez DO [address] [place] [address] [facility] Start: 01-21-2025 COVID-19 Vaccine ( season) COVID-19 Vaccine ( season) [facility] Start: 01-21-2025 Influenza vaccination Influenza Vacc ine [facility] Start: 01-01-2025 Adult BMI Screening Adult BMI Screen ing [facility] Start: 01-01-2025 Tobacco Screening Tobacco Screening [facility] Start: 12-20-2024 End: 12-20-2024 Patient encounter procedure [facility] Comment on above: S/P left knee arthro scopy (Primary Dx) Start: 11-22-2024 End: 11-22-2024 Patient encounter procedure [facility] Comment on above: S/P left knee arthro scopy (Primary Dx) Start: 10-22-2024 End: 10-22-2024 Patient encounter procedure [facility] Comment on above: Arrived Start: 09-26-2024 End: 09-26-2024 Patient encounter procedure 09/26/2024 2:45 PM EDT Office Visit [facility] [address] [place] [address] Jr. Brenda Middleton, DO [address] [place] [address] [facility] Start: 09-25-2024 End: 09-25-2024 Patient encounter procedure 09/25/2024 3:45 PM EDT Office Visit [facility] [address] [place] [address] Lisa Santiago DO [address] [place] [address] Arrived [facility] Comment on above: Arrived Start: 07-12-2024 End: 07-12-2024 Patient encounter procedure 07/12/2024 3:30 PM EST Office Visit [facility] [address] [place] [phone] Rudi Velez DO [address] [place] [address] [facility] Start: 07-12-2024 End: 07-12-2025 MR Knee WO contrast MR knee left without contrast Imaging Routine Acute medial meniscus tear of left knee, subsequent encounter Expected: 07/12/2024, Expires: 07/12/2025 [facility] Work Phone: Comment on above: Expected: 07/12/2024 , Expires: 07/12/2025 Start: 05-29-2024 End: 05-29-2024 Patient encounter procedure 05/29/2024 2:00 PM EST Office Visit [facility] [address] [place] [phone] Rudi Velez DO [address] [place] [address] [facility] - Family Medicine Start: 05-25-2024 Adult BMI Screening Adult BMI Screen ing [facility] Start: 05-25-2024 Depression Screening Depression Scre ening [facility] Start: 05-25-2024 Tobacco Screening Tobacco Screening [facility] Start: 01-22-2024 COVID-19 Vaccine ( season) COVID-19 Vaccine ( season) [facility] Start: 01-22-2024 COVID-19 Vaccine ( season) COVID-19 Vaccine ( season) [facility] Start: 01-22-2024 Influenza vaccination Influenza Vacc ine [facility] Start: 01-02-2024 End: 01-02-2024 Patient encounter procedure 01/02/2024 3:00 PM EDT Office Visit [facility] [address] [place] [phone] Rudi Velez, [address] [place] [address] [facility] Start: 01-21-2023 COVID-19 Vaccine ( season) COVID-19 Vaccine ( season) [facility] Start: 01-21-2023 Influenza vaccination Influenza Vacc ine [facility] Start: 01-28-1984 Adult BMI Follow Up Plan Adult BMI Follow Up Plan [facility] End: 01-01-2025 Basic metabolic 2000 panel - Serum or Plasma Basic Metabolic Panel Lab Routine Essential hypertension 1 Occurrences starting 01/02/2024 until 01/01/2025 [facility] Work Phone: Comment on above: 1 Occurrences starti ng 01/02/2024 until 01/01/2025 End: 07-12-2025 Comprehensive metabolic 2000 panel - Serum or Plasma Comprehensive metabolic panel Lab Routine Hyperlipidemia, unspecified hyperlipidemia type 1 Occurrences starting 07/12/2024 until 07/12/2025 [facility] Comment on above: 1 Occurrences starti ng 07/12/2024 until 07/12/2025 End: 07-12-2025 Lipid 1996 panel - Serum or Plasma Lipid profile Lab Routine Hyperlipidemia, unspecified hyperlipidemia type 1 Occurrences starting 07/12/2024 until 07/12/2025 [facility] Comment on above: 1 Occurrences starti ng 07/12/2024 until 07/12/2025 Immunizations Immunization Date Immunization Notes Care Provider Fa cility 07-12-2024 influenza, seasonal, injectable, preservative free Rudi Velez DO Work Phone: [facility] 07-12-2024 Immunization, In Clinic,; Translations: [Drug or medicament (substance)] Rudi Velez DO Work Phone: [facility] 07-12-2024 influenza virus vaccine, unspecified formulation Rudi Velez DO Work Phone: [facility] 08-16-2022 tetanus toxoid, redu tanvir diphtheria toxoid, and acellular pertussis vaccine, adsorbed Rudi Velez DO Work Phone: [facility] 02-26-2021 influenza, seasonal, injectable Rudi Velez DO Work Phone: [facility] 02-26-2021 influenza virus vaccine, unspecified formulation Rudi Orrs DO Work Phone: [facility] 03-06-2020 influenza, intraderm al, quadrivalent, preservative free, injectable Rudi Orrs DO Work Phone: [facility] 02-05-2020 influenza, injectabl e, quadrivalent, preservative free Rudi Orrs DO Work Phone: [facility] 12-05-2018 zoster vaccine recombinant Rudi Orrs DO Work Phone: [facility] 06-08-2018 zoster vaccine recombinant Rudi Ganhas DO Work Phone: [facility] 02-20-2018 zoster vaccine recombinant Rudi Velez DO Work Phone: [facility] 02-21-2016 influenza, seasonal, injectable Rudi Orrs DO Work Phone: [facility] 03-31-2015 influenza, seasonal, injectable, preservative free Rudi Orrs DO Work Phone: [facility] 04-15-2009 novel [id number], preservative-free, injectable Rudi Velez DO Work Phone: [facility] Payers Date Payer Category Payer Managed Care Other (unspecified) [employer] [id number] 2022 Private Health Insurance [id number] 2021 Unknown [id number] 1966 Unknown [id number]. [id number] 1966 Unknown [id number] [id number]. 2.1286 1966 Unknown [id number] [id number]. 2.718 1966 Unknown [id number] [id number]. [id number] 1966 Unknown [id number] [id number]. 2.1259 1966 Unknown [id number] [id number]. 2.1259 1966 Unknown [id number] [id number]. 2.1259 1966 Unknown [id number] [id number]. 2.1259 1966 Unknown [id number] [id number]. 2.1259 1966 Unknown [id number] [id number]. 2.1259 1966 Unknown [id number] [id number]. 2.1286 1966 Unknown [id number] [id number]. 2.1286 1959 Unknown [id number] Social History Date Type Detail Facility Start: 08-16-2022 End: 09-26-2024 Tobacco smoking status NHIS Never smoked tobacco [facility] Start: 08-16-2022 End: 09-26-2024 Tobacco use and exposure Smokeless tobacco non-user [facility] Start: 05-25-2023 End: 01-29-2025 Alcohol intake Current drinker of alcohol (finding) [facility] Start: 07-03-2020 End: 05-25-2023 Alcohol intake [facility] Start: 07-03-2020 End: 05-25-2023 Tobacco use panel [facility] Adolescent depressio n screening assessment 0 [facility] Start: 1965 Sex Assigned At Not on file P [employer] [facility] How hard is it for y ou to pay for the very basics like food, housing, medical care, and heating Not very hard [facility] Start: 12-26-2014 Sex Male (finding) [facility] Tobacco smoking stat [facility] Tobacco smoking consumption unknown [facility] Healthcare Clinical Notes 05-25-2023 to 01-29-2025 Rudi Velez, - 01/29/2025 3:00 PM EDPHIL Arriaga - 12/20/2024 2:30 PM EDPHIL Arriaga - 11/22/2024 1:15 PM EDTPatient Uri Nelson NP - 10/22/2024 3:00 PM EDT Note Date & Type Note Facility 01-29-2025 History of Presen t illness Narrative IM PROGRESS NOTE Patient - Stacy Boles [facility] 60 [facility] 1965 [id number] ASSESS[facility] & PLAN 1. Essential hypertension (Primary) [...] cancer as well. His last colonoscopy was in 2018. Exam BP 126/78 (BP Site: Left Arm, BP Postition: Sitting, BP CUFF SIZE: M (9-13 inches)) Pulse 62 Temp 36.2 C (97.2 F) (Tympanic) Resp 18 Ht 175.3 cm (5' 9.02 ) Wt 127.9 kg (282 lb) SpO2 98% BMI 41.62 kg/m Physical Exam Vitals reviewed. Constitutional: General: [...] ml/min/1.73sq.m Final Other Testing No results found. Rudi Velez DO., [facility] Office: [phone] documented in this encounter [facility] 12-20-2024 History of Presen t illness Narrative Images from the original note were not included. Orthopedic Office note: NAME: Marlo Boles : 1965 (EST PT) - P/O (L) KNEE SCOPE @[facility] 11/09/24 (4 WKS, 3 DAYS) RTW 11/29/24 PT WOULD LIKE TO DISCUSS RESTRICTIONS WITH ACTIVITY. DOING WELL. PRESENTS AMBULATING WITHOUT ASSISTANCE. ADMITS INTERMITTENT ANTERIOR MEDIAL SORENESS WITH PROLONGED AMBULATION. DENIES SWELLING / N/T. DENIES WEAKNESS / STIFFNESS. GOOD ROM. DENIES WAKING HS. NO PAIN MEDS. DENIES RECENT ICING / ELEVATING. Left Knee Exam Left knee exam is normal. Tenderness Left knee tenderness location: Compartments soft. Range of Motion The patient has normal left knee ROM. Left knee flexion: tightness on terminal flexion. Tests Varus: negative Valgus: negative Other Erythema: absent Scars: present (Portal scars well healed) Sensation: normal Pulse: present Swelling: mild Effusion: no effusion present Comments: Operative lower extremity was noted to be neurovascularly intact. Patient was able to motor feet, toes and ankles in all anatomic planes bilaterally with 5 out of 5 strength. Operative knee's patellar tracking was optimal and quad/ham strength was 5 out of 5 to operative lower extremity. There was no varus valgus, anterior-posterior, or rotatory instability noted to the operative knee. Swelling was well controlled, patella was not ballotable and compartments were soft to the operative lower extremity. Dorsalis pedis and posterior tibial pulses were present and equal bilaterally. There was no evidence of infection or ascending lymphangitis to operative lower extremity. Sensation to light touch was intact to all dermatomes to bilateral lower extremities. Negative Homans and negative Carlos were noted bilaterally to lower extremities. Incision was healing without evidence of infection No orders of the defined types were placed in this encounter. Procedures Results ICD-10-CM 1. S/P left knee arthroscopy Z98.890 CDMTP-4, CPMFC 3/4, Partial medial meniscotomy, excision of plice. CPLFP-2 Assessment & Plan Status post left knee arthroscopy Minimal soreness in the medial knee occurs with overactivity but no symptoms are present during everyday activities. Progress and tolerance to symptoms are satisfactory. Arthritic changes in the knee were discussed. If symptoms persist or worsen, intra-articular injection will be considered. Follow-up: Follow-up on an as needed basis. PROCEDURE Procedure Performed Left knee arthroscopy Doing well Questions answered in laymen terms at the bedside. The diagnosis, home exercise plan and any ongoing restrictions/ recommendations reviewed. If unable to be reached in office, I recommend evaluation at nearest Emergency Room if any symptoms worsened or new symptoms develop for requiring urgent evaluation. Visit was preformed using [employer] speech recognition. documented in this encounter [facility] 11-22-2024 History of Presen t illness Narrative Images from the original note were not included. Orthopedic Office note: NAME: Marlo Boles : 1965 (EST PT) - 1ST P/O (L) KNEE SCOPE @[facility] 11/09/24 (1 WK, 6 DAYS) PRESENTS AMBULATING WITHOUT ASSISTANCE. DOING WELL. SOME MINIMAL DISCOMFORT WITH CERTAIN MOVEMENTS. NO PAIN MEDS. DENIES WAKING HS. MINIMAL SWELLING. GOOD STRENGTH / ROM - IMPROVING DAILY. LIMITED SUTURES INTACT, REMOVED TODAY. NO S/S OF INFECTION. PT WOULD LIKE TO DISCUSS ACTIVITY LEVELS. Left Knee Exam Left knee exam is normal. Tenderness Left knee tenderness location: Compartments soft. Range of Motion The patient has normal left knee ROM. Left knee flexion: tightness on terminal flexion. Other Erythema: absent Scars: present (Portals well healing, sutures removed, no erythema, drainge or discharge, no dehisence) Sensation: normal Pulse: present Swelling: mild Effusion: effusion (consistent with surgery) present Comments: Operative lower extremity was noted to be neurovascularly intact. Patient was able to motor feet, toes and ankles in all anatomic planes bilaterally with 5 out of 5 strength. Operative knee's patellar tracking was optimal and quad/ham strength was 5 out of 5 to operative lower extremity. There was no varus valgus, anterior-posterior, or rotatory instability noted to the operative knee. Swelling was well controlled, patella was not ballotable and compartments were soft to the operative lower extremity. Dorsalis pedis and posterior tibial pulses were present and equal bilaterally. There was no evidence of infection or ascending lymphangitis to operative lower extremity. Sensation to light touch was intact to all dermatomes to bilateral lower extremities. Negative Homans and negative Carlos were noted bilaterally to lower extremities. Incision was healing without evidence of infection No orders of the defined types were placed in this encounter. Procedures Results ICD-10-CM 1. S/P left knee arthroscopy Z98.890 CDMTP-4, CPMFC 3/4, Partial medial meniscotomy, excision of plice. CPLFP-2 Assessment & Plan Post-operative status following left knee arthroscopy. He is demonstrating satisfactory recovery, expressing contentment with his progress. He reports an improvement in his range of motion compared to the pre-surgical state. He wishes to resume work on 11/29/2024, without any restrictions. 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 He has the option to apply ice and elevate his leg as necessary. A detailed discussion regarding his surgical procedure was conducted at the bedside, during which he expressed satisfaction with his progress and acknowledged the enhanced range of motion post-surgery. Follow-up: A follow-up appointment is scheduled in 3 weeks to assess his ongoing recovery. PROCEDURE Procedure Performed Left knee arthroscopy Questions answered in laymen terms at the bedside. The diagnosis, home exercise plan and any ongoing restrictions/ recommendations reviewed. If unable to be reached in office, I recommend evaluation at nearest Emergency Room if any symptoms worsened or new symptoms develop for requiring urgent evaluation. Visit was preformed using [employer] speech recognition. documented in this encounter [facility] 11-22-2024 Instructions PHIL Rivera - 11/22/2024 1:15 PM EDT Discussed surgery for knee arthroscopy: Recommend no deep squatting, no pivoting or rotation... Recommend no running, jumping or high impact.. Avoid kneeling Cont with ice and elevation, 20 minutes on and 20 minutes off for 1 hour 2-3 times day. Be mindful of swelling pending increasing activities... consider sleeve or mitchell wrap if up for more than 10 mins documented in this encounter [facility] 11-15-2024 Telephone encount er Note error [facility] 11-15-2024 Miscellaneous Notes Formattin g of this note might be different from the original. 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 Age 59 Years 1965 Sex MALE Language Hungarian PCP RUDI VELEZ Marital Status Phone Med Service Ambulatory Surgery Acct# Arrival 11/09/2024 12:11:14 Visit Reason SURGERY - LEFT KNEE ARTHROSCOPY Acuity LOS 043 06:06 Address: [address] [place] [address] Comment: PROVIDER INFORMATION VITALS INFORMATION Vital Sign Triage Latest Temp Oral Temp Temporal Temp Intravascular Temp Axillary Temp Rectal 02 Sat 94 % 98 % Respiratory Rate Peripheral Pulse Rate Apical Heart Rate Blood Pressure / 77 mmHg / 80 mmHg Comment: MEDICAL INFORMATION Allergy Info: No Known Medication Allergies Prescriptions Given: amLODIPine (amLODIPine 10 mg oral tablet) Oral (given by mouth) every day. aspirin (aspirin 81 mg oral delayed release tablet) 1 tab(s) Oral (given by mouth) every day. atorvastatin (atorvastatin 20 mg oral tablet) 1 tab(s) Oral (given by mouth) Tuesday, Tuesday and Tuesday. chlorthalidone (chlorthalidone 25 mg oral tablet) 1 tab(s) Oral (given by mouth) every day. losartan (losartan 100 mg oral tablet) 1 tab(s) Oral (given by mouth) every day. potassium chloride (Potassium Chloride (Eqv-K-Tab) 20 mEq oral tablet, extended release) 1 tab(s) Oral (given by mouth) every day. Medication List: Medications to Continue That Have Not Changed Other Medications amLODIPine (amLODIPine 10 mg oral tablet) Oral (given by mouth) every day. aspirin (aspirin 81 mg oral delayed release tablet) 1 tab(s) Oral (given by mouth) every day. atorvastatin (atorvastatin 20 mg oral tablet) 1 tab(s) Oral (given by mouth) Tuesday, Tuesday and Tuesday. chlorthalidone (chlorthalidone 25 mg oral tablet) 1 tab(s) Oral (given by mouth) every day. losartan (losartan 100 mg oral tablet) 1 tab(s) Oral (given by mouth) every day. potassium chloride (Potassium Chloride (Eqv-K-Tab) 20 mEq oral tablet, extended release) 1 tab(s) Oral (given by mouth) every day. Medications to Continue That Have Not Changed Other Medications amLODIPine (amLODIPine 10 mg oral tablet) Oral (given by mouth) every day. aspirin (aspirin 81 mg oral delayed release tablet) 1 tab(s) Oral (given by mouth) every day. atorvastatin (atorvastatin 20 mg oral tablet) 1 tab(s) Oral (given by mouth) Tuesday, Tuesday and Tuesday. chlorthalidone (chlorthalidone 25 mg oral tablet) 1 tab(s) Oral (given by mouth) every day. losartan (losartan 100 mg oral tablet) 1 tab(s) Oral (given by mouth) every day. potassium chloride (Potassium Chloride (Eqv-K-Tab) 20 mEq oral tablet, extended release) 1 tab(s) Oral (given by mouth) every day. Medications to Continue That Have Not Changed Other Medications amLODIPine (amLODIPine 10 mg oral tablet) Oral (given by mouth) every day. aspirin (aspirin 81 mg oral delayed release tablet) 1 tab(s) Oral (given by mouth) every day. atorvastatin (atorvastatin 20 mg oral tablet) 1 tab(s) Oral (given by mouth) Tuesday, Tuesday and Tuesday. chlorthalidone (chlorthalidone 25 mg oral tablet) 1 tab(s) Oral (given by mouth) every day. losartan (losartan 100 mg oral tablet) 1 tab(s) Oral (given by mouth) every day. potassium chloride (Potassium Chloride (Eqv-K-Tab) 20 mEq oral tablet, extended release) 1 tab(s) Oral (given by mouth) every day. Comment: Lab and Radiology Results Laboratory or Other Results This Visit (last charted value for your 11/09/2024 visit) No Laboratory or Other Results This Visit DIET & ACTIVITY Patient Activity Level: Patient Diet: Patient Activity Restrictions: DISCHARGE INFORMATION Discharge Disposition: Discharge Location: DEPART REASON INCOMPLETE INFORMATION PATIENT EDUCATION INFORMATION Instructions: Stepanic Arthroscopy Discharge Instructions (MHMPATRICK) Follow up: With: Address: When: Karen Castellano [address] [place] [address], [address] [place] [address] Business (1) 11/22/2024 1:15 PM With: Address: When: RUDI Truj[address] [address] Business (1) DIAGNOSIS Acute pain of left knee Comment: PHYS DOC NOTES [facility] 11-08-2024 Telephone encount er Note Post op pain rx. PDMP reviewed [facility] 11-08-2024 Miscellaneous Notes Formattin g of this note might be different from the original. Post op pain rx. PDMP reviewed documented in this encounter [facility] 10-22-2024 History of Presen t illness Narrative Images from the original note were not included. GENERAL HISTORY AND PHYSICAL: NAME: Marlo Boles : 1965 HISTORY OF PRESENT ILLNESS: Marlo Boles is an 59 y.o. @ male. Here for surgery instructions left knee scope November 09 @ [facility]. PAST MEDICAL HISTORY: Past Medical History: Diagnosis Date Hypercholesterolemia (CMS/HCC) Hypertension (CMS/HCC) PAST SURGICAL HISTORY: Past Surgical History: Procedure Laterality Date SPINE SURGERY C4, C5, C6 - plates and screws SOCIAL HISTORY: Social History Occupational History Not on file Tobacco Use Smoking status: Never Smokeless tobacco: Never Substance and Sexual Activity Alcohol use: Yes Drug use: Not Currently Sexual activity: Not on file ALLERGIES: No Known Allergies MEDICATIONS: Current Outpatient Medications Medication Instructions amLODIPine (NORVASC) 10 mg, Every morning atorvastatin (Lipitor) 20 MG tablet 1 tablet, Every morning chlorthalidone (HYGROTON) 25 mg, Every morning losartan (COZAAR) 100 mg, Every morning potassium chloride CR (K-Tab) 20 MEQ ER tablet 20 mEq, Every morning vardenafil (LEVITRA) 20 mg, Every morning REVIEW OF SYSTEMS: Review of Systems Constitutional: Negative for fatigue, fever and unexpected weight change. Eyes: Negative for redness and visual disturbance. Gastrointestinal: Negative for abdominal pain. Denies Indigestion Musculoskeletal: See note: Skin: Negative for color change and rash. Neurological: Negative for light-headedness and numbness. Vitals: Body mass index is 39.13 kg/m . PHYSICAL EXAM: Physical Exam Constitutional: General: He is not in acute distress. Appearance: Normal appearance. HENT: Head: Normocephalic and atraumatic. Right Ear: External ear normal. Left Ear: External ear normal. Nose: Nose normal. No rhinorrhea. Mouth/Throat: Mouth: Mucous membranes are moist. Pharynx: No posterior oropharyngeal erythema. Eyes: Extraocular Movements: Extraocular movements intact. Conjunctiva/sclera: Conjunctivae normal. Cardiovascular: Rate and Rhythm: Normal rate and regular rhythm. Pulses: Normal pulses. Heart sounds: No murmur heard. Pulmonary: Effort: Pulmonary effort is normal. No respiratory distress. Breath sounds: Normal breath sounds. No wheezing or rhonchi. Abdominal: Palpations: Abdomen is soft. Tenderness: There is no abdominal tenderness. Musculoskeletal: Cervical back: Normal range of motion and neck supple. Lymphadenopathy: Cervical: No cervical adenopathy. Skin: General: Skin is warm and dry. Findings: No erythema or rash. Neurological: General: No focal deficit present. Mental Status: He is alert and oriented to person, place, and time. Psychiatric: Mood and Affect: Mood normal. Behavior: Behavior normal. No orders of the defined types were placed in this encounter. ASSESSMENT: ICD-10-CM 1. Pre-op exam Z01.818 PLAN: This patient presents for preadmission testing for upcoming surgery. Complete history with medical, surgery, and current allergy and medication list obtained. Consent for surgery signed and witnessed after verbal consent to perform surgery received. All questions answered and proposed surgery scheduled. SURGERY INSTRUCTIONS October PRE OP TESTING October @ 11:30 CRUTCHES DISPENSED TODAY Follow up in about 31 days (around 11/22/2024) for Post-Op November 22 @ 1:15 with Frederick Castellano in [facility]. documented in this encounter [facility] 09-26-2024 History of Presen t illness Narrative Images from the original note were not included. NAME: Marlo Boles : 1965 HISTORY OF PRESENT ILLNESS: NEW PT Marlo Boles is an 59 y.o. @ male. (NEW PT) (DR. VELEZ REFERRAL) - (L) KNEE DISCOMFORT S/P INJURY 02/2023 (~1 YR, 8 MONTHS) - JUMPED AND LANDED WITH LEG HYPEREXTENDED - WORSENING DISCOMFORT SINCE XRAY (L) KNEE TODAY, 09/26/24 IN [facility] MRI (L) KNEE 08/03/24 @[facility] NO MDP / PREDNISONE NO CORTISONE INJ NO PT NO PAIN MGMT ADMITS INTERMITTENT ANTERIOR MEDIAL / INFERIOR DISCOMFORT - WORSE WITH WB / PIVOTING. DENIES RADIATION. DENIES SWELLING. DENIES N/T. SOME INSTABILITY. DENIES BUCKLING / POPPING / GRINDING. LIMITED ROM D/T STIFFNESS. NOTES POSTERIOR STIFFNESS / FULLNESS. NO PAIN MEDS RECENTLY - TRIED IBU S/P INJURY - NO RELIEF. DENIES ICING / HEATING. TRIED ICY HOT - NO RELIEF. HAS BEEN WEARING KNEE SLEEVE AT WORK - WITH RELIEF. TRIED HEP (PCP) NO RELIEF. PRESENTS WEARING KNEE SLEEVE / BRACE? ADMITS INTERMITTENT ACHING DISCOMFORT - WORSE WITH WB / USE. ADMITS INSTABILITY. CONTINUES HEP? Lower Extremity Issue The symptoms are aggravated by movement. PAST MEDICAL HISTORY: No past medical history on file. PAST SURGICAL HISTORY: No past surgical history on file. SOCIAL HISTORY: Social History Occupational History Not on file Tobacco Use Smoking status: Not on file Smokeless tobacco: Not on file Substance and Sexual Activity Alcohol use: Not on file Drug use: Not on file Sexual activity: Not on file ALLERGIES: No Known Allergies HOME MEDICATIONS: No current outpatient medications REVIEW OF SYSTEMS: Review of Systems Vitals: There is no height or weight on file to calculate BMI. Tobacco Use: Low Risk (07/12/2024) Received from [employer] Patient History Smoking Tobacco Use: Never Smokeless Tobacco Use: Never Passive Exposure: Not on file Alcohol Use: Not on file PHYSICAL EXAM: Knee Musculoskeletal Exam Gait Gait is normal. Limp: left Inspection Leg length disparity: no discrepancy Left Erythema: none Effusion: mild Edema: none Ecchymosis: none Deformity: none Alignment: normal Palpation Left Increased warmth: none Masses: none Tenderness: present Medial joint line: moderate Range of Motion Left Left knee range of motion is normal and full. Active extension: 0 Passive extension: 0 Active flexion: 125 Passive flexion: 125 Range of motion additional comments: + PAIN ON TERMINAL FLEXION AND EXTENSION Strength Left Extension: 5/5. Extension is affected by pain. Flexion: 5/5. Flexion is affected by pain. Instability Left Instability signs: none - stable Varus stress grade: normal Valgus stress grade: normal Anterior drawer: normal Medial Luis test: positive Lateral Luis test: negative Neurovascular Left Left knee neurovascular exam is normal. Pulses - PT: normal Posterior tibial: 2+ Capillary refill: warm and well-perfused Special Signs Left Left knee special signs are normal. Patellar apprehension: none General Constitutional: appears stated age Labored breathing: no Psychiatric: normal mood and affect Neurological: alert Skin: intact Lymphadenopathy: none IMAGING: Procedures No orders of the defined types were placed in this encounter. ASSESSMENT: No diagnosis found. PLAN: We discussed his case with him at length including both surgical and nonsurgical treatment options and the risks and benefits associated with both including but not limited to arthroscopy in the light of arthritis with a medial meniscus tear and arthroplasty. We will proceed with a diagnostic and operative arthroscopy of his left knee at his request for well understanding that there is not much we can do for arthritis through the arthroscopy and were mainly going in to clean up the medial meniscus tear. He understands that if this does not work we will proceed with a total knee arthroplasty. We'll see them back on the day of surgery for diagnostic and operative arthroscopy of his left knee. Patient fully understands risks and benefits of said surgical program. Questions answered in laymen terms at the bedside. The diagnosis, home exercise plan and any ongoing restrictions/ recommendations reviewed. If unable to be reached in office, I recommend evaluation at nearest Emergency Room if any symptoms worsened or new symptoms develop for requiring urgent evaluation. documented in this encounter [facility] 09-25-2024 History of Presen t illness Narrative Chief Complaint Patient presents with Sleep Apnea Subjective Marlo Boles, 59 y.o., male is here for follow up for sleep apnea. He is wearing his machine nightly. He denies any issues with his machine. He did have a water leak but it is fixed now. Pt states that he is getting about 6.5 hours of sleep with the machine. Pt states that he feels more refreshed in the morning. He is not getting tired throughout the day. He is not having any new issues with the mask or the machine He uses Rebekah. He does not feel like he is moving around a lot. He does not allow enough time to sleep. He does not go to bed in enough time to allow more hours of sleep. No past medical history on file. No past surgical history on file. No family history on file. Social History Tobacco Use Smoking status: Never Smokeless tobacco: Never Substance Use Topics Alcohol use: Not on file Allergies: Patient has no known allergies. General: No fever or chills HEENT: No nasal congestion or runny nose Pulmonary: No shortness of breath or cough Cardiovascular: No chest pain or palpitations GI: No nausea or vomiting : No dysuria or hematuria Musculoskeletal: No new aches or pains or muscle weakness Infectious: no recurrent fevers or infections Dermatologic: No rashes or skin lesions Neurologic: No new headaches or dizziness other than in HPI Vitals: 09/25/24 1558 BP: 132/86 Pulse: 62 SpO2: 96% Body mass index is 39.13 kg/m . Weight: 265 lb Neurologic exam: Mental status: Awake, alert to person, place and time. Recent and remote memory are intact. Attention and concentration are normal. Fund of knowledge is appropriate for level of education. HEENT: NC/AT Cranial nerves: CN II: Visual acuity is normal. Visual lorenz full to confrontation. CN III, IV, : pupils equal round and reactive to light. Extraocular movements intact. No ptosis present. CN V: Facial sensation is normal. CN VII: Full and symmetric facial movement. CN VIII: Hearing is normal to finger rub bilaterally: CN IX and X: Palate elevates symmetrically. Normal gag reflex. CN XI: Shoulder shrug is normal bilaterally. CN XII: Tongue is midline without atrophy or fasciculation. Speech: Clear and fluent no aphasia or dysarthria Pronator drift: Negative bilateral upper extremity Coordination: Intact, no signs of dysmetria Good finger to nose and rapid alternating movements Sensory: Sensation is intact to light, temperature and vibratory touch throughout four extremities. Motor: LUE 5/5 RUE 5/5 LLE 5/5 RLE 5/5 Tone: Physiologic, no tremor, bradykinesia or rigidity DTR: Biceps, BR 2/4 Patellar 2/4 Gait: Normal to casual gait Romberg's Negative Review and summary of old records: HST (hard to read) = AHI 40 hypoxia 78% CPAP titration 14 cmH2O, 193 PLMD Compliance: 100% >4 hours at 7 hours and 10 minutes AHI 1.1 Assessment/Plan Diagnoses and all orders for this visit: EMIL (obstructive sleep apnea) - CPAP ORDERS Lifetime Hypoxia Sleep deprivation Hypersomnia Snoring 59-year-old male with a severe obstructive sleep apnea with an AHI of 40 and a hypoxia down to 78 percent And snoring. He is compliant with the CPAP machine and getting great benefit from it. He is using the machine 100 percent of the time with 93 percent of the time greater than 4 hours and average nightly usage of 6 hours and 50 minutes and residual AHI of 0.5. He could use more sleep time and just does not allow enough hours of sleep and has some mild sleep deprivation because of that. He may have some underlying periodic limb movement disorder But he does not feel like this is bothering him so we will keep him off of medication at this time he can call if it is a problem. Plan Compliance data reviewed as above he is compliant Try to get more hours of sleep closer to 7-1/2-8 Call for any worsening We will send for new supplies for the next year Monitor for PLMD these call if it has a problem The patient was counseled on proper sleep hygiene and adequate hours of sleep. The patient was counseled on the risks of stroke, FL, and sudden with EMIL, along with the need for compliance with the CPAP/BiPAP treatment. The diagnosis was all discussed with the patient. All questions were answered and they agreed with the treatment plan. Patient will call if there are any new issues or questions. Pt has been fully educated on their diagnosis, treatment options, follow up plan, and return instructions Return to clinic: 1 year documented in this encounter [facility] 07-12-2024 History of Presen t illness Narrative IM PROGRESS NOTE Patient - Stacy Boles Age - 59 y.o. - 1965 ASSESSMENT & PLAN 1. [...] (BMI) of 40.0 to 44.9 in adult ([facility]) -I reviewed his current weight and BMI [...] Testing No results found. Rudi Velez DO., [facility]: [phone] documented in this encounter [employer] 01-02-2024 History of Presen t illness Narrative [...] No results found. ECG: Rudi Velez DO., [facility]: [phone] documented in this encounter [facility] 11-07-2023 Miscellaneous Notes Formattin g of this note might be different from the original. ----- Message from Rudi Velez DO sent at 05/25/2023 7:06 PM EST ----- CV recheck Sent mychart msg LM on MV Sending letter documented in this encounter [facility] 11-07-2023 Telephone encount er Note ----- Message from Rudi Velez DO sent at 05/25/2023 7:06 PM EST ----- CV recheck [facility] 11-07-2023 Telephone encount er Note Sent mychart msg [facility] 11-07-2023 Telephone encount er Note LM on MV [facility] 11-07-2023 Telephone encount er Note Sending letter [facility] 10-04-2023 Miscellaneous Notes Formattin g of this note might be different from the original. Transfer to new pharmacy has held up two refills for Livitra and Lipitor. Requesting new scripts to updated pharmacy [facility]-04-[facility]23 Telephone encount er Note Transfer to new pharmacy has held up two refills for Livitra and Lipitor. [facility] 05-25-2023 History of Presen t illness Narrative [...] patient -proceed with home sleep study through [email or web address] 3. Encounter for screening for malignant neoplasm [...] been the same. 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 No problems performing his job. -has had [...] Testing No results found. Rudi Velez DO., [facility] Physicians Office: [phone] documented in this encounter [facility] Evaluation note Diagnosis Abnormal wellness exam- Primary EMIL (obstructive sleep apnea) Obstructive sleep apnea (adult) (pediatric) Encounter for screening for malignant neoplasm of prostate Essential hypertension Unspecified essential hypertension Hyperlipidemia, unspecified hyperlipidemia type documented in this [facility] Diagnosis Hyperlipidemia, unspecified Other male erectile dysfunction documented in this [facility] Diagnosis Essential hypertension Unspecified essential hypertension Essential (primary) hypertension Unspecified essential hypertension documented in this encounter [facility] Diagnosis Other male erectile dysfunction documented in this encounter [facility] Diagnosis Essential (primary) hypertension Unspecified essential hypertension documented in this encounter [facility]* Diagnosis Other male erectile dysfunction [facility] Diagnosis Hyperlipidemia, unspecified documented [facility] Diagnosis Essential hypertension- Primary Unspecified essential hypertension EMIL (obstructive sleep apnea) Obstructive sleep apnea (adult) (pediatric) Tear of lateral meniscus of left knee, current, initial encounter [facility] Hyperlipidemia, unspecified Essential (primary) hypertension Unspecified essential hypertension documented in this encounter [facility]* Diagnosis Other male erectile dysfunction Essential hypertension Unspecified essential hypertension [facility] Diagnosis Essential (primary) hypertension Unspecified essential hypertension Hyperlipidemia, unspecified documented in this encounter [facility]* Diagnosis Essential (primary) hypertension Unspecified essential hypertension documented in this encounter [facility]* Diagnosis Essential hypertension- Primary Unspecified essential hypertension MEIL (obstructive sleep apnea) Obstructive sleep apnea (adult) (pediatric) Hyperlipidemia, unspecified hyperlipidemia type Class 3 severe obesity due to excess calories with serious comorbidity and body mass index (BMI) of 40.0 to 44.9 in adult ([facility]) Acute medial meniscus tear of left knee, subsequent encounter Encounter for immunization documented in this encounter [facility] Diagnosis Essential hypertension Unspecified essential hypertension documented in this encounter [facility]* Diagnosis EMIL (obstructive sleep apnea)- Primary Obstructive sleep apnea (adult) (pediatric) Hypoxia Hypoxemia Sleep deprivation Problems related to lack of adequate sleep Hypersomnia Hypersomnia, unspecified Snoring Other dyspnea and respiratory abnormality documented in this encounter [facility]* Diagnosis Acute pain of left knee- Primary Acute medial meniscus tear, left, initial encounter [facility] Diagnosis Pre-op exam- Primary documented [facility]* Diagnosis Acute medial meniscus tear, left, initial encounter- Primary documented [facility]* Diagnosis Acute medial meniscus tear, left, initial encounter- Primary documented [facility]* Diagnosis S/P left knee arthroscopy- Primary [facility]* Diagnosis S/P left knee arthroscopy- Primary [facility]* Diagnosis Essential (primary) hypertension Unspecified essential hypertension Hyperlipidemia, unspecified documented in this encounter [facility]* Diagnosis Essential hypertension- Primary Unspecified essential hypertension EMIL (obstructive sleep apnea) Obstructive sleep apnea (adult) (pediatric) Hyperlipidemia, unspecified hyperlipidemia type Family history of colon cancer requiring screening colonoscopy [facility] [...] Health SystemInstructionsNot on filedocumented in this encounter [facility] Summary Purpose Family History No Family [...] CREATED AUTHOR AUTHOR'S ORGANIZ ATION 02/20/2022 [facility] DATE CREATED AUTHOR AUTHOR'S ORGANIZ ATION 07/15/2024 [facility] DATE CREATED AUTHOR AUTHOR'S ORGANIZ ATION 12/20/2024 [facility] DATE CREATED AUTHOR AUTHOR'S ORGANIZ ATION 12/22/2024 [facility] EPIC DATE CREATED AUTHOR AUTHOR'S ORGANIZ ATION 01/31/2025 [facility] Reason for Visit (unrecogniz ed section and content) Reason Comments Annual Exam Reason Onset Date Comments Med Refill 10/04/2023 Reason Onset Date Comments Med Refill 10/06/2023 Reason Comments Med Refill Reason Comments Hyperlipidemia Hypertension Reason Comments Annual Exam Reason Comments Sleep Apnea Reason Comments Pain Specialty Diagnoses / Procedures Referred By Celena bahena Referred To Contact Orthopaedic Surgery Diagnoses Acute medial meniscus tear of left knee, subsequent encounter Procedures 165 ([email or web address]) - Ambulatory referral to Orthopedic Surgery ([facility]) Rudi Velez MD [address] [place] [address] Phone: tel: fax: Jr. Brenda Middleton, [address] [place] [address] Phone: tel: fax: Referral ID Status Reason Start Date Expiration Date V isits Requested Visits Authorized [id number] Authorized 08/07/2024 08/07/2025 4 4 Reason Comments Pre-op Visit Reason Comments Post-op Care Teams (unrecognized sec tion and content) Senior Clinician Relationship Specialty Start Date End Date Rudi Velez DO [address] [place] [address] PCP - General Internal Medicine 02/27/18 Senior Clinician Relationship Specialty Start Date End Date Rudi Velez DO [address] [place] [address] PCP - General Internal Medicine 02/27/18 Senior Clinician Relationship Specialty Start Date End Date Rudi Velez DO [address] [place] [address] PCP - General Internal Medicine 02/27/18 Senior Clinician Relationship Specialty Start Date End Date Rudi Velez DO [address] [place] [address] PCP - General Internal Medicine 02/27/18 Senior Clinician Relationship Specialty Start Date End Date Rudi Velez DO [address] [place] [address] PCP - General Internal Medicine 02/27/18 Senior Clinician Relationship Specialty Start Date End Date Rudi Velez DO [address] [place] [address] PCP - General Internal Medicine 02/27/18 Senior Clinician Relationship Specialty Start Date End Date Rudi Velez DO [address] [place] [address] PCP - General Internal Medicine 02/27/18 Senior Clinician Relationship Specialty Start Date End Date Rudi Velez DO [address] [place] [address] PCP - General Internal Medicine 02/27/18 Senior Clinician Relationship Specialty Start Date End Date Rudi Velez MD [address] [place] [address] PCP - General Internal Medicine 09/25/24 Senior Clinician Relationship Specialty Start Date End Date Rudi Velez MD [address] [place] [address] PCP - General Internal Medicine 09/25/24 Senior Clinician Relationship Specialty Start Date End Date Rudi Velez MD [address] [place] [address] PCP - General Internal Medicine 09/25/24 Senior Clinician Relationship Specialty Start Date End Date Rudi Velez MD [address] [place] [address] PCP - General Internal Medicine 09/25/24 Senior Clinician Relationship Specialty Start Date End Date Rudi Velez MD [address] [place] [address] PCP - General Internal Medicine 09/25/24 Senior Clinician Relationship Specialty Start Date End Date Rudi Velez MD [address] [place] [address] PCP - General Internal Medicine 09/25/24 Senior Clinician Relationship Specialty Start Date End Date Rudi Velez MD [address] [place] [address] PCP - General Internal Medicine 09/25/24 Senior Clinician Relationship Specialty Start Date End Date Rudi Velez DO [address] [place] [address] PCP - General Internal Medicine 02/27/18 Senior Clinician Relationship Specialty Start Date End Date Rudi Velez DO [address] [place] [address] PCP - General Internal Medicine 02/27/18 FOR [...] BE BASED ON THE PRIMARY CLINICAL RECORDS. [facility] provides no warranty or guarantee of the accuracy or completeness of information in this document.
--- OUTSIDE RECORDS SUMMARY | 2025-02-09 22:03 | XMS_ITS | Encounter Summary ---
Author Organization [facility] Address [id number] [address] [place] [address] Care Team Providers Care Jewelry Sales Coordinator Name Role Phone Lawrence Simmons DO Primary Care Provider [phone] Encounter Details Date Type Department Care Team (Late st Contact Info) Description 05/26/2023 Orders Only [facility] - Family Medicine [address] [place] [phone] Lawrence Simmons DO [address] [place] [address] Essential hypertension (Primary Dx) Social History Tobacco Use Types [...] Diagnosis Essential hypertension- Primary Unspecified essential hypertension documented in this encounter Additional Health Concerns Assessment Noted Time PHQ-9 Depression Total Score: 0 05/25/19 24 4:15 PM EST documented as of this encounter Care Teams Jewelry Sales Coordinator Relationship Specialty Start Date End Date Lawrence Simmons DO [address] [place] [id number] PCP - General Internal Medicine 02/27/18 documented as of this encounter
--- OUTSIDE RECORDS SUMMARY | 2025-02-09 22:03 | XMS_ITS | Encounter Summary ---
Author [facility]-[id number] [address] [place] [address] Care Team Providers Care Incident Response Consultant Name Role Phone Lawrence Simmons Primary Care Provider [phone] Encounter Details Date Type Department Care Team (Late st Contact Info) Description 11/01/2024 Orders Only [facility] - Family Medicine [address] [place] [phone] Ref Prov, [place] [address] Social History Tobacco Use Types Packs/Day Years [...] Procedure Name Priority Date/Time Associated Diagnosis Comments ECG 12-LEAD Routine 10/23/2024 8:50 AM EDT documented in this encounter Results * ECG 12 lead (10/23/2024 8:50 AM EDT) us Not In System Ref Prov ECG ORDERABLES Final Res ult MANUALLY TRANSCRIBED RESULTS documented in this encounter Visit Diagnoses Not on filedocumented in this encounter Additional Health Concerns Assessment Noted Time PHQ-9 Depression Total Score: 0 07/12/19 25 3:22 PM EST documented as of this encounter Care Teams Incident Response Consultant Relationship Specialty Start Date End Date Lawrence Simmons DO [address] [place] [address] PCP - General Internal Medicine 02/27/18 documented as of this encounter
--- OUTSIDE RECORDS SUMMARY | 2025-02-09 22:03 | XMS_ITS | Encounter Summary ---
Author Organization [facility] Address [id number] [address] [place] [address] Care Team Providers Care Auto Rental Supervisor Name Role Phone Lawrence Simmons Primary Care Provider [phone] Encounter Details Date Type Department Care Team (Late st Contact Info) Description 02/11/2022 Orders Only [facility] Internal Medicine - Family Medicine [address] [place] [phone] Giselle Allan MA Hyperlipidemia, unspecified hyperlipidemia type Social History Tobacco Use Types Packs/Day Years [...] on file Sexual Orientation Not on file COVID-19 Exposure Response Date Recorded In the last month, have you been in contact with someone who was confirmed or suspected to have Coronavirus / COVID-19? No / Unsure 2022 2:54 PM EDT documented as of this encounter Plan of Treatment Not on file documented as of this encounter Procedures Procedure Name Priority Date/Time Associated Diagnosis Comments LIPID PROFILE Routine 02/02/2022 Hyperlipidemia, unspecified hyperlipidemia type COMPREHENSIVE METABOLIC PANEL Routine 02/02/2022 Hyperlipidemia, unspecified hyperlipidemia type documented in this encounter Results * Comprehensive metabolic panel (02/02/2022) Blood 02/02/2022 Lawrence Simmons DO LAB BLOOD ORDERABLES Final Resul t Performing Organization Address [facility]/ZIP Co de Phone Number [facility] * (ABNORMAL) Lipid panel (02/02/2022) External Cholesterol 185 <=200 [facility] External Cholesterol:Hdl 4.1 [facility] External Hdl Cholesterol 45 40 - 60 [facility] External Ldl (Calc) 94.4 [facility] External Triglycerides 228(A) <=150 [facility] External Very Low Lipoprotein 45.6 [facility] Blood 02/02/2022 Lawrence Simmons DO LAB BLOOD ORDERABLES Final Resul t Performing Organization Address [facility] de Phone Number [facility] documented in this encounter Visit Diagnoses Diagnosis Hyperlipidemia, unspecified hyperlipidemia type documented in this encounter Care Teams Auto Rental Supervisor Relationship Specialty Start Date End Date Lawrence Simmons DO [facility] [place] [address] PCP - General Internal Medicine 02/27/18 documented as of this encounter
--- OUTSIDE RECORDS SUMMARY | 2025-02-09 22:03 | XMS_ITS | Encounter Summary ---
Author Organization [employer] [facility] [employer] Address [facility]-[id number] [address] [place] [address] Care Team Providers Care Risk Compliance Manager Name Role Phone Lawrence Simmons Primary Care Provider Encounter Details Date Type Department Care Team (Late st Contact Info) Description 08/07/2024 Orders Only [facility] Internal Medicine - Family Medicine [address] [place] [phone] Devi Arteaga CMA Acute medial meniscus tear of left knee, subsequent encounter Social History Tobacco Use Types Packs/Day Years [...] Priority Date/Time Associated Diagnosis Comments MR KNEE LT WO CONT Routine 08/07/2024 7: 59 AM EDT Acute medial meniscus tear of left knee, subsequent encounter documented in this encounter Results * MR knee left without contrast (08/07/2024 7:59 AM EDT) Anatomical Region Laterality Modality MSK, Knee, Lower Extremities, Patella, MSK Cover a Left Magnetic Resonance Lawrence Simmons DO IMG MRI ORDERABLES Final Result documented in this encounter Visit Diagnoses Diagnosis Acute medial meniscus tear of left knee, subsequent encounter documented in this encounter Additional Health Concerns Assessment Noted Time PHQ-9 Depression Total Score: 0 07/12/19 25 3:22 PM EST documented as of this encounter Care Teams Risk Compliance Manager Relationship Specialty Start Date End Date Lawrence Simmons DO [address] [place] [address] PCP - General Internal Medicine 02/27/18 documented as of this encounter
--- OUTSIDE RECORDS SUMMARY | 2025-02-09 22:03 | XMS_ITS | Encounter Summary ---
Author Organization [employer] Address [facility][id number] [address] [place] [address] Care Team Providers Care Platform Power Technician Name Role Phone Lawrence Simmons DO Primary Care Provider [phone] Reason for Visit * Reason Comments Med Refill Encounter Details Date Type Department Care Team (Late st Contact Info) Description 07/12/2022 Refill [facility] Internal Medicine - Family Medicine [address] [place] [phone] Lawrence Simmons DO [address] [place] [address] Hyperlipidemia, unspecified; Essential (primary) hypertension Social History Tobacco Use Types Packs/Day [...] on file documented as of this encounter Miscellaneous Notes * Telephone Encounter - Dory Pritchett CMA - 07/12/2022 12:21 AM EST ----- Message from Lawrence Simmons DO sent at 07/12/2022 9:49 AM EST ----- Blood pressure recheck * Telephone Encounter - Dory Pritchett CMA - 07/12/2022 12:21 AM EST Left message to call and schedule * Telephone Encounter - Dory Pritchett CMA - 07/12/2022 12:21 AM EST ----- Message from Lawrence Simmons DO sent at 07/12/2022 9:49 AM EST ----- Blood pressure recheck documented in this encounter Plan of Treatment Not on file documented as of this encounter Visit Diagnoses Diagnosis Hyperlipidemia, unspecified Essential (primary) hypertension Unspecified essential hypertension documented in this encounter Care Teams Platform Power Technician Relationship Specialty Start Date End Date Lawrence Simmons DO [address] [place] [address] PCP - General Internal Medicine 02/27/18 documented as of this encounter
[2025-02-09 23:28] VITALS: BP 168/99; PULSE 62; TEMP 36.8; O2SAT 96; BMI 39.1
--- NOTE | 2025-02-09 23:34 | XR_ITS ---
The [address] [address] Patient Name: STACY DUKES MRN: [id number] date: 1965 Sex: M Assigned Patient Location: ER Current Patient Location: Accession/Order Number: [id number] Exam Date: 02/09/2025 23:40 Report Date: 02/10/2025 09:12 At the request of: GONZALES VILLASENOR DO Procedure: XR lumbar spine 2-3V 3 views of the lumbar spine INDICATION: Low back pain, radiculopathy COMPARISON: None FINDINGS: No fracture malalignment. Mild disc space narrowing and intermargin plate spurring L3-S1. Moderate disc space narrowing T12-L3. Facet arthropathy greatest lower lumbar spine greatest L5-S1. No fracture malalignment. XR/XR lumbar spine 2-3V IMPRESSION: Multilevel degenerative changes. Negative acute osseous abnormality. Impression dictated by: Reji Farley M.D. 02/10/2025 9:12 AM Dictation Location: [place] [address] Electronically authenticated by: [id number] Y Date: 02/10/2025 09:12
[2025-02-10] MEDS: LIDOCAINE 5% PATCH 1 PATCH TOPICAL (00:28)
[2025-02-10] MEDS: METHOCARBAMOL 500 MG TABLET PO (00:28)
[2025-02-10] MEDS: OXYCODONE HCL 5 MG TABLET 10 MG PO (00:28)
[2025-02-10] MEDS: KETOROLAC TROMETHAMINE 30 MG/ML VIAL IM (00:29)
--- NOTE | 2025-02-10 00:37 | ED.GENADUL1 ---
HPI HPI - General Adult General Chief complaint: Extremity Injury, Lower Stated complaint: lower back and lower extremity pain Time Seen by Provider: 02/09/25 22:28 Source: patient Mode of arrival: walk-in History of Present Illness HPI narrative: Patient is a 60-year-old male presenting to the emergency department with right lower back pain. Patient states that he was doing some heavy lifting yesterday. Since then, he said progressively worsening pain over the right lower part of his back. He states the pain radiates down his leg to his anterior hampton. He states this feels like when he had radiculopathy in his cervical spine which required fusion in the past. He took an oxycodone at home, however this only minimally helped his pain. He denies any weakness in the lower extremities. No numbness/tingling in the lower extremities. No loss of bladder/bowel function. He denies IV drug use or fevers. Related Data Allergies Allergy/AdvReac Type Severity Reaction Status Date / Time No Known Drug Allergies Allergy Verified 02/09/25 23:30 Review of Systems ROS Status of ROS 10 or more systems reviewed and unremarkable except as noted in history and below PFSH PFSH Social History Little interest or pleasure in doing things: not at all Feeling down, depressed, or hopeless: not at all Exam Narrative Exam Narrative: CONSTITUTIONAL: Well-appearing, answering questions and following commands appropriately SKIN: Was warm and dry, no rashes. EYES: Sclerae white. EARS, NOSE, THROAT: Moist oral mucosa. RESPIRATORY: Nonlabored respirations CARDIOVASCULAR: Normal rate and regular rhythm. There is no S3, S4, murmur, rub. GASTROINTESTINAL: Abdomen is nondistended. MUSCULOSKELETAL: Reproducible tenderness palpation throughout the paraspinal muscles of the right lower back. He is ambulating with a steady gait. No peripheral edema. No midline L-spine tenderness NEUROLOGIC: Patient is awake and alert. Equal strength and sensation to light touch in the bilateral lower extremities. Constitutional Vital Signs, click to edit/add: Last Vital Signs Temp 98.2 F 02/09/25 23:28 Pulse 62 02/09/25 23:28 Resp 20 02/09/25 23:28 BP 168/99 H 02/09/25 23:28 Pulse Ox 96 02/09/25 23:28 O2 Del Method Room Air 02/09/25 23:28 Course Vital Signs Vital signs: Vital Signs Temperature 98.2 F 02/09/25 23:28 Pulse Rate 62 02/09/25 23:28 Respiratory Rate 02/09/25 23:28 Blood Pressure 168/99 H 02/09/25 23:28 Pulse Oximetry 96 02/09/25 23:28 Oxygen Delivery Method Room Air 02/09/25 23:28 Temperature 98.2 F 02/09/25 23:28 Pulse Rate 62 02/09/25 23:28 Respiratory Rate 02/09/25 23:28 Blood Pressure 168/99 H 02/09/25 23:28 Pulse Oximetry 96 02/09/25 23:28 Oxygen Delivery Method Room Air 02/09/25 23:28 Medical Decision Making MDM Narrative Medical decision making narrative: Patient is a 60-year-old male presenting to the emergency department for evaluation of right lower back pain radiating down his right leg x 24 hours. His vital signs are within normal limits. He is afebrile and hemodynamically stable. Examination as noted above. He has no neurologic deficits. My clinical impression of the patient's back pain is secondary to lumbar radiculopathy, sciatica, musculoskeletal pain. No findings that would be suggestive of cauda equina syndrome. No history of IV drug use, fevers, midline vertebral tenderness to suggest spinal epidural abscess. No recent injuries to suggest fracture or dislocations. No history of cancer to suggest metastatic disease. Patient will be treated symptomatically with IM ketorolac, oral oxycodone, Robaxin, and lidocaine patch. X-rays were obtained. X-rays of the lumbar spine independently reviewed by myself demonstrated no acute osseous abnormalities. On reevaluation, patient's pain is somewhat improved. He feels comfortably discharged home. I do believe the patient is stable for discharge. Patient's presentation is most likely consistent with lumbar radiculopathy. They were instructed to follow up with his PCP should his symptoms persist. Return precautions were given including any new or worsening symptoms. I recommended NSAID use for the next week for further care at home. Patient understands and agrees to the plan. FINAL IMPRESSION: #Acute right-sided lumbar radiculopathy DISPOSITION: Discharged home CONDITION: Good Imaging Data xray lumbar spine: Attestation: I personally reviewed and interpreted this imaging study as follows: Discharge Plan Discharge Chief Complaint: Extremity Injury, Lower Clinical Impression: Acute lumbar radiculopathy Patient Disposition: Home, Self-Care Time of Disposition Decision: 00:38 Condition: Good Mode of Transportation: Private Vehicle Print Language: Citizen Of [place] Instructions: Lumbar Radiculopathy (ED) Referrals: RUDI VELEZ [Primary Care Provider, Internal Medicine] - 1 week
== END 2025-02-10 00:59 | disposition home or self-care (01) ==
PROVIDERS: Emergency Provider Student in an Organized Health Care Education/Training Program; PCP Internal Medicine
DX: M54.16 Radiculopathy, lumbar region (principal); Z98.1 Arthrodesis status
CPT/HCPCS: 72100; 99284; J1885